=== PATIENT | female | born 1970 | race Caucasian/White ===

== ENCOUNTER 2017-04-29 00:06 | Inpatient (IN) | payer OTHER ==
[2017-04-29] VITALS (13 sets, daily range): BP systolic 96–141; BP diastolic 43–86; PULSE 80–98; RESP 16–24; TEMP 97.9–99.7; O2SAT 93–99
[~2017-04-29] VITALS: Ht 160 cm; Wt 146.8 kg
--- NOTE | 2017-04-29 00:33 | PD ---
HPI Chief Complaint: Trauma (Alert) Time Seen by Provider: 00:16 Travel History International Travel<30 days: No Contact w/Intl Traveler<30days: No History of Present Illness HPI The patient is a 47 year old female who presents to the [facility] emergency department with a history of tripping and falling at a friend's house prior to arrival. She reports that she tripped on a carpet. She is unsure how she landed. She reports that she did strike her face on the wall. She denies having a loss of consciousness. She reports that she does have neck pain, right upper arm pain, and left knee pain. 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 She reports that she last received an injection of Lovenox a week ago. She is unsure when her tetanus was last updated. She denies having any numbness or tingling to her arms or legs. She denies having any weakness of her arms or legs. She denies having any chest pain, chest pressure, or shortness of breath currently. She denies having any abdominal pain. She denies having any recent vomiting, diarrhea, or urinary symptoms. She reports that she does have a history of chronic pain and does take oxycodone as needed. [facility] Past Medical History Narrative Medical The patient's past medical history is significant for prior DVT and PE, chronically anticoagulated on Coumadin, history of scleroderma, history of antiphospholipid antibody syndrome. Past Surgical History Narrative Surgical The patient has a past surgical history significant for a meniscus repair, Jsldzm-y-Oynl placement. Social History Alcohol Use: No Tobacco Use: No Substance Use: No Allergies-Medications (Allergen,Severity, Reaction): Coded Allergies: Sulfa (Sulfonamide Antibiotics) (Verified Allergy, Intermediate, 04/29/17) penicillin G (Verified Allergy, Intermediate, 04/29/17) Reported Meds & Prescriptions Reported Meds & Active Scripts Active Reported Minipress (Prazosin HCl) 5 Mg Cap 5 Mg PO BID Gabapentin 100 Mg Cap 100 Mg PO BID Prednisone 5 Mg Tab 5 Mg PO DAILY Sildenafil 20 Mg Tab 20 Mg PO TID Furosemide 20 Mg Tab 20 Mg PO BID Plaquenil (Hydroxychloroquine Sulfate) 200 Mg Tab 200 Mg PO BID Take with food Lexapro (Escitalopram Oxalate) 20 Mg Tab 20 Mg PO DAILY Pantoprazole (Pantoprazole Sodium) 40 Mg Tab 40 Mg PO DAILY Simvastatin 20 Mg Tab 20 Mg PO DAILY Warfarin 5 Mg Tab 5 Mg PO DAILY Nifedipine ER 24 HR (Nifedipine) 60 Mg Tab 60 Mg PO DAILY Warfarin 10 Mg Tab 10 Mg PO DAILY Flexeril (Cyclobenzaprine HCl) 10 Mg Tab 10 Mg PO HS Aspirin Children's (Aspirin) 81 Mg Chew 81 Mg CHEW DAILY Review of Systems Except as stated in HPI: all other systems reviewed are Neg General / Constitutional: No: Fever Eyes: No: Visual changes HENT: Positive: Headaches, Neck Pain, No: Neck Stiffness Cardiovascular: No: Chest Pain or Discomfort Respiratory: No: Shortness of Breath Gastrointestinal: No: Nausea, Vomiting, Diarrhea, Abdominal Pain Genitourinary: No: Dysuria Musculoskeletal: Positive: Myalgias, Arthralgias, Limited ROM, Pain, No: Atrophy Skin: No Rash Neurologic: No: Weakness, Focal Abnormalities, Change in Mentation, Slurred Speech, Sensory Disturbance Psychiatric: No: Depression Endocrine: No: Polydipsia Hematologic/Lymphatic: No: Easy Bruising Physical Exam Narrative General: The patient is a well-developed well-nourished female, uncomfortable appearing on examination reporting right arm pain, left knee pain, and neck pain. The patient is brought in by ambulance services. The patient refused a backboard and cervical spine immobilization prior to arrival. However when she arrives to this facility, the patient is agreeable to have a cervical collar placed. This was placed at this time. Head and Neck exam: Head is normocephalic, with evidence of trauma around the right eye. The patient reports having upper lid tenderness on palpation, superior orbital ridge tenderness on palpation. No crepitus or step-off. No facial bone tenderness or increased facial bone mobility noted on palpation. Eyes: EOMI, pupils are equal round and reactive to light. The patient has periorbital ecchymosis around the right eye. The patient has intact sensation in bilateral eyes. Nose: Midline septum with pink mucous membranes Mouth: Dentition unremarkable. Moist mucus membranes. Posterior oropharynx is not erythematous. No tonsillar hypertrophy. Uvula midline. Airway patent. Neck: The patient is immobilized in a cervical collar. No tracheal deviation. The trachea appears midline. Cardiovascular: Regular rate and rhythm with a 2/6 systolic murmur, no gallops or rubs. No pulse deficit to the extremities on simultaneous auscultation and palpation of her radial artery. Lungs: Clear to auscultation bilaterally. No wheezes, rhonchi, or rales. No chest wall tenderness to palpation. No erythema or ecchymosis noted. No crepitus , step off, or flail segment noted. Abdomen: Soft, without tenderness to palpation in all 4 quadrants of the abdomen. No guarding, rebound, or rigidity. No erythema or ecchymosis noted. Extremities: No instability or pain noted on pelvic rock. No clubbing, cyanosis , or edema. 2+ pulses in all 4 extremities. No extremity tenderness or deformity noted on palpation or passive/ active range of motion, except in the area of interest, the right upper arm, and left knee. The patient is noted on examination of the left knee to have anterior swelling and hematoma formation. The patient has decreased range of motion reported related to pain. The patient is unable to flex her knee. The patient is able to lift her left leg with 5/5 strength. The patient denies having any left hip pain. The patient on examination of the right upper arm is noted to have tenderness on palpation overlying the midshaft of the humerus up into the shoulder. There is no crepitus or step-off palpated, however the patient does have decreased range of motion. No open wounds. Back: No spinous process tenderness to palpation. No stepoff or crepitus noted. No costovertebral angle tenderness to palpation. No erythema or ecchymosis. Neurologic Exam: Cranial nerves 2-12 were intact on exam. Strength is 5/5 in all 4 extremities. No sensory deficits noted. Skin Exam: No rash noted. Intact skin that is warm and dry. Data Data Last Documented VS Vital Signs Date Time Temp Pulse Resp B/P (MAP) Pulse Ox O2 Delivery O2 Flow Rate FiO2 04/29/17 01:28 87 20 133/62 (85) 96 Nasal Cannula 2.00 04/29/17 00:27 97.9 Orders Orders I-Stat Profile (04/29/17 00:16) Complete Blood Count With Diff (04/29/17 00:16) Prothrombin Time / Inr (Pt) (04/29/17 00:16) Act Partial Throm Time (Ptt) (04/29/17 00:16) Type And Screen (04/29/17 00:16) Fibrinogen (04/29/17 00:16) Alcohol (Ethanol) (04/29/17 00:16) Beta Hcg (Quant/Titer) (04/29/17 00:16) Red Blood Cells (Rbc) (04/29/17 00:16) Chest, Single Ap (04/29/17 00:16) Pelvis, Ap Only (Routine) (04/29/17 00:16) Ct Brain W/O Iv Contrast(Rout) (04/29/17 00:16) Ct Cerv Spine W/O Contrast (04/29/17 00:16) Ct Abd/Pel W Iv Contrast(Rout) (04/29/17 00:16) Ct Thorax/ Chest W Iv Contrast (04/29/17 00:16) Apply Cervical Collar (04/29/17 00:16) Iv Access Insert/Monitor (04/29/17 00:16) Ecg Monitoring (04/29/17 00:16) Oximetry (04/29/17 00:16) Oxygen Administration (04/29/17 00:16) Drug Screen, Random Urine (04/29/17 00:16) Knee, Ltd (1 Or 2vws) (04/29/17 00:16) Ct Facial Bones W/O Iv Cont (04/29/17 00:16) Propofol 200 Mg/20 Ml Inj (Diprivan 200 (04/29/17 00:35) Propofol 200 Mg/20 Ml Inj (Diprivan 200 (04/29/17 00:46) Morphine Inj (Morphine Inj) (04/29/17 00:51) Ondansetron Inj (Zofran Inj) (04/29/17 00:51) Humerus, One View (04/29/17 ) Humerus, One View (04/29/17 00:16) Collar [place] (04/29/17 ) Sling And Swathe (04/29/17 ) Cefazolin 2 Gm Premix (Ancef 2 Gm Premix (04/29/17 01:08) Hqsj-Mmd-Jkijjc (Booster) Inj (Boostrix (04/29/17 01:07) Sodium Chlor 0.9% 1000 Ml Inj (Ns 1000 M (04/29/17 01:15) Glyf-Gce-Ctvrvg (Booster) Inj (Boostrix (04/29/17 01:41) Consult Orthopedic (04/29/17 ) Admit Order (Ed Use Only) (04/29/17 02:19) AGID (04/29/17 00:28) Labs Laboratory Tests Test 04/29/17 00:20 White Blood Count 8.9 TH/MM3 Red Blood Count 3.72 MIL/MM3 Hemoglobin 10.1 GM/DL Bedside Hemoglobin 10.9 G/DL Hematocrit 31.6 % Bedside Hematocrit 32.0 % Mean Corpuscular Volume 84.9 FL Mean Corpuscular Hemoglobin 27.0 PG Mean Corpuscular Hemoglobin Concent 31.8 % Red Cell Distribution Width 18.7 % Platelet Count 406 TH/MM3 Mean Platelet Volume 7.2 FL Neutrophils (%) (Auto) 78.4 % Lymphocytes (%) (Auto) 10.5 % Monocytes (%) (Auto) 9.9 % Eosinophils (%) (Auto) 0.4 % Basophils (%) (Auto) 0.8 % Neutrophils # (Auto) 7.0 TH/MM3 Lymphocytes # (Auto) 0.9 TH/MM3 Monocytes # (Auto) 0.9 TH/MM3 Eosinophils # (Auto) 0.0 TH/MM3 Basophils # (Auto) 0.1 TH/MM3 CBC Comment DIFF FINAL Differential Comment Prothrombin Time 50.2 SEC Prothromb Time International Ratio 5.0 RATIO Activated Partial Thromboplast Time 45.5 SEC Fibrinogen 347 mg/dL Bedside Sodium 140 MMOL/L Bedside Potassium 4.1 MMOL/L Bedside Chloride 102 MMOL/L Bedside Blood Urea Nitrogen 11 MG/DL Bedside Creatinine 0.8 MG/DL Bedside Glucose 102 MG/DL Human Chorionic Gonadotropin, Quant LESS THAN 1 MIU/ML Ethyl Alcohol Level LESS THAN 3 MG/DL [facility] Medical Screen Exam Complete: Yes Emergency Medical Condition: Yes Medical Record Reviewed: Yes Interpretation(s) Last Impressions Pelvis X-Ray 04/29/1715 Signed Impressions: Service Date/Time: Saturday, April 29, 2017 00:21 - CONCLUSION: 1. No acute fracture or dislocation. Adan Shrestha MD Maxillofacial CT 04/29/1715 Signed Impressions: Service Date/Time: Saturday, April 29, 2017 00:59 - CONCLUSION: 1. No acute facial fracture. Adan Shrestha MD Knee X-Ray 04/29/176 Signed Impressions: Service Date/Time: Saturday, April 29, 2017 00:21 - CONCLUSION: 1. No acute fracture or dislocation. Adan Shrestha MD Humerus X-Ray 04/29/176 Signed Impressions: Service Date/Time: Saturday, April 29, 2017 00:21 - CONCLUSION: 1. Redemonstration of impacted slightly comminuted fracture of the humeral head with interval reduction of the distal fragment. Adan Shrestha MD ADDENDUM: There is a large fragment of the humeral head that remains inferiorly displaced. Adan Shrestha MD Head CT 04/29/1715 Signed Impressions: Service Date/Time: Saturday, April 29, 2017 00:59 - CONCLUSION: 1. No acute intracranial abnormality. Adan Shrestha MD Chest X-Ray 04/29/1715 Signed Impressions: Service Date/Time: Saturday, April 29, 2017 00:21 - CONCLUSION: 1. Comminuted fracture of the right humeral head. 2. Otherwise, negative portable chest status post trauma. Adan Shrestha MD Chest CT 04/29/176 Signed Impressions: Service Date/Time: Saturday, April 29, 2017 00:59 - CONCLUSION: 1. Comminuted impacted fracture of the right humeral head with displacement of large humeral head fragment anteriorly and inferiorly with respect to the glenoid fossa. 2. Mild diffuse ground glass opacities in the lower lobes, likely atelectasis although pulmonary contusions cannot be entirely excluded. 3. Mildly dilated fluid filled esophagus. Adan Shrestha MD Cervical Spine CT 04/29/176 Signed Impressions: Service Date/Time: Saturday, April 29, 2017 00:59 - CONCLUSION: 1. No acute fracture or subluxation. Adan Shrestha MD Abdomen/Pelvis CT 04/29/176 Signed Impressions: Service Date/Time: Saturday, April 29, 2017 00:59 - CONCLUSION: 1. No CT evidence for acute traumatic injury in the abdomen or pelvis. 2. 8mm nonobstructing calcified calyceal calculus in the inferior pole of the right kidney. Adan Shrestha MD Upper Extremity CT 04/29/17 Signed Impressions: Service Date/Time: Saturday, April 29, 2017 08:24 - CONCLUSION: Comminuted and displaced fracture through the right proximal humeral surgical neck with displaced and dislocated humeral head fragment which is displaced medially and the greater tuberosity and lateral aspect of the humeral head displaced laterally. Eleazar Triplett MD Humerus X-Ray 04/29/17 Signed Impressions: Service Date/Time: Saturday, April 29, 2017 00:21 - CONCLUSION: 1. Partially imaged comminuted fracture the right humeral head. Adan Shrestha MD Differential Diagnosis Right shoulder fracture, versus dislocation, versus humerus fracture, versus contusion, versus left knee contusion, versus left knee fracture, versus intracranial hemorrhage, versus cervical spine injury, versus facial fracture. Narrative Course During the course of the patient's emergency department visit, the patient's history, examination, and differential diagnosis were reviewed with the patient. A level 2 trauma alert was called on this patient as the patient met criteria based on the history of fall, head injury, anticoagulation on Coumadin. The patient was placed on a compliance monitor with oximetry and frequent blood pressure monitoring. The patient had IV access obtained and blood work sent for analysis. The patient was initially provided morphine for pain, Zofran for nausea. The patient was given an update of his tetanus, Ancef 2 g was provided IV. The patient's laboratory studies were reviewed and remarkable for a white count of 8.9, hemoglobin 10.1, platelets 4 6 with 78.4 neutrophils, i-STAT was unremarkable with creatinine of 0.8, INR 5.0, alcohol level less than 3 Radiology studies were reviewed and remarkable for an x-ray of the left knee that shows no acute fracture or dislocation, pelvis x-ray shows no acute abnormality. Right humerus fracture reveals a partially imaged comminuted fracture of the right humeral head with inferior displacement of the distal fragment. Repeat x-ray postreduction revealed redemonstration of impacted slightly comminuted fracture of the humeral head with interval reduction of the distal fragment. Large fragment of the humeral head continues to remain inferiorly displaced. A call was placed out to Dr. Ca, the orthopedic physician on-call at approximately 2 AM. We did discuss the patient's findings regarding the initial x-ray of the patient's humerus, repeat x-ray after relocation, and CT scan findings on CT scan of the chest. She recommends continuation of the sling and swath and holding Coumadin as her INR is 5. I spoke to Dr. Salinas regarding this patient's case at approximately 2:15 AM. We discussed the imaging findings and as the patient has a single traumatic injury, and no intervention is necessary by trauma surgery, he recommends that the patient be admitted to the hospitalist service. The patient's results were discussed with the patient, including the plan of care. I explained that further testing and/ or monitoring is indicated based on the patient's history, examination, and/ or laboratory findings. Therefore, I recommended admission for additional evaluation. The patient expressed understanding and was agreeable with this plan. The patient was admitted to the hospital in stable condition and sent to a bed under the care of the [facility] service. Procedures Procedure Narrative After the risks and benefits were discussed the following procedure was performed: MODERATE SEDATION: The patient was placed on a compliance monitor and pulse oximetry. An ambu bag and suction was immediately available at bedside. The patient was monitored by the nurse. Oxygen saturation , heart rate and blood pressure were monitored. Procedural sedation was acheived using propofol. The patient was observed until awake and alert. Procedural Sedation time in attendance was 20 minutes. Closed reduction of left shoulder fracture dislocation: Gentle traction was applied in line with the patient's humerus while slightly abducting the right arm and externally rotating the shoulder. The patient had palpable realignment of the fracture fragments. A postreduction film revealed that the patient's humeral head appeared to be realigned back in the glenoid fossa. Another fracture fragment was noted off of the humeral head. Trauma Alert - Level Two Trauma Alert Level Two: Full trauma team activate, Patient evaluated, Trauma surgeon called Physician Communication The patient's case including history, pertinent physical examination findings, and laboratory studies were discussed with Dr. Ca, Dr. Grewal, and Dr. Tracey. It was agreed that the patient would be admitted to the [facility] service. Diagnosis Diagnosis: Primary Impression: Head injury Qualified Codes: S09.90XA - Unspecified injury of head, initial encounter Additional Impressions: Anticoagulated on Coumadin Elevated INR Fracture of humeral head, closed Qualified Codes: S42.291A - Other displaced fracture of upper end of right humerus, initial encounter for closed fracture Admitting Physician Requests: it Estephania Zafar MD Apr 29, 2017 00:33
[2017-04-29] MEDS ORDERED: PROPOFOL 200 MG/20 ML AMP ONE ×2 (00:35→00:46)
[2017-04-29] MEDS ORDERED: GABA100C4 PO (00:44)
[2017-04-29] MEDS ORDERED: PLAQ200T PO (00:44)
[2017-04-29] MEDS ORDERED: PRED5TAB PO (00:44)
[2017-04-29] MEDS ORDERED: WARF-22 PO (00:44)
[2017-04-29] MEDS ORDERED: SILD20TA11 PO (00:44)
[2017-04-29] MEDS ORDERED: PRAZ5 PO (00:44)
[2017-04-29] MEDS ORDERED: FURO20TA PO (00:44)
[2017-04-29] MEDS ORDERED: LEXA20TA PO (00:44)
[2017-04-29] MEDS ORDERED: CYCL10TA PO (00:44)
[2017-04-29] MEDS ORDERED: WARF-23 PO (00:44)
[2017-04-29] MEDS ORDERED: PANT40TA3 PO (00:44)
[2017-04-29] MEDS ORDERED: SIMV20TA PO (00:44)
[2017-04-29] MEDS ORDERED: NIFE60TA58 PO (00:44)
[2017-04-29] MEDS ORDERED: ASPI81CH7 CHEW (00:44)
[2017-04-29 00:46] LABS: BASOPHIL # 0.1 TH/MM3 (0-0.2); BASOPHIL % 0.8 % (0.0-2.0); EOSINOPHIL % 0.4 % (0.0-4.0); HEMATOCRIT 31.6 % (35.0-46.0); HEMOGLOBIN 10.1 GM/DL (11.6-15.3); LYMPH % 10.5 % (9.0-44.0); LYMPHOCYTE # 0.9 TH/MM3 (1.0-4.8); MEAN CELL VOLUME 84.9 FL (80.0-100.0); MEAN CORPUSCULAR HGB CONC 31.8 % (32.0-36.0); MEAN PLATELET VOLUME 7.2 FL (7.0-11.0); MONO % 9.9 % (0.0-8.0); MONOCYTE # 0.9 TH/MM3 (0-0.9); NEUT % 78.4 % (16.0-70.0); PLATELET COUNT 406 TH/MM3 (150-450); RED BLOOD COUNT 3.72 MIL/MM3 (4.00-5.30); RED CELL DISTRIBUTION WIDTH 18.7 % (11.6-17.2); WHITE BLOOD COUNT 8.9 TH/MM3 (4.0-11.0)
[2017-04-29] MEDS ORDERED: ONDANSETRON HCL 4 MG/2 ML VIAL ONE (00:51)
[2017-04-29] MEDS ORDERED: MORPHINE SULFATE 4 MG/ML INJ ONE (00:51)
[2017-04-29] MEDS ORDERED: IOHEXOL 350 MG/ML 10 ML VIAL (for RAD DIAG) IVCONTRAST ONE (00:59)
[2017-04-29] MEDS ORDERED: DIPHTH/TETANUS/ACEL PERTUSSIS (BOOSTER) 0.5 ML VIAL/PFS IM ONE ×2 (01:07→01:41)
[2017-04-29] MEDS ORDERED: ceFAZolin 2 GM PREMIX 50 ML IV STA (01:08)
--- NOTE | 2017-04-29 01:11 | RADRPT ---
EXAM DATE/TIME: 04/29/2017 00:59 [facility] COMPARISON: No previous studies available for comparison. INDICATIONS : Trauma alert; fall. RADIATION DOSE: 69.15 CTDIvol (mGy) MEDICAL HISTORY : Non-responsive. SURGICAL HISTORY : Non-responsive. ENCOUNTER: Initial ACUITY: 1 day PAIN SCALE: Non-responsive LOCATION: cranial TECHNIQUE: Multiple contiguous axial images were obtained of the head. Using automated exposure control and adj ustment of the mA and/or kV according to patient size, radiation dose was kept as low as reasonably a chievable to obtain optimal diagnostic quality images. DICOM format image data is available electro nically for review and comparison. FINDINGS: CEREBRUM: The ventricles are normal for age. No evidence of midline shift, mass lesion, hemorrhage or acute in farction. No extra-axial fluid collections are seen. POSTERIOR FOSSA: The cerebellum and brainstem are intact. The 4th ventricle is midline. The cerebellopontine angle i s unremarkable. EXTRACRANIAL: The visualized portion of the orbits is intact. SKULL: The calvaria is intact. No evidence of skull fracture. CONCLUSION: 1. No acute intracranial abnormality. Adan Shrestha MD on April 29, 2017 at 1:09 Board Certified Radiologist. This report was verified electronically.
[2017-04-29 01:12] LABS: PROTHROMBIN TIME - PATIENT 50.2 SEC (9.8-11.6)
[2017-04-29] MEDS ORDERED: SODIUM CHLOR 0.9% 1000 ML INJ 1,000 ML IV ONE (01:15)
--- NOTE | 2017-04-29 01:17 | RADRPT ---
EXAM DATE/TIME: 04/29/2017 00:21 [facility] COMPARISON: No previous studies available for comparison. INDICATIONS : Trauma alert. Fall. MEDICAL HISTORY : None. SURGICAL HISTORY : None. ENCOUNTER: Initial ACUITY: 1 day PAIN SCORE: 10/10 LOCATION: Bilateral chest FINDINGS: Right IJ Iczeuf-w-Mupb with tubing in the mid SVC. No significant focal pleural or parenchymal opacit ies. No pneumothorax or effusion. Cardiomediastinal contours are within normal limits given technique . Comminuted fracture of the right humerus CONCLUSION: 1. Comminuted fracture of the right humeral head. 2. Otherwise, negative portable chest status post trauma. Adan Shrestha MD on April 29, 2017 at 1:15 Board Certified Radiologist. This report was verified electronically.
--- NOTE | 2017-04-29 01:18 | RADRPT ---
EXAM DATE/TIME: 04/29/2017 00:21 [facility] COMPARISON: No previous studies available for comparison. INDICATIONS : Trauma alert. Fall. Right humerus pain. MEDICAL HISTORY : None. SURGICAL HISTORY : None. ENCOUNTER: Initial ACUITY: 1 day PAIN SCORE: 10/10 LOCATION: Right humerus. FINDINGS: Comminuted fracture of the right humeral head with inferior displacement of the distal fragment. Regine ining osseous structures are intact. Soft tissues are unremarkable. CONCLUSION: 1. Partially imaged comminuted fracture the right humeral head. Adan Shrestha MD on April 29, 2017 at 1:16 Board Certified Radiologist. This report was verified electronically.
--- NOTE | 2017-04-29 01:21 | RADRPT ---
EXAM DATE/TIME: 04/29/2017 00:21 [facility] COMPARISON: No previous studies available for comparison. INDICATIONS : Trauma alert. Post fall. MEDICAL HISTORY : None. SURGICAL HISTORY : None. ENCOUNTER: Initial ACUITY: 1 day PAIN SCORE: 10/10 LOCATION: pelvis. FINDINGS: A single frontal view of the pelvis demonstrates no evidence of fracture. The bony pelvic ring is in tact. Bony mineralization is normal. The soft tissues are intact. CONCLUSION: 1. No acute fracture or dislocation. Adan Shrestha MD on April 29, 2017 at 1:20 Board Certified Radiologist. This report was verified electronically.
--- NOTE | 2017-04-29 01:21 | RADRPT ---
EXAM DATE/TIME: 04/29/2017 00:21 This report includes an Addendum and supersedes previous reports for this exam. [facility] COMPARISON: CHEST SINGLE AP, April 29, 2017, 0:21. INDICATIONS : Post reduction. Trauma alert. Post fall. MEDICAL HISTORY : None. SURGICAL HISTORY : None. ENCOUNTER: Initial ACUITY: 1 day PAIN SCORE: 10/10 LOCATION: Right humerus. FINDINGS: There has been interval reduction of the right humerus with a near-anatomic alignment of the humeral head with respect to the glenoid. Redemonstration of an impacted slightly comminuted fracture of the humeral head. Remainder of the exam is unchanged. CONCLUSION: 1. Redemonstration of impacted slightly comminuted fracture of the humeral head with interval reducti on of the distal fragment. Adan Shrestha MD on April 29, 2017 at 1:17 Board Certified Radiologist. This report was verified electronically. ADDENDUM: There is a large fragment of the humeral head that remains inferiorly displaced. Adan Shrestha MD on April 29, 2017 at 1:26 Board Certified Radiologist. This report was verified electronically.
--- NOTE | 2017-04-29 01:22 | RADRPT ---
EXAM DATE/TIME: 04/29/2017 00:21 [facility] COMPARISON: No previous studies available for comparison. INDICATIONS : Trauma alert. Left knee pain post fall. MEDICAL HISTORY : None. SURGICAL HISTORY : None. ENCOUNTER: Initial ACUITY: 1 day PAIN SCORE: 10/10 LOCATION: Left knee. FINDINGS: Two view examination of the left knee demonstrates no evidence of fracture or dislocation. Bony mine ralization is normal. Degenerative changes most prominently at the medial and patellofemoral compartm ents. The suprapatellar soft tissues have a normal configuration. CONCLUSION: 1. No acute fracture or dislocation. Adan Shrestha MD on April 29, 2017 at 1:20 Board Certified Radiologist. This report was verified electronically.
--- NOTE | 2017-04-29 01:30 | RADRPT ---
EXAM DATE/TIME: 04/29/2017 00:59 [facility] COMPARISON: No previous studies available for comparison. INDICATIONS : Trauma alert; fall. RADIATION DOSE: 32.24 CTDIvol (mGy) MEDICAL HISTORY : Non-responsive. SURGICAL HISTORY : Non-responsive. ENCOUNTER: Initial ACUITY: 1 day PAIN SCALE: Non-responsive LOCATION: Bilateral neck TECHNIQUE: Volumetric scanning of the cervical spine was performed. Multiplanar reconstructions in the sagittal, coronal and oblique axial planes were performed. Using automated exposure control and adjustment o f the mA and/or kV according to patient size, radiation dose was kept as low as reasonably achievable to obtain optimal diagnostic quality images. DICOM format image data is available electronically f or review and comparison. FINDINGS: Vertebral body heights are maintained. Osseous structures are intact without evidence for acute bony fracture. Dens is intact. Sagittal alignment is maintained. There is a normal C1-2 relationship. Face ts are normally aligned. There is no significant prevertebral soft tissue hematoma. No significant ce rvical adenopathy or gross mass. The thyroid appears unremarkable. Visualized lung apices are clear w ithout pneumothorax. CONCLUSION: 1. No acute fracture or subluxation. Adan Shrestha MD on April 29, 2017 at 1:28 Board Certified Radiologist. This report was verified electronically.
--- NOTE | 2017-04-29 01:40 | RADRPT ---
EXAM DATE/TIME: 04/29/2017 00:59 [facility] COMPARISON: No previous studies available for comparison. INDICATIONS : Trauma alert; fall. RADIATION DOSE: 26.35 CTDIvol (mGy) MEDICAL HISTORY : Non-responsive. SURGICAL HISTORY : Non-responsive. ENCOUNTER: Initial ACUITY: 1 day PAIN SCORE: 6/10 LOCATION: Bilateral facial TECHNIQUE: Volumetric scanning of the facial bones was performed. Using automated exposure control and adjustme nt of the mA and/or kV according to patient size, radiation dose was kept as low as reasonably achiev able to obtain optimal diagnostic quality images. DICOM format image data is available electronicMEDOP y for review and comparison. FINDINGS: ORBITS: The orbital and infraorbital osseous structures are intact. The retroconal structures have a normal configuration. No radiopaque foreign bodies are seen. NASAL BONE: The nasal bone and maxillary spine are intact ZYGOMATIC ARCHES: Symmetric without evidence of fracture. SINUSES: The maxillary, ethmoid and frontal sinuses are intact. No air-fluid levels seen. NASAL CAVITY: The nasal septum is intact and midline. The lacrimal ducts are intact. SOFT TISSUES: No radiopaque foreign bodies seen. Right anterior scalp/periorbital hematoma.. INTRACRANIAL: No intracranial air seen. CRIBIFORM PLATE: Grossly intact. CONCLUSION: 1. No acute facial fracture. Adan Shrestha MD on April 29, 2017 at 1:38 Board Certified Radiologist. This report was verified electronically.
--- NOTE | 2017-04-29 01:44 | RADRPT ---
EXAM DATE/TIME: 04/29/2017 00:59 [facility] COMPARISON: No previous studies available for comparison. INDICATIONS : Trauma alert; fall. IV CONTRAST: 100 cc Omnipaque 350 (iohexol) IV ; Cumulative dose for multiple exams. RADIATION DOSE: 36.66 CTDIvol (mGy) ; Combined studies - Thorax/Abdomen/Pelvis; Patient body habitus MEDICAL HISTORY : Non-responsive. SURGICAL HISTORY : Non-responsive. ENCOUNTER: Initial ACUITY: 1 day PAIN SCALE: 5/10 LOCATION: Bilateral chest TECHNIQUE: Volumetric scanning of the chest was performed. Using automated exposure control and adjustment of t he mA and/or kV according to patient size, radiation dose was kept as low as reasonably achievable to obtain optimal diagnostic quality images. DICOM format image data is available electronically for review and comparison. Follow-up recommendations for detected pulmonary nodules are based at a minimum on nodule size and pa tient risk factors according to Fleischner Society Guidelines. FINDINGS: LUNGS: Mild ground glass opacities in the lower lobes bilaterally likely reflecting atelectasis. PLEURA: No significant pleural effusion or pneumothorax. MEDIASTINUM: The heart and great vessels demonstrate no acute abnormality. There is no mediastinal or hilar lymph adenopathy. The esophagus is slightly dilated and fluid-filled. AXILLAE: Within normal limits. No lymphadenopathy. SKELETAL: There is a slightly comminuted impacted displaced fracture of the right humeral head. Large humeral h ead fragment is noted anteriorly and inferiorly with respect to the glenoid fossa. MISCELLANEOUS: The visualized upper abdominal organs demonstrate no acute abnormality. CONCLUSION: 1. Comminuted impacted fracture of the right humeral head with displacement of large humeral head fra gment anteriorly and inferiorly with respect to the glenoid fossa. 2. Mild diffuse ground glass opacities in the lower lobes, likely atelectasis although pulmonary cont usions cannot be entirely excluded. 3. Mildly dilated fluid filled esophagus. Adan Shrestha MD on April 29, 2017 at 1:39 Board Certified Radiologist. This report was verified electronically.
--- NOTE | 2017-04-29 01:47 | RADRPT ---
EXAM DATE/TIME: 04/29/2017 00:59 [facility] COMPARISON: No previous studies available for comparison. INDICATIONS : Trauma alert; fall. IV CONTRAST: 100 cc Omnipaque 350 (iohexol) IV ; Cumulative dose for multiple exams. ORAL CONTRAST: No oral contrast ingested. RADIATION DOSE: 36.66 CTDIvol (mGy) ; Combined studies - Thorax/Abdomen/Pelvis; Patient body habitus MEDICAL HISTORY : Non-responsive. SURGICAL HISTORY : Non-responsive. ENCOUNTER: Initial ACUITY: 1 day PAIN SCALE: 5/10 LOCATION: Bilateral abdomen. TECHNIQUE: Volumetric scanning of the abdomen and pelvis was performed. Using automated exposure control and ad justment of the mA and/or kV according to patient size, radiation dose was kept as low as reasonably achievable to obtain optimal diagnostic quality images. DICOM format image data is available electro nically for review and comparison. FINDINGS: LOWER LUNGS: The visualized lower lungs are clear. LIVER: Homogeneous density without lesion. There is no dilation of the biliary tree. No calcified gallston es. SPLEEN: Normal size without lesion. PANCREAS: Within normal limits. KIDNEYS: 8mm calcified calyceal calculus in the right kidney. Kidneys otherwise symmetrical in appearance with out evidence for hydronephrosis or perinephric fluid. ADRENAL GLANDS: Within normal limits. VASCULAR: There is no aortic aneurysm. BOWEL/MESENTERY: The stomach, small bowel, and colon demonstrate no acute abnormality. There is no free intraperitone al air or fluid. ABDOMINAL WALL: Within normal limits. RETROPERITONEUM: There is no lymphadenopathy. BLADDER: No wall thickening or mass. REPRODUCTIVE: Within normal limits. INGUINAL: There is no lymphadenopathy or hernia. MUSCULOSKELETAL: Osseous structures are intact without evidence for acute bony fracture. Degenerative spondylosis of t he lumbar spine. CONCLUSION: 1. No CT evidence for acute traumatic injury in the abdomen or pelvis. 2. 8mm nonobstructing calcified calyceal calculus in the inferior pole of the right kidney. Adan Shrestha MD on April 29, 2017 at 1:43 Board Certified Radiologist. This report was verified electronically.
[2017-04-29] MEDS: SODIUM CHLOR 0.9% 1000 ML INJ 1,000 ML IV SCH ×3 (03:00→22:33)
[2017-04-29] MEDS ORDERED: SODIUM CHLORIDE 0.9% FLUSH 10 ML FLUSH IV FLUSH PRN (03:00)
[2017-04-29] MEDS ORDERED: NALOXONE HCL 0.4 MG/ML AMP IV PUSH PRN (03:00)
[2017-04-29] MEDS ORDERED: MORPHINE SULFATE 2 MG/ML INJ IV PUSH PRN (03:00)
[2017-04-29] MEDS ORDERED: ACETAMINOPHEN 325 MG TAB PO PRN (03:00)
[2017-04-29] MEDS ORDERED: MORPHINE SULFATE 4 MG/ML INJ IV PUSH PRN (03:00)
[2017-04-29] MEDS ORDERED: ONDANSETRON HCL 4 MG/2 ML VIAL IVP PRN (03:00)
[2017-04-29] MEDS ORDERED: MORPHINE SULFATE 4 MG/ML INJ IV PUSH ONE (03:15)
--- NOTE | 2017-04-29 03:57 | HHI.HP ---
HPI Service [facility] Primary Care Physician No Primary Care Physician Admission Diagnosis Fall, Head injury, supratheraputic INR, right humeral head fx Diagnoses: Travel History International Travel<30 Days: No Contact w/Intl Traveler <30 Da: No Traveled to Known Affected Are: No History of Present Illness 47-year-old female with a past medical history significant for scleroderma and anti-phospholipid syndrome anticoagulated on Coumadin presents to the emergency department for evaluation of a fall. The patient reports that she tripped over a rug and fell into a wall. She is on vacation from [place]. The patient is unsure exactly how she landed. She stated that she hit her face on the wall. Denies any loss of consciousness. She complains of right thigh, right arm/shoulder and left knee pain. Her INR is supratherapeutic at 5.0. Review of Systems Except as stated in HPI: all other systems reviewed are Neg Past Family Social History Past Medical History Scleroderma Antiphospholipid syndrome anticoagulated on Coumadin History of DVT/PE Past Surgical History Left knee meniscectomy I&D left leg 2 Reported Medications Reported Meds & Active Scripts Active Reported Minipress (Prazosin HCl) 5 Mg Cap 5 Mg PO BID Gabapentin 100 Mg Cap 100 Mg PO BID Prednisone 5 Mg Tab 5 Mg PO DAILY Sildenafil 20 Mg Tab 20 Mg PO TID Furosemide 20 Mg Tab 20 Mg PO BID Plaquenil (Hydroxychloroquine Sulfate) 200 Mg Tab 200 Mg PO BID Take with food Lexapro (Escitalopram Oxalate) 20 Mg Tab 20 Mg PO DAILY Pantoprazole (Pantoprazole Sodium) 40 Mg Tab 40 Mg PO DAILY Simvastatin 20 Mg Tab 20 Mg PO DAILY Warfarin 5 Mg Tab 5 Mg PO DAILY Nifedipine ER 24 HR (Nifedipine) 60 Mg Tab 60 Mg PO DAILY Warfarin 10 Mg Tab 10 Mg PO DAILY Flexeril (Cyclobenzaprine HCl) 10 Mg Tab 10 Mg PO HS Aspirin Children's (Aspirin) 81 Mg Chew 81 Mg CHEW DAILY Allergies: Coded Allergies: Sulfa (Sulfonamide Antibiotics) (Verified Allergy, Intermediate, 04/29/17) penicillin G (Verified Allergy, Intermediate, 04/29/17) Family History Father with diabetes mellitus Social History Occasional alcohol. Denies tobacco and illicit drugs. Physical Exam Vital Signs Vital Signs Date Time Temp Pulse Resp B/P (MAP) Pulse Ox O2 Delivery O2 Flow Rate FiO2 04/29/17 03:22 90 20 140/63 (88) 99 Room Air 04/29/17 01:28 87 20 133/62 (85) 96 Nasal Cannula 2.00 04/29/17 00:35 98 04/29/17 00:27 97.9 83 24 141/77 (98) 94 04/29/17 00:20 98 3.00 04/29/17 00:20 98 Nasal Cannula 3.00 Physical Exam GENERAL: Obese, female lying in bed SKIN: Ecchymoses surrounding right eye and swelling/ecchymoses over left knee HEAD: Normocephalic. No temporal or scalp tenderness. EYES: Pupils equal round and reactive. Extraocular motions intact. No scleral icterus. No injection or drainage. ENT: Nose without bleeding, purulent drainage or septal hematoma. Throat without erythema, tonsillar hypertrophy or exudate. Uvula midline. Airway patent. NECK: Trachea midline. No JVD or lymphadenopathy. Supple, nontender, no meningeal signs. CARDIOVASCULAR: Regular rate and rhythm. 4/6 CORNELIUS RESPIRATORY: Clear to auscultation. Breath sounds equal bilaterally. No wheezes , rales, or rhonchi. GASTROINTESTINAL: Abdomen soft, non-tender, nondistended. No hepato-splenomegaly , or palpable masses. No guarding. MUSCULOSKELETAL: Right arm in sling. Neurovascularly intact. No calf tenderness. NEUROLOGICAL: Awake and alert. Cranial nerves II through XII intact. Motor and sensory grossly within normal limits. Normal speech. Laboratory Laboratory Tests Test 04/29/17 00:20 White Blood Count 8.9 Red Blood Count 3.72 Hemoglobin 10.1 Bedside Hemoglobin 10.9 Hematocrit 31.6 Bedside Hematocrit 32.0 Mean Corpuscular Volume 84.9 Mean Corpuscular Hemoglobin 27.0 Mean Corpuscular Hemoglobin Concent 31.8 Red Cell Distribution Width 18.7 Platelet Count 406 Mean Platelet Volume 7.2 Neutrophils (%) (Auto) 78.4 Lymphocytes (%) (Auto) 10.5 Monocytes (%) (Auto) 9.9 Eosinophils (%) (Auto) 0.4 Basophils (%) (Auto) 0.8 Neutrophils # (Auto) 7.0 Lymphocytes # (Auto) 0.9 Monocytes # (Auto) 0.9 Eosinophils # (Auto) 0.0 Basophils # (Auto) 0.1 CBC Comment DIFF FINAL Differential Comment Prothrombin Time 50.2 Prothromb Time International Ratio 5.0 Activated Partial Thromboplast Time 45.5 Fibrinogen 347 Bedside Sodium 140 Bedside Potassium 4.1 Bedside Chloride 102 Bedside Blood Urea Nitrogen 11 Bedside Creatinine 0.8 Bedside Glucose 102 Human Chorionic Gonadotropin, Quant LESS THAN 1 Ethyl Alcohol Level LESS THAN 3 Result Diagram: 04/29/17 0020 Caprini VTE Risk Assessment Caprini VTE Risk Assessment: Mod/High Risk (score >= 2) Caprini Risk Assessment Model Point Value = 1 Point Value = 2 Point Value = 3 Point Value = 5 Age 41-60 Minor surgery BMI > 25 kg/m2 Swollen legs Varicose veins or History of unexplained or recurrent spontaneous Oral contraceptives or hormone replacement Sepsis (< 1 month) Serious lung disease, including pneumonia (< 1 month) Abnormal pulmonary function Acute myocardial infarction Congestive heart failure (< 1 month) History of inflammatory bowel disease Medical patient at bed rest Age 61-74 Arthroscopic surgery Major open surgery (> 45 min) Laparoscopic surgery (> 45 min) Malignancy Confined to bed (> 72 hours) Immobilizing plaster cast Central venous access Age >= 75 History of VTE Family history of VTE Factor V Leiden Prothrombin [id number] Lupus anticoagulant Anticardiolipin antibodies Elevated serum homocysteine Heparin-induced thrombocytopenia Other congenital or acquired thrombophilia Stroke (< 1 month) Elective arthroplasty Hip, pelvis, or leg fracture Acute spinal cord injury (< 1 month) Prophylaxis Regimen Total Risk Factor Score Risk Level Prophylaxis Regimen 0-1 Low Early ambulation 2 Moderate Order ONE of the following: *Sequential Compression Device (SCD) *Heparin 5000 units SQ BID 3-4 Higher Order ONE of the following medications: *Heparin 5000 units SQ TID *Enoxaparin/Lovenox 40 mg SQ daily (WT < 150 kg, CrCl > 30 mL/min) *Enoxaparin/Lovenox 30 mg SQ daily (WT < 150 kg, CrCl > 10-29 mL/min) *Enoxaparin/Lovenox 30 mg SQ BID (WT < 150 kg, CrCl > 30 mL/min) AND/OR *Sequential Compression Device (SCD) 5 or more Highest Order ONE of the following medications: *Heparin 5000 units SQ TID (Preferred with Epidurals) *Enoxaparin/Lovenox 40 mg SQ daily (WT < 150 kg, CrCl > 30 mL/min) *Enoxaparin/Lovenox 30 mg SQ daily (WT < 150 kg, CrCl > 10-29 mL/min) *Enoxaparin/Lovenox 30 mg SQ BID (WT < 150 kg, CrCl > 30 mL/min) AND *Sequential Compression Device (SCD) Assessment and Plan Assessment and Plan Assessment/plan: 1. Humeral head fracture Humerus x-ray significant for slightly comminuted fracture of the humeral head with a large fragment of the humeral head that remains inferiorly displaced Orthopedic surgery consulted, appreciate recommendations Nothing by mouth Dilaudid for pain 2. Status posttraumatic fall Remainder of imaging without acute fracture 3. Antiphospholipid syndrome/history of DVT/PE Anticoagulated on Coumadin with goal INR of 3.5-4.5 per patient INR 5.0 Coumadin on hold in anticipation of operative intervention Pharmacy consulted for assistance in Coumadin dosing postoperatively 4. Scleroderma Continue home medications FEN NPO NS at 100 cc/hr Electrolytes: monitor and replete prn Holding anticoagulation in anticipation of operative intervention Physician Certification 2 Midnight Certification Type: Admission for Inpatient Services Order for Inpatient Services The services are ordered in accordance with Medicare regulations or non- Medicare payer requirements, as applicable. In the case of services not specified as inpatient-only, they are appropriately provided as inpatient services in accordance with the 2-midnight benchmark. Estimated LOS (days): 2 2 days is the estimated time the patient will need to remain in the hospital, assuming treatment plan goals are met and no additional complications. Post-Hospital Plan: Not yet determined Nelia Tracey MD Apr 29, 2017 03:57
[2017-04-29] MEDS: HYDROmorphone HCL PF 2 MG/ML VIAL IV PRN ×5 (04:01→22:32)
[2017-04-29] MEDS: GABAPENTIN 100 MG CAP PO SCH ×2 (08:00→22:31)
[2017-04-29] MEDS: PRAVASTATIN SOD 40 MG TAB PO SCH (08:00)
[2017-04-29] MEDS: predniSONE 5 MG TAB PO SCH (08:00)
[2017-04-29] MEDS: PANTOPRAZOLE SOD 40 MG DELAYED RELEASE TAB PO SCH (08:01)
[2017-04-29] MEDS: FUROSEMIDE 20 MG TAB PO SCH ×2 (09:05→22:32)
[2017-04-29] MEDS: SILDENAFIL CITRATE 20 MG TAB PO SCH ×3 (09:05→18:00)
[2017-04-29] MEDS: NIFEdipine 60 MG SUSTAINED RELEASE TAB PO SCH (09:05)
[2017-04-29] MEDS: ESCITALOPRAM OXALATE 20 MG TAB PO SCH (09:05)
[2017-04-29] MEDS: HYDROXYCHLOROQUINE SULFATE 200 MG TAB PO SCH ×2 (09:05→22:31)
[2017-04-29] MEDS: PRAZOSIN HCL 5 MG CAP PO SCH ×2 (09:06→22:38)
[2017-04-29] MEDS: SODIUM CHLORIDE 0.9% FLUSH 10 ML FLUSH IV FLUSH SCH ×2 (09:07→22:32)
--- NOTE | 2017-04-29 09:12 | RADRPT ---
EXAM DATE/TIME: 04/29/2017 08:24 [facility] COMPARISON: HUMERUS RIGHT (1 VW), April 29, 2017, 0:21. HUMERUS RIGHT (1 VW), April 29, 2017, 0:21. INDICATIONS : Patient fell RADIATION DOSE: 28.32 CTDIvol (mGy) ; Patient body habitus MEDICAL HISTORY : None SURGICAL HISTORY : None. ENCOUNTER: Initial ACUITY: 1 day PAIN SCALE: 10/10 LOCATION: Right shoulder TECHNIQUE: Volumetric scanning of the shoulder was performed. Using automated exposure control and adjustment o f the mA and/or kV according to patient size, radiation dose was kept as low as reasonably achievable to obtain optimal diagnostic quality images. DICOM format image data is available electronically f or review and comparison. FINDINGS: There is a comminuted displaced fracture through the proximal right humeral surgical neck and greater tuberosity. The humeral head is dislocated and displaced medially in the axilla with approximately 3 .5 cm of displacement. It is also rotated approximately 90. The comminuted lateral aspect of the hum eral head including the tuberosities are displaced laterally. The scapula is intact without fracture. Additionally, the acromioclavicular joint is intact with mild osteoarthritis. There is surrounding s oft tissue swelling inflammatory changes adjacent to the fracture site. The visualized right chest wa ll demonstrates no rib fracture or pneumothorax. CONCLUSION: Comminuted and displaced fracture through the right proximal humeral surgical neck with displaced and dislocated humeral head fragment which is displaced medially and the greater tuberosity and lateral aspect of the humeral head displaced laterally. Eleazar Triplett MD on April 29, 2017 at 9:07 Board Certified Radiologist. This report was verified electronically.
--- NOTE | 2017-04-29 09:15 | RADRPT ---
EXAM DATE/TIME: 04/29/2017 08:24 [facility] COMPARISON: CT SHOULDER RIGHT W/O CONTRAST, April 29, 2017, 8:24. INDICATIONS : Patient fell RADIATION DOSE: CTDIvol (mGy) ; Reconstructed from previous dataset, no dose MEDICAL HISTORY : None SURGICAL HISTORY : None. ENCOUNTER: Initial ACUITY: 1 day PAIN SCALE: 10/10 LOCATION: Right shoulder TECHNIQUE: 3D reconstructions of the right shoulder were performed. DICOM format image data is available electr onically for review and comparison. FINDINGS: The 3-D reconstructions demonstrate the comminuted displaced fracture of the right proximal humerus w ith the primary fracture line extending through the surgical neck. The largest humeral head fragment is displaced and dislocated medially in the axilla with approximately 90 of rotation. The lateral as pect of the fracture fragments including the greater tuberosity are displaced laterally. The scapula is intact and acromioclavicular joint is intact with osteoarthritis. CONCLUSION: 3-D reconstructions again demonstrate the comminuted displaced right proximal humerus fracture. Rylee lopez refer to right shoulder CT examination for further details. Eleazar Triplett MD on April 29, 2017 at 9:11 Board Certified Radiologist. This report was verified electronically.
--- NOTE | 2017-04-29 11:03 | PD.CONS ---
HPI Service Orthopedic Surgeons Consult Requested By Primary Care Physician No Primary Care Physician Admission Diagnosis Fall, Head injury, supratheraputic INR, right humeral head fx Diagnoses: Chief Complaint: Right shoulder and left knee pain History of Present Illness 47-year-old female with a past medical history significant for scleroderma and anti-phospholipid syndrome anticoagulated on Coumadin presents to the emergency department after fall. The patient reports that she tripped over a rug and fell into a wall. She stated that she hit her face on the wall. Denies any loss of consciousness. She complains of right arm/shoulder and left knee pain. Her INR is supratherapeutic at 5.0. Review of Systems Constitutional: DENIES: Fever Endocrine: DENIES: Polyuria Eyes: COMPLAINS OF: Vision loss (baseline) Ears, nose, mouth, throat: DENIES: Throat pain Respiratory: DENIES: Cough Cardiovascular: DENIES: Chest pain Gastrointestinal: DENIES: Abdominal pain Genitourinary: DENIES: Urinary incontinence Musculoskeletal: COMPLAINS OF: Joint pain, Joint Swelling Integumentary: COMPLAINS OF: Abnormal pigmentation (Scleroderma), DENIES: Rash Hematologic/lymphatic: COMPLAINS OF: Bruising Immunologic/allergic: DENIES: Eczema Neurologic: DENIES: Abnormal gait Psychiatric: DENIES: Anxiety Past Family Social History Past Medical History Scleroderma Antiphospholipid syndrome anticoagulated on Coumadin History of DVT/PE Past Surgical History Left knee meniscectomy I&D left leg 2 Reported Medications Coumadin, prednisone, please see chart for full list Allergies: Coded Allergies: Sulfa (Sulfonamide Antibiotics) (Verified Allergy, Intermediate, 04/29/17) penicillin G (Verified Allergy, Intermediate, 04/29/17) Active Ordered Medications Current Medications Medications (Trade) Dose Ordered Sig/Wilfrid Route Start Time Stop Time Status Last Admin Sodium Chloride 1,000 ml @ 100 mls/hr Q10H IV 04/29/17 03:00 04/29/17 03:00 (NS Flush) 2 ml UNSCH PRN IV FLUSH 04/29/17 03:00 (NS Flush) 2 ml BID IV FLUSH 04/29/17 09:00 04/29/17 09:07 (Tylenol) 650 mg Q4H PRN PO 04/29/17 03:00 (Zofran Inj) 4 mg Q6H PRN IVP 04/29/17 03:00 (Narcan Inj) 0.4 mg UNSCH PRN IV PUSH 04/29/17 03:00 (Dilaudid Pf Inj) 1 mg Q4H PRN IV 04/29/17 03:15 04/29/17 07:57 (Lexapro) 20 mg DAILY PO 04/29/17 09:00 04/29/17 09:05 (Lasix) 20 mg BID PO 04/29/17 09:00 04/29/17 09:05 (Neurontin) 100 mg BID PO 04/29/17 09:00 04/29/17 08:00 (Plaquenil) 200 mg BID PO 04/29/17 09:00 04/29/17 09:05 (Procardia Xl) 60 mg DAILY PO 04/29/17 09:00 04/29/17 09:05 (Protonix) 40 mg DAILY PO 04/29/17 09:00 04/29/17 08:01 (Minipress) 5 mg BID PO 04/29/17 09:00 04/29/17 09:06 (Deltasone) 5 mg DAILY PO 04/29/17 09:00 04/29/17 08:00 (Revatio) 20 mg TID PO 04/29/17 09:00 04/29/17 09:05 (Pravachol) 40 mg DAILY PO 04/29/17 09:00 04/29/17 08:00 Reported Meds & Active Scripts Active Reported Minipress (Prazosin HCl) 5 Mg Cap 5 Mg PO BID Gabapentin 100 Mg Cap 100 Mg PO BID Prednisone 5 Mg Tab 5 Mg PO DAILY Sildenafil 20 Mg Tab 20 Mg PO TID Furosemide 20 Mg Tab 20 Mg PO BID Plaquenil (Hydroxychloroquine Sulfate) 200 Mg Tab 200 Mg PO BID Take with food Lexapro (Escitalopram Oxalate) 20 Mg Tab 20 Mg PO DAILY Pantoprazole (Pantoprazole Sodium) 40 Mg Tab 40 Mg PO DAILY Simvastatin 20 Mg Tab 20 Mg PO DAILY Warfarin 5 Mg Tab 5 Mg PO DAILY Nifedipine ER 24 HR (Nifedipine) 60 Mg Tab 60 Mg PO DAILY Warfarin 10 Mg Tab 10 Mg PO DAILY Flexeril (Cyclobenzaprine HCl) 10 Mg Tab 10 Mg PO HS Aspirin Children's (Aspirin) 81 Mg Chew 81 Mg CHEW DAILY Family History Father with diabetes mellitus Social History Occasional alcohol. Denies tobacco and illicit drugs. Physical Exam Vital Signs Vital Signs Date Time Temp Pulse Resp B/P (MAP) Pulse Ox O2 Delivery O2 Flow Rate FiO2 04/29/17 09:00 84 18 134/70 (91) 96 Room Air 04/29/17 08:25 18 04/29/17 04:58 20 04/29/17 04:54 91 20 139/62 (87) 98 Nasal Cannula 2.00 04/29/17 03:22 90 20 140/63 (88) 99 Room Air 04/29/17 03:00 98 2.00 04/29/17 01:28 87 20 133/62 (85) 96 Nasal Cannula 2.00 04/29/17 00:35 98 04/29/17 00:27 97.9 83 24 141/77 (98) 94 04/29/17 00:20 98 3.00 04/29/17 00:20 98 Nasal Cannula 3.00 Physical Exam Awake, alert, no acute distress. Morbid obesity Normocephalic. Ecchymosis about right eye No JVD Moist mucous membranes Nonlabored respirations Regular rate Soft nontender abdomen RUE: Tenderness to palpation about right shoulder. Unable to assess range of motion at shoulder due to pain. Patient appears neurovascular intact distally. Sensation intact. Radial pulses palpable. LUE: No tenderness palpation or visible deformities. No significant ecchymosis. Patient allows full passive range of motion throughout. Patient appears neurovascular intact distally. Sensation intact. Radial pulse palpable LLE: Significant swelling, ecchymosis and tenderness to palpation about the left knee. Unable to assess range of motion due to pain and swelling. Patient has negative logroll. Patient images positive EHL, FHL, dorsiflexion and plantarflexion. Sensation intact. Brisk cap refill. Patient does have scleroderma lesions about lower leg. RLE: No appreciable swelling, tenderness or deformities. Patient allows full passive range of motion throughout. Patient appears neurovascular intact distally. Sensation intact. Scleroderma lesions noted about lower leg. Brisk cap refill No rash. Multiple scleroderma lesions about extremities. Normal affect Laboratory Laboratory Tests Test 04/29/17 00:20 White Blood Count 8.9 Red Blood Count 3.72 Hemoglobin 10.1 Bedside Hemoglobin 10.9 Hematocrit 31.6 Bedside Hematocrit 32.0 Mean Corpuscular Volume 84.9 Mean Corpuscular Hemoglobin 27.0 Mean Corpuscular Hemoglobin Concent 31.8 Red Cell Distribution Width 18.7 Platelet Count 406 Mean Platelet Volume 7.2 Neutrophils (%) (Auto) 78.4 Lymphocytes (%) (Auto) 10.5 Monocytes (%) (Auto) 9.9 Eosinophils (%) (Auto) 0.4 Basophils (%) (Auto) 0.8 Neutrophils # (Auto) 7.0 Lymphocytes # (Auto) 0.9 Monocytes # (Auto) 0.9 Eosinophils # (Auto) 0.0 Basophils # (Auto) 0.1 CBC Comment DIFF FINAL Differential Comment Prothrombin Time 50.2 Prothromb Time International Ratio 5.0 Activated Partial Thromboplast Time 45.5 Fibrinogen 347 Bedside Sodium 140 Bedside Potassium 4.1 Bedside Chloride 102 Bedside Blood Urea Nitrogen 11 Bedside Creatinine 0.8 Bedside Glucose 102 Human Chorionic Gonadotropin, Quant LESS THAN 1 Ethyl Alcohol Level LESS THAN 3 Result Diagram: 04/29/17 0020 Imaging Last 24 hours Impressions Multiplanar Reconstruction 04/29/17 0800 Signed Impressions: Service Date/Time: Saturday, April 29, 2017 08:24 - CONCLUSION: 3-D reconstructions again demonstrate the comminuted displaced right proximal humerus fracture. Please refer to right shoulder CT examination for further details. Eleazar Triplett MD Pelvis X-Ray 04/29/1715 Signed Impressions: Service Date/Time: Saturday, April 29, 2017 00:21 - CONCLUSION: 1. No acute fracture or dislocation. Adan Shrestha MD Maxillofacial CT 04/29/1715 Signed Impressions: Service Date/Time: Saturday, April 29, 2017 00:59 - CONCLUSION: 1. No acute facial fracture. Adan Shrestha MD Knee X-Ray 04/29/1715 Signed Impressions: Service Date/Time: Saturday, April 29, 2017 00:21 - CONCLUSION: 1. No acute fracture or dislocation. Adan Shrestha MD Humerus X-Ray 04/29/1715 Signed Impressions: Service Date/Time: Saturday, April 29, 2017 00:21 - CONCLUSION: 1. Redemonstration of impacted slightly comminuted fracture of the humeral head with interval reduction of the distal fragment. Adan Shrestha MD ADDENDUM: There is a large fragment of the humeral head that remains inferiorly displaced. Adan Shrestha MD Head CT 04/29/1715 Signed Impressions: Service Date/Time: Saturday, April 29, 2017 00:59 - CONCLUSION: 1. No acute intracranial abnormality. Adan Shrestha MD Chest X-Ray 04/29/1715 Signed Impressions: Service Date/Time: Saturday, April 29, 2017 00:21 - CONCLUSION: 1. Comminuted fracture of the right humeral head. 2. Otherwise, negative portable chest status post trauma. Adan Shrestha MD Chest CT 04/29/1715 Signed Impressions: Service Date/Time: Saturday, April 29, 2017 00:59 - CONCLUSION: 1. Comminuted impacted fracture of the right humeral head with displacement of large humeral head fragment anteriorly and inferiorly with respect to the glenoid fossa. 2. Mild diffuse ground glass opacities in the lower lobes, likely atelectasis although pulmonary contusions cannot be entirely excluded. 3. Mildly dilated fluid filled esophagus. Adan Shrestha MD Cervical Spine CT 04/29/1715 Signed Impressions: Service Date/Time: Saturday, April 29, 2017 00:59 - CONCLUSION: 1. No acute fracture or subluxation. Adan Shrestha MD Abdomen/Pelvis CT 04/29/176 Signed Impressions: Service Date/Time: Saturday, April 29, 2017 00:59 - CONCLUSION: 1. No CT evidence for acute traumatic injury in the abdomen or pelvis. 2. 8mm nonobstructing calcified calyceal calculus in the inferior pole of the right kidney. Adan Shrestha MD Upper Extremity CT 04/29/17 0000 Signed Impressions: Service Date/Time: Saturday, April 29, 2017 08:24 - CONCLUSION: Comminuted and displaced fracture through the right proximal humeral surgical neck with displaced and dislocated humeral head fragment which is displaced medially and the greater tuberosity and lateral aspect of the humeral head displaced laterally. Eleazar Triplett MD Humerus X-Ray 04/29/17 0000 Signed Impressions: Service Date/Time: Saturday, April 29, 2017 00:21 - CONCLUSION: 1. Partially imaged comminuted fracture the right humeral head. Adan Shrestha MD Assessment & Plan Assessment and Plan 47-year-old female with multiple medical problems and morbid obesity with a four -part dislocated proximal humerus fracture, and left knee hemarthrosis. Options of management were discussed with the patient. She does have a significantly comminuted and dislocated proximal humerus fracture. Surgical intervention is recommended to provide the most functional use of her shoulder. I did explain to the patient that internal fixation of these fractures are often unsuccessful and therefore I have recommend a reverse total shoulder arthroplasty. I explained to the patient that my partner, Dr. Hernandez would be the one to perform this procedure. Risks of surgery including but not limited to: Infection, hardware malposition or failure, limited shoulder range of motion /function, persistent shoulder pain, neurovascular injury, possible need for further surgery, and other unforeseen complications were all discussed with the patient. Of note, patient does have antiphospholipid syndrome and is at high risk for DVT and PEs. She is on Coumadin for this however her INR is currently 5.0. I will ask medicine evaluate the patient and may require hematology assistance in terms of the best way to decrease her INR safely in preparation for surgery. Patient will likely require vitamin K and possibly FFP and platelets. Will make patient nothing by mouth at midnight. I discussed with the patient that she does appear to have a significant left knee hemarthrosis. With an INR greater than 5 at this point, I would not recommend aspiration as I do believe this would just recur immediately. Patient does not allow full exam of the knee but radiographs appeared to be negative for fracture. Angeline Ca MD Apr 29, 2017 11:03
[2017-04-29 11:57] LABS: INTERNATIONAL NORMALIZED RATIO 4.6 RATIO; PROTHROMBIN TIME - PATIENT 46.2 SEC (9.8-11.6)
[2017-04-29] MEDS ORDERED: PHYTONADIONE INJ 10 MG in SODIUM CHLORIDE 0.9% INJ 50 ML IV STA (18:33)
--- NOTE | 2017-04-29 19:54 | MB ---
cc: Haydee Davis MD DATE OF CONSULT: 04/29/2017 CHIEF COMPLAINT: 1. Antiphospholipid antibody syndrome. 2. History of venous thromboembolism. 3. Chronic anticoagulation with warfarin therapy. Goal INR 3-4. 4. Fall, with shoulder injury and knee hemarthrosis HISTORY OF PRESENT ILLNESS: Ms. De Los Santos is a 47 year-old lady with a history of scleroderma, antiphospholipid antibody syndrome, history of venous thromboembolism, chronic anticoagulation with warfarin therapy, who presented to the emergency room this morning after a fall at home. She is originally from [place] and she is visiting with friends in [place], [place]. She was due to fly back today; however, she tripped over a rug in the kitchen and fell into a wall. In the fall, she injured her right eye, her right shoulder and her left knee. She has significant pain in her right shoulder and her left knee. CT scan showed comminuted and displaced fracture through the right proximal humeral surgical neck, with displaced and dislocated humeral head fragment, which is displaced medially, and the greater tuberosity and lateral aspect of the humeral head displaced laterally. Max/face CT with no acute facial fracture. Head CT with no acute intracranial abnormality. Chest CT with evidence of impacted fracture of the right humeral head, with displacement of large humeral head fragment anteriorly and inferiorly with respect to the glenoid fossa, mild diffuse ground glass opacities in the right lower lobe, likely atelectasis, although pulmonary contusions cannot be entirely excluded, mildly dilated fluid-filled esophagus. CT scan of the cervical spine with no acute fracture or subluxation. CT scan of the abdomen and pelvis with no CT evidence for acute traumatic injury in the abdomen or pelvis, 8 mm nonobstructing calcified calculus in the inferior pole of the right kidney. Laboratory studies on admission with white blood cell count 8.9, hemoglobin 10.1, platelet count of 406,000, with a normal differential. INR of 5. When she presented early this morning and then on recheck at 11 a.m., was down to 4.7. Fibrinogen is 347. The patient reports that her clotting history began in 2011 when she had bilateral lower extremity DVT, as well as diffuse pulmonary embolism. She was started on warfarin therapy at that time. In June 2015, she reports that she developed a blood clot in her eye while her INR was supratherapeutic at 4.7. At that time, she reports that she was diagnosed with antiphospholipid antibody syndrome. She also has a history of scleroderma. She follows with her care connector, Dr. Shetty, contact #[phone]. Her primary doctor is Dr. Lindsey at [phone]. While here, she has been consulted on by the orthopedic service. Surgical intervention is required to provide the most functional use of her shoulder in the future. They have recommended reverse total shoulder arthroplasty. She reports significant pain in her shoulder and knee from the fall. She has anxiety related to anticoagulation reversal. PMHX 1. Reynaud's phenomenon 2. Scleroderma 3. Chronic anticoagualation 4. Recurrent GIB, requiring chronic blood transfusion and iron infusion FAMILY HISTORY: No family history of VTE, rhematologic disease SOCIAL HISTORY: denies, tobacco, alcohol, illegal drug use Allergies: Sulfa PHYSICAL EXAM GEN: overweight lady in mild distress due to pain HEENT: bruising present around right eye CV: RRR with no murmurs Resp: clear to auscultation bilaterally Abdomen: protuberent, soft, nontender, bowel sounds present Ext: Left lower extremity brusing on knee MSK: right arm in sling Neuro: cranial nerves intact ASSESSMENT AND PLAN: 1. Right shoulder fracture, requiring surgery tomorrow. In order for the surgery to be performed by the orthopedic service, she will need to have reversal of INR. Discussed with patient and her mother via the telephone that this, indeed, a very difficult clinical situation, where she is at high risk for clots given past history of VTE, history of antiphospholipid antibody syndrome and known active rheumatologic disease. Discussed that in order for her in the future to have functional use of her shoulder that this surgery is medically necessary. We will proceed with reversal of her INR with IV vitamin K. She amenable to proceeding with INR reversal and surgery. Would expect the IV vitamin K to reverse her INR. If her INR is still elevated on recheck tomorrow morning, we will consider prothrombin complex concentrate versus fresh frozen plasma, although this may predispose her to clot. We will be aggressive with deep venous thrombosis prophylaxis after the surgery given extensive clotting history. 2. Anticoagulation with warfarin. Goal INR, per patient, between 2.5 to 3.5 3. History of antiphospholipid antibody syndrome, on chronic anticoagulation. We will need to be aggressive with postoperative deep venous thrombosis prophylaxis post procedure. Hematology service will continue to follow. MD VILLA Fontana/SA/ , 06:51 PM , 07:32 PM LOREN
[2017-04-29] MEDS ORDERED: METOPROLOL TARTRATE 25 MG TAB PO PRN (20:45)
[2017-04-29] MEDS ORDERED: SODIUM CHLORID 0.9% 500 ML IV PRN (20:45)
[2017-04-29] MEDS ORDERED: LACTATED RINGER'S 1000 ML IV PRN (20:45)
[2017-04-29] MEDS ORDERED: CHLORHEXIDINE GLUCONATE 2 % 1 PACK (2 CLOTHS) TOPICAL PRN (20:45)
[2017-04-29] MEDS ORDERED: POVIDONE IODINE 5% (ANTISEPSIS KIT) 4 APPLICATIONS EACH NARE PRN (20:45)
[2017-04-30] VITALS: BP 101/46; PULSE 93; RESP 19; TEMP 100.1; O2SAT 94
[2017-04-30] MEDS: CLINDAMYCIN 900 MG/DEX PREMIX 50 ML IV SCH (00:15)
[2017-04-30 04:00] VITALS: BP 97/48; PULSE 87; RESP 21; TEMP 99.8; O2SAT 92
[2017-04-30 07:14] LABS: AUTOMATED NEUTROPHIL # 7.5 TH/MM3 (1.8-7.7); BASOPHIL % 0.4 % (0.0-2.0); EOSINOPHIL # 0.1 TH/MM3 (0-0.4); EOSINOPHIL % 0.6 % (0.0-4.0); HEMATOCRIT 25.6 % (35.0-46.0); HEMOGLOBIN 8.3 GM/DL (11.6-15.3); INTERNATIONAL NORMALIZED RATIO 1.5 RATIO; LYMPH % 6.2 % (9.0-44.0); LYMPHOCYTE # 0.6 TH/MM3 (1.0-4.8); MEAN CELL VOLUME 85.7 FL (80.0-100.0); MEAN CORPUSCULAR HEMOGLOBIN 27.8 PG (27.0-34.0); MEAN CORPUSCULAR HGB CONC 32.4 % (32.0-36.0); MEAN PLATELET VOLUME 7.3 FL (7.0-11.0); MONO % 13.5 % (0.0-8.0); MONOCYTE # 1.3 TH/MM3 (0-0.9); NEUT % 79.3 % (16.0-70.0); PLATELET COUNT 296 TH/MM3 (150-450); PROTHROMBIN TIME - PATIENT 14.7 SEC (9.8-11.6); RED BLOOD COUNT 2.98 MIL/MM3 (4.00-5.30); RED CELL DISTRIBUTION WIDTH 18.4 % (11.6-17.2); WHITE BLOOD COUNT 9.4 TH/MM3 (4.0-11.0)
[2017-04-30 07:33] LABS: BICARBONATE 29.8 MEQ/L (21.0-32.0); CALCIUM 8.2 MG/DL (8.5-10.1); CREATININE 0.55 MG/DL (0.50-1.00)
[2017-04-30 07:52] VITALS: BP 94/46; PULSE 86; RESP 18; TEMP 99.7; O2SAT 93
[2017-04-30 08:00] VITALS: PULSE 92
[2017-04-30 08:24] VITALS: BP 108/62
[2017-04-30] MEDS: HYDROXYCHLOROQUINE SULFATE 200 MG TAB PO SCH ×2 (08:29→22:48)
[2017-04-30] MEDS: HYDROmorphone HCL PF 2 MG/ML VIAL IV PRN ×2 (08:29→12:28)
[2017-04-30] MEDS: GABAPENTIN 100 MG CAP PO SCH ×2 (08:29→22:49)
[2017-04-30] MEDS: predniSONE 5 MG TAB PO SCH (08:29)
[2017-04-30] MEDS: PRAVASTATIN SOD 40 MG TAB PO SCH (08:29)
[2017-04-30] MEDS: FUROSEMIDE 20 MG TAB PO SCH ×2 (08:29→22:50)
[2017-04-30] MEDS: ESCITALOPRAM OXALATE 20 MG TAB PO SCH (08:29)
[2017-04-30] MEDS: PANTOPRAZOLE SOD 40 MG DELAYED RELEASE TAB PO SCH (08:29)
[2017-04-30] MEDS: SILDENAFIL CITRATE 20 MG TAB PO SCH ×3 (08:29→22:48)
[2017-04-30] MEDS: SODIUM CHLOR 0.9% 1000 ML INJ 1,000 ML IV SCH (08:30)
[2017-04-30] MEDS: NIFEdipine 60 MG SUSTAINED RELEASE TAB PO SCH (08:30)
[2017-04-30] MEDS: SODIUM CHLORIDE 0.9% FLUSH 10 ML FLUSH IV FLUSH SCH ×2 (08:30→22:50)
[2017-04-30] MEDS: PRAZOSIN HCL 5 MG CAP PO SCH ×2 (08:41→22:48)
--- NOTE | 2017-04-30 10:07 | HHI.PR ---
Subjective Remarks The patient was on the phone. She was concerned about having surgery. She was concerned about being off of her anticoagulation. She said she did have a blood clot with an INR over 4.5 in the past. She had questions about surgery. Discussed with nursing at the bedside. Objective Vitals Vital Signs Date Time Temp Pulse Resp B/P (MAP) Pulse Ox O2 Delivery O2 Flow Rate FiO2 04/30/17 08:24 108/62 (77) 04/30/17 07:52 99.7 86 18 94/46 (62) 93 04/30/17 04:00 99.8 87 21 97/48 (64) 92 04/30/17 00:00 100.1 93 19 101/46 (64) 94 04/29/17 23:15 18 04/29/17 22:28 98 121/72 (88) 04/29/17 20:00 99.7 88 16 103/49 (67) 95 04/29/17 16:00 97.9 80 18 127/60 (82) 98 04/29/17 13:45 98.4 90 18 96/43 (60) 93 04/29/17 13:33 88 16 137/86 (103) 95 04/29/17 11:50 90 18 133/60 (84) 95 Room Air 04/29/17 11:50 90 18 133/60 (84) 95 Room Air I/O 04/29/17 04/29/17 04/29/17 04/30/17 04/30/17 04/30/17 07:00 15:00 23:00 07:00 15:00 23:00 Intake Total 240 ml 697 ml 0 ml Output Total 1000 ml Balance -1000 ml 240 ml 697 ml 0 ml Intake Oral 240 ml 0 ml IV Total 697 ml Output Urine Total 1000 ml # Voids 1 3 # Bowel Movements 0 Result Diagram: 04/30/17 0612 04/30/17 0612 Imaging Last Impressions Multiplanar Reconstruction 04/29/17 0800 Signed Impressions: Service Date/Time: Saturday, April 29, 2017 08:24 - CONCLUSION: 3-D reconstructions again demonstrate the comminuted displaced right proximal humerus fracture. Please refer to right shoulder CT examination for further details. Eleazar Triplett MD Pelvis X-Ray 04/29/17 0016 Signed Impressions: Service Date/Time: Saturday, April 29, 2017 00:21 - CONCLUSION: 1. No acute fracture or dislocation. Adan Shrestha MD Maxillofacial CT 04/29/1715 Signed Impressions: Service Date/Time: Saturday, April 29, 2017 00:59 - CONCLUSION: 1. No acute facial fracture. Adan Shrestha MD Knee X-Ray 04/29/1715 Signed Impressions: Service Date/Time: Saturday, April 29, 2017 00:21 - CONCLUSION: 1. No acute fracture or dislocation. Adan Shrestha MD Humerus X-Ray 04/29/1715 Signed Impressions: Service Date/Time: Saturday, April 29, 2017 00:21 - CONCLUSION: 1. Redemonstration of impacted slightly comminuted fracture of the humeral head with interval reduction of the distal fragment. Adan Shrestha MD ADDENDUM: There is a large fragment of the humeral head that remains inferiorly displaced. Adan Shrestha MD Head CT 04/29/1715 Signed Impressions: Service Date/Time: Saturday, April 29, 2017 00:59 - CONCLUSION: 1. No acute intracranial abnormality. Adan Shrestha MD Chest X-Ray 04/29/1715 Signed Impressions: Service Date/Time: Saturday, April 29, 2017 00:21 - CONCLUSION: 1. Comminuted fracture of the right humeral head. 2. Otherwise, negative portable chest status post trauma. Adan Shrestha MD Chest CT 04/29/176 Signed Impressions: Service Date/Time: Saturday, April 29, 2017 00:59 - CONCLUSION: 1. Comminuted impacted fracture of the right humeral head with displacement of large humeral head fragment anteriorly and inferiorly with respect to the glenoid fossa. 2. Mild diffuse ground glass opacities in the lower lobes, likely atelectasis although pulmonary contusions cannot be entirely excluded. 3. Mildly dilated fluid filled esophagus. Adan Shrestha MD Cervical Spine CT 04/29/176 Signed Impressions: Service Date/Time: Saturday, April 29, 2017 00:59 - CONCLUSION: 1. No acute fracture or subluxation. Adan Shrestha MD Abdomen/Pelvis CT 04/29/17 0016 Signed Impressions: Service Date/Time: Saturday, April 29, 2017 00:59 - CONCLUSION: 1. No CT evidence for acute traumatic injury in the abdomen or pelvis. 2. 8mm nonobstructing calcified calyceal calculus in the inferior pole of the right kidney. Adan Shrestha MD Upper Extremity CT 04/29/17 0000 Signed Impressions: Service Date/Time: Saturday, April 29, 2017 08:24 - CONCLUSION: Comminuted and displaced fracture through the right proximal humeral surgical neck with displaced and dislocated humeral head fragment which is displaced medially and the greater tuberosity and lateral aspect of the humeral head displaced laterally. Eleazar Triplett MD Objective Remarks GENERAL: Resting in bed. SKIN: Ecchymoses surrounding right eye and swelling/ecchymoses over left knee. HEAD: Normocephalic. No temporal or scalp tenderness. EYES: Pupils equal round and reactive. Extraocular motions intact. No scleral icterus. No injection or drainage. ENT: Nose without bleeding, purulent drainage or septal hematoma. Throat without erythema, tonsillar hypertrophy or exudate. Uvula midline. Airway patent. NECK: Trachea midline. No JVD or lymphadenopathy. Supple, nontender, no meningeal signs. CARDIOVASCULAR: Regular rate and rhythm. 3/6 CORNELIUS. RESPIRATORY: Clear to auscultation. Breath sounds equal bilaterally. No wheezes , rales, or rhonchi. GASTROINTESTINAL: Abdomen soft, non-tender, nondistended. No hepato-splenomegaly , or palpable masses. No guarding. MUSCULOSKELETAL: Right arm in sling. Neurovascularly intact. NEUROLOGICAL: Awake and alert. Cranial nerves II through XII intact. Motor and sensory grossly within normal limits. Normal speech. PSYCH: Mood and affect appropriate. Medications and IVs Current Medications Medications (Trade) Dose Ordered Sig/Wilfrid Route Start Time Stop Time Status Last Admin Sodium Chloride 1,000 ml @ 100 mls/hr Q10H IV 04/29/17 03:00 04/29/17 13:00 (NS Flush) 2 ml UNSCH PRN IV FLUSH 04/29/17 03:00 (NS Flush) 2 ml BID IV FLUSH 04/29/17 09:00 04/29/17 22:32 (Tylenol) 650 mg Q4H PRN PO 04/29/17 03:00 04/30/17 08:31 (Zofran Inj) 4 mg Q6H PRN IVP 04/29/17 03:00 (Narcan Inj) 0.4 mg UNSCH PRN IV PUSH 04/29/17 03:00 (Dilaudid Pf Inj) 1 mg Q4H PRN IV 04/29/17 03:15 04/30/17 08:29 (Lexapro) 20 mg DAILY PO 04/29/17 09:00 04/30/17 08:29 (Lasix) 20 mg BID PO 04/29/17 09:00 04/30/17 08:29 (Neurontin) 100 mg BID PO 04/29/17 09:00 04/30/17 08:29 (Plaquenil) 200 mg BID PO 04/29/17 09:00 04/30/17 08:29 (Procardia Xl) 60 mg DAILY PO 04/29/17 09:00 04/30/17 08:30 (Protonix) 40 mg DAILY PO 04/29/17 09:00 04/30/17 08:29 (Minipress) 5 mg BID PO 04/29/17 09:00 04/29/17 22:38 (Deltasone) 5 mg DAILY PO 04/29/17 09:00 04/30/17 08:29 (Revatio) 20 mg TID PO 04/29/17 09:00 04/30/17 08:29 (Pravachol) 40 mg DAILY PO 04/29/17 09:00 04/30/17 08:29 Lactated Ringer's 1,000 ml @ 30 mls/hr Q24H PRN IV 04/29/17 20:45 05/02/17 20:44 Sodium Chloride 500 ml @ 30 mls/hr [id number] PRN IV 04/29/17 20:45 05/02/17 20:44 (Lopressor) 25 mg CASH MANAGEMENT OFFICER PRN PO 04/29/17 20:45 05/02/17 20:44 (Betadine 5% Antisepsis Kit) 1 applic CASH MANAGEMENT OFFICER PRN EACH NARE 04/29/17 20:45 05/02/17 20:44 (Chlorhexidine 2% Cloth) 3 pack CASH MANAGEMENT OFFICER PRN TOPICAL 04/29/17 20:45 05/02/17 20:44 A/P Assessment and Plan Humeral head fracture S/p mechanical fall. Upper extremity CT: Comminuted and displaced fracture through the right proximal humeral surgical neck with displaced and dislocated humeral head fragment which is displaced medially and the greater tuberosity and lateral aspect of the humeral head displaced laterally. Orthopedic surgery consulted, appreciate recommendations. - Nothing by mouth for surgery today. - pain control with a bowel regimen. - weightbearing and wound care per ortho. Antiphospholipid syndrome/history of DVT/PE Anticoagulated on Coumadin with goal INR of 3.5-4.5 per patient. Hematology consult appreciated. S/p IV vitamin K. - anticoagulation following surgery per ortho and hematology. - follow INR. Anemia The pt had an elevated INR on presentation. - follow CBC and transfuse as needed. Left knee hematoma Imaging negative for an acute process. - supportive care. - PT. Scleroderma Currently stable. - continue home regimen. PPx: Holding anticoagulation in anticipation of operative intervention Satya Mercer DO Apr 30, 2017 10:06
--- NOTE | 2017-04-30 11:46 | PD.ONC.PN ---
Subjective Subjective Remarks Resting in bed in mild distress due to pain in her left knee and right shoulder. INR has fallen to 1.5 today. Objective Data Date Time Temp Pulse Resp B/P (MAP) Pulse Ox O2 Delivery O2 Flow Rate FiO2 04/30/17 08:24 108/62 (77) 04/30/17 07:52 99.7 86 18 94/46 (62) 93 04/30/17 04:00 99.8 87 21 97/48 (64) 92 04/30/17 00:00 100.1 93 19 101/46 (64) 94 04/29/17 23:15 18 04/29/17 22:28 98 121/72 (88) 04/29/17 20:00 99.7 88 16 103/49 (67) 95 04/29/17 16:00 97.9 80 18 127/60 (82) 98 04/29/17 13:45 98.4 90 18 96/43 (60) 93 04/29/17 13:33 88 16 137/86 (103) 95 04/29/17 11:50 90 18 133/60 (84) 95 Room Air 04/29/17 11:50 90 18 133/60 (84) 95 Room Air 04/30/17 04/30/17 04/30/17 07:00 15:00 23:00 Intake Total 0 ml 0 ml Balance 0 ml 0 ml Result Diagram: 04/30/1712 04/30/17 06 Laboratory Results Laboratory Tests Test 04/30/17 06:12 White Blood Count 9.4 TH/MM3 Red Blood Count 2.98 MIL/MM3 Hemoglobin 8.3 GM/DL Hematocrit 25.6 % Mean Corpuscular Volume 85.7 FL Mean Corpuscular Hemoglobin 27.8 PG Mean Corpuscular Hemoglobin Concent 32.4 % Red Cell Distribution Width 18.4 % Platelet Count 296 TH/MM3 Mean Platelet Volume 7.3 FL Neutrophils (%) (Auto) 79.3 % Lymphocytes (%) (Auto) 6.2 % Monocytes (%) (Auto) 13.5 % Eosinophils (%) (Auto) 0.6 % Basophils (%) (Auto) 0.4 % Neutrophils # (Auto) 7.5 TH/MM3 Lymphocytes # (Auto) 0.6 TH/MM3 Monocytes # (Auto) 1.3 TH/MM3 Eosinophils # (Auto) 0.1 TH/MM3 Basophils # (Auto) 0.0 TH/MM3 CBC Comment DIFF FINAL Differential Comment Prothrombin Time 14.7 SEC Prothromb Time International Ratio 1.5 RATIO Blood Urea Nitrogen 6 MG/DL Creatinine 0.55 MG/DL Random Glucose 110 MG/DL Calcium Level 8.2 MG/DL Sodium Level 138 MEQ/L Potassium Level 3.6 MEQ/L Chloride Level 104 MEQ/L Carbon Dioxide Level 29.8 MEQ/L Anion Gap 4 MEQ/L Estimat Glomerular Filtration Rate 117 ML/MIN Administered Medications Medications (Trade) Dose Ordered Sig/Wilfrid Route PRN Reason Start Time Stop Time Status Last Admin Dose Admin Sodium Chloride 1,000 ml @ 100 mls/hr Q10H IV 04/29/17 03:00 04/29/17 13:00 Sodium Chloride (NS Flush) 2 ml BID IV FLUSH 04/29/17 09:00 04/29/17 22:32 Acetaminophen (Tylenol) 650 mg Q4H PRN PO TEMP > 100.4 04/29/17 03:00 04/30/17 08:31 Hydromorphone HCl (Dilaudid Pf Inj) 1 mg Q4H PRN IV PAIN > 5 04/29/17 03:15 04/30/17 08:29 Escitalopram Oxalate (Lexapro) 20 mg DAILY PO 04/29/17 09:00 04/30/17 08:29 Furosemide (Lasix) 20 mg BID PO 04/29/17 09:00 04/30/17 08:29 Gabapentin (Neurontin) 100 mg BID PO 04/29/17 09:00 04/30/17 08:29 Hydroxychloroquine Sulfate (Plaquenil) 200 mg BID PO 04/29/17 09:00 04/30/17 08:29 Nifedipine (Procardia Xl) 60 mg DAILY PO 04/29/17 09:00 04/30/17 08:30 Pantoprazole Sodium (Protonix) 40 mg DAILY PO 04/29/17 09:00 04/30/17 08:29 Prazosin HCl (Minipress) 5 mg BID PO 04/29/17 09:00 04/29/17 22:38 Prednisone (Deltasone) 5 mg DAILY PO 04/29/17 09:00 04/30/17 08:29 Sildenafil Citrate (Revatio) 20 mg TID PO 04/29/17 09:00 04/30/17 08:29 Pravastatin Sodium (Pravachol) 40 mg DAILY PO 04/29/17 09:00 04/30/17 08:29 Objective Remarks GENERAL: overweight lady in mild distress secondary to pain SKIN: Warm and dry. HEAD: Normocephalic. EYES: brusing present around right eye NECK: Supple, trachea midline. No JVD or lymphadenopathy. LYMPHATIC: No adenopathy. CARDIOVASCULAR: Regular rate and rhythm without murmurs. RESPIRATORY: Breath sounds equal bilaterally. No accessory muscle use. GASTROINTESTINAL: Abdomen soft, non-tender, nondistended. EXTREMITIES: left knee with bruising, right arm in sling MUSCULOSKELETAL: Adequate muscle tone. NEUROLOGICAL: No obvious focal deficit. Awake, alert, and oriented x3. PSYCHIATRIC: Appropriate mood and affect; insight and judgment normal. Assessment/Plan Assessment 1. s/p fall at home with fracture of shoulder: orthopedic service plans for repair today. INR of 1.5, able to move forward with surgery. 2. History of VTE, on chronic anticoagulation with warfarin. Spoke with her primary chef broiler or fry Dr. Shetty. Dr. Shetty reports that Ms. De Los Santos is kept therapeutic with a goal INR of 2.5 to 3.5. She reports that patient has had multiple hospitalizations for bleeding. She has a history of chronic GIB while on anticoagulation requiring chronic transfusions and intravenous iron therapy. She was most recently hospitalized earlier this month for GIB and required transfusion of 3 units of PRBC. She also has an extensive history of VTE. This is a difficult clinical situation in this patient with a strong history of VTE, active rheumatologic disease, and chronic anticoagulation. In order for her have functional use of her arm orthopedic service is recommending surgical repair which requires normal INR. INR has been reversed with vitamin K. After surgery will be aggressive with resuming anticoagulation. this was discussed with patient who is in agreement. Haydee Davis MD Apr 30, 2017 11:46
[2017-04-30 12:00] VITALS: BP 120/59; PULSE 85; PULSE 89; RESP 18; TEMP 99.7; O2SAT 93
[2017-04-30] MEDS ORDERED: ROCURONIUM INJ 50 MG/5 ML SYRINGE IV PUSH ONE (12:00)
[2017-04-30] MEDS ORDERED: LACTATED RINGER'S 1000 ML INJ 2,000 ML IV ONE (12:00)
[2017-04-30] MEDS ORDERED: ONDANSETRON HCL 4 MG/2 ML VIAL IV ONE (12:00)
[2017-04-30] MEDS ORDERED: NORMOSOL R INJ 1,000 ML IV ONE (12:00)
[2017-04-30] MEDS ORDERED: PHENYLEPH/NS 1000 MCG/10 ML SYR IV ONE (12:00)
[2017-04-30] MEDS ORDERED: ePHEDrine/NS 25 MG/5 ML SYRINGE IV ONE (12:00)
[2017-04-30] MEDS ORDERED: DEXAMETHASONE SOD PHOS 4 MG/ML VIAL IV ONE (12:00)
[2017-04-30] MEDS ORDERED: PROPOFOL 200 MG/20 ML AMP IV ONE (12:00)
[2017-04-30] MEDS ORDERED: LIDOCAINE HCL 1% PF 5 ML SYRINGE OTHER ONE (12:00)
[2017-04-30] MEDS ORDERED: PHENYLEPHRINE HCL 10 MG/ML VIAL IV ONE (12:00)
[2017-04-30] MEDS ORDERED: VANCOMYCIN HCL 1000 MG VIAL ONE (12:13)
[2017-04-30] MEDS ORDERED: CLINDAMYCIN PHOS 900 MG/6 ML VIAL ONE (14:23)
[2017-04-30] MEDS ORDERED: CLINDAMYCIN PHOS 600 MG/4 ML VIAL ONE (14:23)
[2017-04-30] MEDS ORDERED: HEPARIN SODIUM - SQ 10,000 UNITS/ML VIAL ONE (15:31)
[2017-04-30] MEDS ORDERED: VANCOMYCIN 500 MG VIAL ONE (16:04)
[2017-04-30] MEDS ORDERED: GENTAMICIN SULFATE 80 MG/2 ML VIAL IRRIGATION ONE (16:58)
[2017-04-30] MEDS ORDERED: SUGAMMADEX SODIUM 200 MG/2 ML VIAL IV PUSH ONE (17:00)
[2017-04-30] MEDS ORDERED: ACETAMINOPHEN 1000 MG/100 ML 100 ML IV ONE (17:00)
[2017-04-30] MEDS ORDERED: BUPIVACAINE LIPOSOME PF 1.3% 20 ML VIAL INFIL ONE (17:17)
--- NOTE | 2017-04-30 18:35 | PD.OP ---
Operative Report Preoperative Diagnosis: (1) Closed 4-part fracture of proximal end of right humerus Postoperative Diagnosis: (1) Closed 4-part fracture of proximal end of right humerus Procedure: Right Reverse Total Shoulder Arthroplasty Anesthesia: General Surgeon: Jayme Hernandez MD Construction Services Technician(s): Malcolm LUNDBERG Operation and Findings: see dictation Jayme Hernandez MD Apr 30, 2017 18:35
[2017-04-30] MEDS ORDERED: diphenhydrAMINE HCL 25 MG CAP PO PRN (18:45)
[2017-04-30] MEDS ORDERED: SENNOSIDES 8.6 MG TAB PO PRN (18:45)
[2017-04-30] MEDS ORDERED: ACETAMINOPHEN 325 MG TAB PO PRN (18:45)
[2017-04-30] MEDS ORDERED: BISACODYL 10 MG SUPP RECTAL PRN (18:45)
[2017-04-30] MEDS ORDERED: MISCELLANEOUS PHARMACY INFORMATION XX ONE (18:45)
[2017-04-30] MEDS ORDERED: LACTULOSE SYRUP 20 GM/30 ML CUP PO PRN (18:45)
[2017-04-30] MEDS ORDERED: MISCELLANEOUS NURSING INFORMATION XX PRN (18:45)
[2017-04-30] MEDS ORDERED: ONDANSETRON HCL 4 MG/2 ML VIAL IVP PRN (18:45)
[2017-04-30] MEDS ORDERED: oxyCODONE/ACETAMINOPHEN 5 MG/325 MG TAB PO PRN (18:45)
[2017-04-30] MEDS ORDERED: NALOXONE HCL 0.4 MG/ML AMP IV PUSH PRN (18:45)
[2017-04-30] MEDS ORDERED: Post-op Orders (for Pharmacy) XX ONE (18:45)
[2017-04-30] MEDS ORDERED: WARFARIN SOD 10 MG TAB PO SCH (18:45)
[2017-04-30] MEDS ORDERED: MAGNESIUM HYDROXIDE SUSP 30 ML CUP PO PRN (18:45)
[2017-04-30] MEDS ORDERED: *RESP: ALBUTEROL 2.5 MG/3 ML NEB (PRN) PERIprocedural Use ONLY NEB ONE (19:02)
[2017-04-30] MEDS ORDERED: *MEPERIDINE 25 MG INJ VIAL PERIprocedural Use ONLY ONE (19:02)
[2017-04-30 19:08] LABS: AUTOMATED NEUTROPHIL # 7.4 TH/MM3 (1.8-7.7); BASOPHIL % 0.3 % (0.0-2.0); EOSINOPHIL % 0.5 % (0.0-4.0); HEMATOCRIT 22.9 % (35.0-46.0); HEMOGLOBIN 7.4 GM/DL (11.6-15.3); LYMPH % 8.8 % (9.0-44.0); LYMPHOCYTE # 0.8 TH/MM3 (1.0-4.8); MEAN CELL VOLUME 85.8 FL (80.0-100.0); MEAN CORPUSCULAR HEMOGLOBIN 27.7 PG (27.0-34.0); MEAN CORPUSCULAR HGB CONC 32.3 % (32.0-36.0); MEAN PLATELET VOLUME 7.2 FL (7.0-11.0); MONO % 10.2 % (0.0-8.0); MONOCYTE # 0.9 TH/MM3 (0-0.9); NEUT % 80.2 % (16.0-70.0); PLATELET COUNT 285 TH/MM3 (150-450); RED BLOOD COUNT 2.67 MIL/MM3 (4.00-5.30); WHITE BLOOD COUNT 9.2 TH/MM3 (4.0-11.0)
[2017-04-30] MEDS ORDERED: DO NOT ADM ANY ANTICOAGULANT DRUGS PRN (19:10)
[2017-04-30 19:20] LABS: INTERNATIONAL NORMALIZED RATIO 1.4 RATIO; PROTHROMBIN TIME - PATIENT 14.1 SEC (9.8-11.6)
[2017-04-30] MEDS ORDERED: MIDAZOLAM HCL 2 MG/2 ML VIAL ONE (19:20)
[2017-04-30] MEDS: DEXT 5%-NACL 0.45% 1000 ML INJ 1,000 ML IV SCH (20:00)
[2017-04-30] MEDS: HYDROmorphone HCL PCA 6 MG/30 ML IV SCH (20:12)
--- NOTE | 2017-04-30 20:56 | MP ---
cc: Jayme Hernandez MD DATE OF OPERATION: 04/30/2017 PREOPERATIVE DIAGNOSIS: Right shoulder 4 part fracture dislocation. POSTOPERATIVE DIAGNOSIS: Right shoulder 4 part fracture dislocation. PROCEDURE: Right reverse total shoulder arthroplasty using 10 mm long stem AltiVate prosthesis from [facility] with a 32 -4 glenosphere and a standard baseplate with 4 locking screws. ANESTHESIA: General. SURGEON: Jayme Hernandez MD DRUPAL PROGRAMMER: TAMIKA Miranda ESTIMATED BLOOD LOSS: 500 mL and we used cell saver and retransfused. COMPLICATIONS: None known. INDICATIONS: Rebeka De Los Santos is a 47-year-old female with a clotting disorder which requires her to be on Coumadin, who sustained a trauma to her right shoulder resulting in fracture dislocation of the shoulder. She underwent a reduction maneuver but the humeral head fragment remained displaced out of the joint. The recommendation was reverse total shoulder arthroplasty. The risks, benefits and alternatives to treatment were thoroughly discussed including the possibility of leaving the fracture like it was and going back to her hometown in [place] or one of the [facility] in [place] to address her problem. Because of her clotting disorder, we did obtain a hematology consult. We talked about the risks of nerve damage, blood vessel damage, further fracture dislocation, need for revision surgery, the possibility of bleeding and the need for revision surgery associated with bleeding postoperatively, the possibility of infection, the anesthetic complications, medical complications and unforeseen possible complications. All of her questions were answered. She wished to press on with surgery and detailed informed consent was obtained. She did receive vitamin K and repeat INR did show that she responded to that and her INR level was 1.5 this morning. The anesthesiologist felt most comfortable with a general anesthetic. The patient was brought into the operating room, she was placed under general anesthetic. She was placed in a beachchair position. The right shoulder was prepped and draped in usual sterile fashion. Intravenous antibiotics were given. Time out was completed. It should be noted that the first beater had been advanced registered nurse practitioner and his skill set was medically necessary for the performance of the operation. After the time out was completed, we proceeded with the anterior approach to the shoulder, deltopectoral interval, mobilizing the cephalic vein medially. We palpated the conjoined tendon and then proceeded to palpate the axillary nerve and we did identify the nerve. Right on top of the nerve was the humeral head and we took time to protect the nerve while removing the humeral head fragment and this was eventually brought out and the nerve palpation felt normal. We performed a biceps tenodesis at the level of the pectoralis and then proceeded to place #2 FiberWire sutures in the lesser tuberosity fracture fragment and then lifted this off and thinned the fragment and removed further comminuted fragments of bone from out of the joint. In a similar fashion we placed three #2 FiberWires in the greater tuberosity fracture fragment and then thinned this fragment on the undersurface. We then placed exposures about the glenoid, resected the biceps tendon within the joint, then proceeded with our alignment guide and then sequential reaming. Then we had good bleeding bone. We proceeded with placement of our baseplate and then used our alignment guide and proceeded with our drilling and screw placement. Very good fixation. We proceeded to impact our 32 -4 glenosphere and noted good fixation and placed our locking bolt as well. Attention was then drawn to injecting long acting Marcaine about the shoulder capsule and assessing how we would repair this and we proceeded to sequentially ream and we went up to size 10. A trial reduction with standard polyethylene showed excellent range of motion and stability. This was with the final component. The long revision type AltiVate 10 mm DJO stem was impacted in place with 30 degrees anteversion. We trialed the polyethylene and the standard was appropriate and proceeded to place our standard, reduce the shoulder. Irrigated out with copious amounts of irrigation. We had placed drill holes in the shaft and had already placed a #5 and a #2 FiberWire here and then we proceeded to anatomically align our tuberosities and use the fins in the back of the AltiVate stem to tie this down and then anterior to posterior, lesser to greater tuberosity repair and then finally a cerclage with a #2 FiberWire and then a [id number] with a #5 FiberWire. We put the shoulder through range of motion. Excellent range of motion stability. Again we irrigated out with copious amounts of irrigation. We injected the rest of our long acting Marcaine and then checked the axillary nerve again and then proceeded to close the layers with absorbable suture, subcuticular on the skin, Steri-strips applied. Sterile dressing applied. The patient was awoken and returned to the recovery room in stable condition. MD CORA Winslow/ , 07:40 PM , 08:54 PM
[2017-04-30] MEDS: PCA - TOTAL MG DILAUDID DELIVERED PER SHIFT OTHER SCH (22:00)
--- NOTE | 2017-04-30 22:32 | RADRPT ---
EXAM DATE/TIME: 04/30/2017 18:17 [facility] COMPARISON: No previous studies available for comparison. INDICATIONS : Instrument count. Possible foreign body. MEDICAL HISTORY : None. SURGICAL HISTORY : Rt brianna. ENCOUNTER: Initial ACUITY: 1 day PAIN SCORE: Non-responsive. LOCATION: Right shoulder. FINDINGS: Right shoulder prosthesis is noted. Right internal jugular [id number] has its tip in superior vena cava. Endotracheal tube is noted above the jonathan. No foreign body is identified. CONCLUSION: No foreign body is identified on this limited single view. Heath Armas MD on April 30, 2017 at 22:30 Board Certified Radiologist. This report was verified electronically.
--- NOTE | 2017-04-30 22:35 | RADRPT ---
EXAM DATE/TIME: 04/30/2017 19:40 [facility] COMPARISON: SHOULDER RIGHT (1VW), April 30, 2017, 18:17. INDICATIONS : Post op right shoulder. MEDICAL HISTORY : Arthritis. Gastroesophageal reflux disease. Antiphospholipid syndrome. SURGICAL HISTORY : Right shoulder replacement. ENCOUNTER: Subsequent ACUITY: 1 day PAIN SCORE: Non-responsive. LOCATION: Right shoulder. FINDINGS: Right shoulder replacement is noted. No radiopaque foreign body is noted. CONCLUSION: Right shoulder replacement is noted in good position Heath Armas MD on April 30, 2017 at 22:33 Board Certified Radiologist. This report was verified electronically.
[2017-04-30] MEDS: CYCLOBENZAPRINE HCL 10 MG TAB PO SCH (22:49)
[2017-04-30] MEDS: DOCUSATE SODIUM 50 MG/SENNA 8.6 MG TAB PO SCH (22:50)
[2017-05-01] VITALS (9 sets, daily range): BP systolic 94–123; BP diastolic 48–75; PULSE 66–93; RESP 16–18; TEMP 98.1–99.4; O2SAT 91–97
[2017-05-01] MEDS: oxyCODONE/ACETAMINOPHEN 5 MG/325 MG TAB PO PRN ×2 (04:24→21:02)
[2017-05-01] MEDS: DEXT 5%-NACL 0.45% 1000 ML INJ 1,000 ML IV SCH ×2 (04:37→14:37)
[2017-05-01] MEDS: PCA - TOTAL MG DILAUDID DELIVERED PER SHIFT OTHER SCH ×3 (05:43→22:00)
[2017-05-01] MEDS ORDERED: MORPHINE SULFATE 4 MG/ML INJ IV PUSH ONE (05:45)
[2017-05-01] MEDS: HYDROmorphone HCL PCA 6 MG/30 ML IV SCH ×2 (05:55→17:18)
[2017-05-01 06:47] LABS: INTERNATIONAL NORMALIZED RATIO 1.4 RATIO; PROTHROMBIN TIME - PATIENT 13.9 SEC (9.8-11.6)
[2017-05-01 07:08] LABS: BICARBONATE 26.4 MEQ/L (21.0-32.0); CREATININE 0.51 MG/DL (0.50-1.00); MAGNESIUM 2.1 MG/DL (1.5-2.5)
[2017-05-01 07:12] LABS: HEMATOCRIT 22.8 % (35.0-46.0); HEMOGLOBIN 7.4 GM/DL (11.6-15.3); MEAN CELL VOLUME 86.1 FL (80.0-100.0); MEAN CORPUSCULAR HEMOGLOBIN 27.9 PG (27.0-34.0); MEAN CORPUSCULAR HGB CONC 32.3 % (32.0-36.0); MEAN PLATELET VOLUME 7.5 FL (7.0-11.0); PLATELET COUNT 264 TH/MM3 (150-450); RED BLOOD COUNT 2.65 MIL/MM3 (4.00-5.30); RED CELL DISTRIBUTION WIDTH 18.4 % (11.6-17.2); WHITE BLOOD COUNT 10.1 TH/MM3 (4.0-11.0)
[2017-05-01] MEDS: ENOXAPARIN SODIUM 60 MG/0.6 ML SYRINGE SQ SCH ×2 (08:07→17:19)
[2017-05-01] MEDS: CLINDAMYCIN 900 MG/DEX PREMIX 50 ML IV SCH (08:08)
[2017-05-01] MEDS: PANTOPRAZOLE SOD 40 MG DELAYED RELEASE TAB PO SCH (08:54)
[2017-05-01] MEDS: PRAZOSIN HCL 5 MG CAP PO SCH ×2 (08:54→21:03)
[2017-05-01] MEDS: DOCUSATE SODIUM 50 MG/SENNA 8.6 MG TAB PO SCH ×2 (08:54→21:03)
[2017-05-01] MEDS: predniSONE 5 MG TAB PO SCH (08:54)
[2017-05-01] MEDS: SILDENAFIL CITRATE 20 MG TAB PO SCH ×3 (08:54→18:00)
[2017-05-01] MEDS: GABAPENTIN 100 MG CAP PO SCH ×2 (08:54→21:01)
[2017-05-01] MEDS: ESCITALOPRAM OXALATE 20 MG TAB PO SCH (08:54)
[2017-05-01] MEDS: HYDROXYCHLOROQUINE SULFATE 200 MG TAB PO SCH ×2 (08:54→21:03)
[2017-05-01] MEDS: PRAVASTATIN SOD 40 MG TAB PO SCH (08:55)
[2017-05-01] MEDS: FUROSEMIDE 20 MG TAB PO SCH ×2 (08:55→21:00)
[2017-05-01] MEDS: NIFEdipine 60 MG SUSTAINED RELEASE TAB PO SCH (08:55)
[2017-05-01] MEDS: ASPIRIN 81 MG CHEW TAB CHEW SCH (08:57)
[2017-05-01] MEDS: SODIUM CHLORIDE 0.9% FLUSH 10 ML FLUSH IV FLUSH SCH ×2 (09:00→21:00)
--- NOTE | 2017-05-01 14:00 | PD.ONC.PN ---
Subjective Subjective Remarks Resting comfortably in bed. Pain is well controlled. s/p surgical repair of shoulder. Restarted anticoagulation. Objective Data Date Time Temp Pulse Resp B/P (MAP) Pulse Ox O2 Delivery O2 Flow Rate FiO2 05/01/17 12:00 99.4 88 18 116/71 (86) 93 05/01/17 10:25 95 2.00 05/01/17 08:00 98.9 84 18 94/48 (63) 91 05/01/17 07:08 98.1 85 16 116/68 (84) 96 05/01/17 05:55 18 05/01/17 05:43 18 05/01/17 01:23 98.2 66 16 118/58 (78) 96 04/30/17 22:00 18 04/30/17 21:39 Nasal Cannula 3.00 04/30/17 20:15 98.8 87 16 128/65 (86) 95 Nasal Cannula 3 04/30/17 20:12 15 04/30/17 20:02 15 04/30/17 20:00 88 16 129/64 (85) 94 Nasal Cannula 3 04/30/17 19:45 89 16 131/62 (85) 93 Nasal Cannula 3 04/30/17 19:30 85 16 132/63 (86) 92 Nasal Cannula 3 04/30/17 19:15 85 16 129/62 (84) 92 Nasal Cannula 3 04/30/17 19:10 98.5 86 24 131/65 (87) 99 Nasal Cannula 4 05/01/17 05/01/17 05/01/17 06:59 14:59 22:59 Intake Total 480 ml Output Total 450 ml Balance 30 ml Result Diagram: 05/01/17 0425 05/01/17 0425 Laboratory Results Laboratory Tests Test 04/30/17 17:05 04/30/17 18:25 04/30/17 18:28 05/01/17 04:25 Blood Gas Puncture Site ART LINE ART LINE Blood Gas Patient Temperature 98.6 98.6 Blood Gas HCO3 25 mmol/L 25 mmol/L Blood Gas Base Excess 1.3 mmol/L 0.4 mmol/L Blood Gas Oxygen Saturation 96 % 95 % Arterial Blood pH 7.44 7.39 Arterial Blood Partial Pressure CO2 37 mmHg 42 mmHg Arterial Blood Partial Pressure O2 155 mmHg 115 mmHg Arterial Blood Oxygen Content 12.5 Vol % 10.3 Vol % Arterial Blood Carboxyhemoglobin 2.8 % 2.7 % Arterial Blood Methemoglobin 1.3 % 1.4 % Blood Gas Hemoglobin 9.1 G/DL 7.6 G/DL Oxygen Delivery Device VENTILATOR VENTILATOR Blood Gas Ventilator Setting AC/VT550/R12/P5 AC/VT550/R12/P5 Blood Gas Inspired Oxygen 60 % 60 % White Blood Count 9.2 TH/MM3 10.1 TH/MM3 Red Blood Count 2.67 MIL/MM3 2.65 MIL/MM3 Hemoglobin 7.4 GM/DL 7.4 GM/DL Hematocrit 22.9 % 22.8 % Mean Corpuscular Volume 85.8 FL 86.1 FL Mean Corpuscular Hemoglobin 27.7 PG 27.9 PG Mean Corpuscular Hemoglobin Concent 32.3 % 32.3 % Red Cell Distribution Width 18.0 % 18.4 % Platelet Count 285 TH/MM3 264 TH/MM3 Mean Platelet Volume 7.2 FL 7.5 FL Neutrophils (%) (Auto) 80.2 % Lymphocytes (%) (Auto) 8.8 % Monocytes (%) (Auto) 10.2 % Eosinophils (%) (Auto) 0.5 % Basophils (%) (Auto) 0.3 % Neutrophils # (Auto) 7.4 TH/MM3 Lymphocytes # (Auto) 0.8 TH/MM3 Monocytes # (Auto) 0.9 TH/MM3 Eosinophils # (Auto) 0.0 TH/MM3 Basophils # (Auto) 0.0 TH/MM3 CBC Comment DIFF FINAL Differential Comment Prothrombin Time 14.1 SEC 13.9 SEC Prothromb Time International Ratio 1.4 RATIO 1.4 RATIO Blood Urea Nitrogen 6 MG/DL Creatinine 0.51 MG/DL Random Glucose 159 MG/DL Calcium Level 8.0 MG/DL Magnesium Level 2.1 MG/DL Sodium Level 140 MEQ/L Potassium Level 3.7 MEQ/L Chloride Level 107 MEQ/L Carbon Dioxide Level 26.4 MEQ/L Anion Gap 7 MEQ/L Estimat Glomerular Filtration Rate 128 ML/MIN Administered Medications Medications (Trade) Dose Ordered Sig/Wilfrid Route PRN Reason Start Time Stop Time Status Last Admin Dose Admin Sodium Chloride (NS Flush) 2 ml BID IV FLUSH 04/29/17 09:00 04/30/17 22:50 Escitalopram Oxalate (Lexapro) 20 mg DAILY PO 04/29/17 09:00 3/1/18 08:54 Furosemide (Lasix) 20 mg BID PO 04/29/17 09:00 05/01/17 08:55 Gabapentin (Neurontin) 100 mg BID PO 04/29/17 09:00 05/01/17 08:54 Hydroxychloroquine Sulfate (Plaquenil) 200 mg BID PO 04/29/17 09:00 05/01/17 08:54 Nifedipine (Procardia Xl) 60 mg DAILY PO 04/29/17 09:00 05/01/17 08:55 Pantoprazole Sodium (Protonix) 40 mg DAILY PO 04/29/17 09:00 05/01/17 08:54 Prazosin HCl (Minipress) 5 mg BID PO 04/29/17 09:00 05/01/17 08:54 Prednisone (Deltasone) 5 mg DAILY PO 04/29/17 09:00 05/01/17 08:54 Sildenafil Citrate (Revatio) 20 mg TID PO 04/29/17 09:00 05/01/17 08:54 Pravastatin Sodium (Pravachol) 40 mg DAILY PO 04/29/17 09:00 05/01/17 08:55 Aspirin (Aspirin Chew) 81 mg DAILY CHEW 05/01/17 09:00 05/01/17 08:57 Cyclobenzaprine HCl (Flexeril) 10 mg HS PO 04/30/17 21:00 04/30/17 22:49 Dextrose/Sodium Chloride 1,000 ml @ 100 mls/hr Q10H IV 04/30/17 18:37 05/01/17 04:37 Enoxaparin Sodium (Lovenox Inj) 60 mg Q12H SQ 05/01/17 07:00 05/01/17 08:07 Oxycodone/ Acetaminophen (Percocet 5-325 Mg) 2 tab Q6H PRN PO PAIN GREATER THAN/EQUAL TO 5 04/30/17 18:45 05/01/17 04:24 Senna/Docusate Sodium (Cathy-Colace) 1 tab BID PO 04/30/17 21:00 05/01/17 08:54 Hydromorphone HCl (Dilaudid INSULATION MACHINE OPERATOR Inj) 6 mg UNSCH IV 04/30/17 18:45 05/01/17 05:55 INSULATION MACHINE OPERATOR Dosage Infused (Pha) 1 Q8HR OTHER 04/30/17 22:00 05/01/17 05:43 Objective Remarks GENERAL: Well-nourished, well-developed patient. SKIN: Warm and dry. HEAD: Normocephalic. right eeye bruising EYES: No scleral icterus. No injection or drainage. RESPIRATORY: No accessory muscle use. EXTREMITIES: left knee bruising MUSCULOSKELETAL: s/p right shoulder surgery with ice bag and sling NEUROLOGICAL: No obvious focal deficit. Awake, alert, and oriented x3. PSYCHIATRIC: Appropriate mood and affect; insight and judgment normal. Assessment/Plan Assessment 1. s/p fall at home with fracture of shoulder and s/p orthopedic repair on 04/30. 2. Antiphospholipid antibody syndrome, venous thromboembolism, chronic anticoagulation therapy with warfarin: Primary lens matcher is Dr. Shetty in [place]. Resuming anticoagulation with lovenox 60 mg BID (half dose of therapeutic anticoagulation) and starting warfarin therapy. 3. Anemia: acute blood anemia due to surgery. Haydee Davis MD May 01, 2017 14:00
--- NOTE | 2017-05-01 14:41 | PD.ORT.PN ---
Subjective Subjective Remarks Patient comfortable. Pain controlled. OOB sitting in recliner. Objective Vitals Vital Signs Date Time Temp Pulse Resp B/P (MAP) Pulse Ox O2 Delivery O2 Flow Rate FiO2 05/01/17 12:00 99.4 88 18 116/71 (86) 93 05/01/17 10:25 95 2.00 05/01/17 08:00 98.9 84 18 94/48 (63) 91 05/01/17 07:08 98.1 85 16 116/68 (84) 96 05/01/17 05:55 18 05/01/17 05:43 18 05/01/17 01:23 98.2 66 16 118/58 (78) 96 04/30/17 22:00 18 04/30/17 21:39 Nasal Cannula 3.00 04/30/17 20:15 98.8 87 16 128/65 (86) 95 Nasal Cannula 3 04/30/17 20:12 15 04/30/17 20:02 15 04/30/17 20:00 88 16 129/64 (85) 94 Nasal Cannula 3 04/30/17 19:45 89 16 131/62 (85) 93 Nasal Cannula 3 04/30/17 19:30 85 16 132/63 (86) 92 Nasal Cannula 3 04/30/17 19:15 85 16 129/62 (84) 92 Nasal Cannula 3 04/30/17 19:10 98.5 86 24 131/65 (87) 99 Nasal Cannula 4 I/O 04/30/17 04/30/17 04/30/17 05/01/17 05/01/17 05/01/17 06:59 14:59 22:59 06:59 14:59 22:59 Intake Total 0 ml 0 ml 2513 ml 480 ml Output Total 450 ml Balance 0 ml 0 ml 2513 ml 30 ml Intake Oral 0 ml 0 ml 480 ml IV Total 50 ml Autotransfusion 263 ml Other 2200 ml Output Urine Total 450 ml # Voids 3 2 0 # Bowel Movements 0 0 Result Diagram: 05/01/175 05/01/17424 Other Results Laboratory Tests Test 04/30/17 18:28 05/01/17 04:25 Prothromb Time International Ratio 1.4 RATIO 1.4 RATIO Prothrombin Time 14.1 SEC (9.8-11.6) 13.9 SEC (9.8-11.6) Objective Remarks Right shoulder dressing C/D/I sling & swath in place NVI Assessment & Plan Assessment and Plan POD #1 Reverse Total Right Shoulder Arthroplasty for Fracture Pain management - MATHEMATICIAN and Percocet DVT prophylaxis - Lovenox Medical management Physical therapy - Pendulum exercise No touch dressing D/C planning - patient would like to return home ([place]) Monitor Malcolm Murray May 01, 2017 14:41
[2017-05-01] MEDS: WARFARIN SOD 10 MG TAB PO SCH (16:18)
[2017-05-01] MEDS: WARFARIN SOD 5 MG TAB PO SCH (16:18)
--- NOTE | 2017-05-01 16:36 | HHI.PR ---
Subjective Remarks The patient said she had a lot of pain when she woke up this morning. She said she passed out and forgot to use the pain pump. She is currently feeling better. She wanted to know if she could get a blood transfusion before she left. She had questions about pursuing air travel soon. She said her right eye has been getting more bloodshot. Discussed with nursing. Objective Vitals Vital Signs Date Time Temp Pulse Resp B/P (MAP) Pulse Ox O2 Delivery O2 Flow Rate FiO2 05/01/17 12:00 99.4 88 18 116/71 (86) 93 05/01/17 10:25 95 2.00 05/01/17 08:00 98.9 84 18 94/48 (63) 91 05/01/17 07:08 98.1 85 16 116/68 (84) 96 05/01/17 05:55 18 05/01/17 05:43 18 05/01/17 01:23 98.2 66 16 118/58 (78) 96 04/30/17 22:00 18 04/30/17 21:39 Nasal Cannula 3.00 04/30/17 20:15 98.8 87 16 128/65 (86) 95 Nasal Cannula 3 04/30/17 20:12 15 04/30/17 20:02 15 04/30/17 20:00 88 16 129/64 (85) 94 Nasal Cannula 3 04/30/17 19:45 89 16 131/62 (85) 93 Nasal Cannula 3 04/30/17 19:30 85 16 132/63 (86) 92 Nasal Cannula 3 04/30/17 19:15 85 16 129/62 (84) 92 Nasal Cannula 3 04/30/17 19:10 98.5 86 24 131/65 (87) 99 Nasal Cannula 4 I/O 04/30/17 04/30/17 04/30/17 05/01/17 05/01/17 05/01/17 07:00 15:00 23:00 07:00 15:00 23:00 Intake Total 0 ml 0 ml 2513 ml 1200 ml Output Total 450 ml Balance 0 ml 0 ml 2513 ml 750 ml Intake Oral 0 ml 0 ml 1200 ml IV Total 50 ml Autotransfusion 263 ml Other 2200 ml Output Urine Total 450 ml # Voids 3 2 0 2 # Bowel Movements 0 0 Result Diagram: 05/01/17 0425 05/01/17 0425 Imaging Last Impressions Shoulder X-Ray 04/30/17 0000 Signed Impressions: Service Date/Time: Sunday, April 30, 2017 19:40 - CONCLUSION: Right shoulder replacement is noted in good position Heath Armas MD Multiplanar Reconstruction 04/29/17 0800 Signed Impressions: Service Date/Time: Saturday, April 29, 2017 08:24 - CONCLUSION: 3-D reconstructions again demonstrate the comminuted displaced right proximal humerus fracture. Please refer to right shoulder CT examination for further details. Eleazar Triplett MD Pelvis X-Ray 04/29/17 001 Signed Impressions: Service Date/Time: Saturday, April 29, 2017 00:21 - CONCLUSION: 1. No acute fracture or dislocation. Adan Shrestha MD Maxillofacial CT 04/29/1715 Signed Impressions: Service Date/Time: Saturday, April 29, 2017 00:59 - CONCLUSION: 1. No acute facial fracture. Adan Shrestha MD Knee X-Ray 04/29/17 001 Signed Impressions: Service Date/Time: Saturday, April 29, 2017 00:21 - CONCLUSION: 1. No acute fracture or dislocation. Adan Shrestha MD Humerus X-Ray 04/29/1715 Signed Impressions: Service Date/Time: Saturday, April 29, 2017 00:21 - CONCLUSION: 1. Redemonstration of impacted slightly comminuted fracture of the humeral head with interval reduction of the distal fragment. Adan Shrestha MD ADDENDUM: There is a large fragment of the humeral head that remains inferiorly displaced. Adan Shrestha MD Head CT 04/29/17 0016 Signed Impressions: Service Date/Time: Saturday, April 29, 2017 00:59 - CONCLUSION: 1. No acute intracranial abnormality. Adan Shrestha MD Chest X-Ray 04/29/17 0016 Signed Impressions: Service Date/Time: Saturday, April 29, 2017 00:21 - CONCLUSION: 1. Comminuted fracture of the right humeral head. 2. Otherwise, negative portable chest status post trauma. Adan Shrestha MD Chest CT 04/29/1715 Signed Impressions: Service Date/Time: Saturday, April 29, 2017 00:59 - CONCLUSION: 1. Comminuted impacted fracture of the right humeral head with displacement of large humeral head fragment anteriorly and inferiorly with respect to the glenoid fossa. 2. Mild diffuse ground glass opacities in the lower lobes, likely atelectasis although pulmonary contusions cannot be entirely excluded. 3. Mildly dilated fluid filled esophagus. Adan Shrestha MD Cervical Spine CT 04/29/176 Signed Impressions: Service Date/Time: Saturday, April 29, 2017 00:59 - CONCLUSION: 1. No acute fracture or subluxation. Adan Shrestha MD Abdomen/Pelvis CT 04/29/1715 Signed Impressions: Service Date/Time: Saturday, April 29, 2017 00:59 - CONCLUSION: 1. No CT evidence for acute traumatic injury in the abdomen or pelvis. 2. 8mm nonobstructing calcified calyceal calculus in the inferior pole of the right kidney. Adan Shrestha MD Upper Extremity CT 04/29/17 0000 Signed Impressions: Service Date/Time: Saturday, April 29, 2017 08:24 - CONCLUSION: Comminuted and displaced fracture through the right proximal humeral surgical neck with displaced and dislocated humeral head fragment which is displaced medially and the greater tuberosity and lateral aspect of the humeral head displaced laterally. Eleazar Triplett MD Objective Remarks GENERAL: Resting comfortably. SKIN: Ecchymoses surrounding right eye and swelling/ecchymoses over left knee. HEAD: Normocephalic. No temporal or scalp tenderness. EYES: Right eye is injected medially. ENT: Nose without bleeding, purulent drainage or septal hematoma. Throat without erythema, tonsillar hypertrophy or exudate. Uvula midline. Airway patent. NECK: Trachea midline. No JVD or lymphadenopathy. Supple, nontender, no meningeal signs. CARDIOVASCULAR: Regular rate and rhythm. 3/6 CORNELIUS. RESPIRATORY: Clear to auscultation. Breath sounds equal bilaterally. No wheezes , rales, or rhonchi. GASTROINTESTINAL: Abdomen soft, non-tender, nondistended. No hepato-splenomegaly , or palpable masses. No guarding. MUSCULOSKELETAL: Right arm in sling. Neurovascularly intact. NEUROLOGICAL: Awake and alert. Cranial nerves II through XII intact. Motor and sensory grossly within normal limits. Normal speech. PSYCH: Mood and affect appropriate. Procedures Status post right humeral fracture repair 04/30/17 Medications and IVs Current Medications Medications (Trade) Dose Ordered Sig/Wilfrid Route Start Time Stop Time Status Last Admin (NS Flush) 2 ml UNSCH PRN IV FLUSH 04/29/17 03:00 (NS Flush) 2 ml BID IV FLUSH 04/29/17 09:00 04/30/17 22:50 (Lexapro) 20 mg DAILY PO 04/29/17 09:00 05/01/17 08:54 (Lasix) 20 mg BID PO 04/29/17 09:00 05/01/17 08:55 (Neurontin) 100 mg BID PO 04/29/17 09:00 05/01/17 08:54 (Plaquenil) 200 mg BID PO 04/29/17 09:00 05/01/17 08:54 (Procardia Xl) 60 mg DAILY PO 04/29/17 09:00 05/01/17 08:55 (Protonix) 40 mg DAILY PO 04/29/17 09:00 05/01/17 08:54 (Minipress) 5 mg BID PO 04/29/17 09:00 05/01/17 08:54 (Deltasone) 5 mg DAILY PO 04/29/17 09:00 05/01/17 08:54 (Revatio) 20 mg TID PO 04/29/17 09:00 05/01/17 13:00 (Pravachol) 40 mg DAILY PO 04/29/17 09:00 05/01/17 08:55 (Betadine 5% Antisepsis Kit) 1 applic AIDS SOCIAL WORKER PRN EACH NARE 04/29/17 20:45 05/02/17 20:44 (Aspirin Chew) 81 mg DAILY CHEW 05/01/17 09:00 05/01/17 08:57 (Flexeril) 10 mg HS PO 04/30/17 21:00 04/30/17 22:49 (Coumadin) 5 mg MoTuWeThFrSa@1600 PO 05/01/17 16:00 05/01/17 16:18 Dextrose/Sodium Chloride 1,000 ml @ 100 mls/hr Q10H IV 04/30/17 18:37 05/01/17 04:37 (Lovenox Inj) 60 mg Q12H SQ 05/01/17 07:00 05/01/17 08:07 Miscellaneous Information UNSCH PRN XX 04/30/17 18:45 (Percocet 5-325 Mg) 1 tab Q4H PRN PO 04/30/17 18:45 (Percocet 5-325 Mg) 2 tab Q6H PRN PO 04/30/17 18:45 05/01/17 04:24 (Tylenol) 650 mg Q6H PRN PO 04/30/17 18:45 (Zofran Inj) 4 mg Q4H PRN IVP 04/30/17 18:45 (Benadryl) 25 mg Q6H PRN PO 04/30/17 18:45 (Cathy-Colace) 1 tab BID PO 04/30/17 21:00 05/01/17 08:54 (Milk Of Magnesia Liq) 30 ml Q12H PRN PO 04/30/17 18:45 (Senokot) 17.2 mg Q12H PRN PO 04/30/17 18:45 (Dulcolax Supp) 10 mg DAILY PRN RECTAL 04/30/17 18:45 (Lactulose Liq) 30 ml DAILY PRN PO 04/30/17 18:45 (Narcan Inj) 0.4 mg UNSCH PRN IV PUSH 04/30/17 18:45 (Dilaudid PRIMARY CARE PROVIDER Inj) 6 mg UNSCH IV 04/30/17 18:45 05/01/17 05:55 PRIMARY CARE PROVIDER Dosage Infused (Pha) 1 Q8HR OTHER 04/30/17 22:00 05/01/17 05:43 Miscellaneous Information ALL NURSING DEPARTME... UNSCH PRN .XX 04/30/17 19:10 05/01/17 19:09 (Coumadin) 10 mg DAILY@1600 PO 05/01/17 16:00 05/01/17 16:18 Pharmacy Profile Note 0 ml @ 0 mls/hr UNSCH OTHER 05/01/17 10:15 A/P Assessment and Plan Humeral head fracture S/p mechanical fall. Upper extremity CT: Comminuted and displaced fracture through the right proximal humeral surgical neck with displaced and dislocated humeral head fragment which is displaced medially and the greater tuberosity and lateral aspect of the humeral head displaced laterally. Orthopedic surgery consulted, appreciate recommendations. S/p surgical repair 04/30. - pain control with a bowel regimen. - weightbearing and wound care per ortho. - PT/ OT. Antiphospholipid syndrome/history of DVT/PE Anticoagulated on Coumadin with goal INR of 3.5-4.5 per patient. Hematology consult appreciated. S/p IV vitamin K. - anticoagulation following surgery per ortho and hematology. Currently on Lovenox and Coumadin. - follow INR. Anemia The pt had an elevated INR on presentation. Hemoglobin decreased following surgery. - follow CBC and transfuse as needed. Left knee hematoma Imaging negative for an acute process. - supportive care. - PT. Scleroderma Currently stable. - continue home regimen. Right eye injection Likely s/t burst superficial vessel. - conservative management. PPx: Lovenox/ Coumadin Discharge Planning D/c when cleared by ortho Satya Mercer DO May 01, 2017 16:36
[2017-05-01] MEDS: CYCLOBENZAPRINE HCL 10 MG TAB PO SCH (21:02)
[2017-05-02] VITALS (11 sets, daily range): BP systolic 94–120; BP diastolic 44–58; PULSE 89–94; RESP 17–18; TEMP 97.1–100.3; O2SAT 94–97
[2017-05-02] MEDS: DEXT 5%-NACL 0.45% 1000 ML INJ 1,000 ML IV SCH ×3 (00:37→20:37)
[2017-05-02] MEDS: ENOXAPARIN SODIUM 60 MG/0.6 ML SYRINGE SQ SCH ×2 (05:02→20:46)
[2017-05-02] MEDS: PCA - TOTAL MG DILAUDID DELIVERED PER SHIFT OTHER SCH ×3 (05:05→22:00)
[2017-05-02] MEDS: HYDROmorphone HCL PCA 6 MG/30 ML IV SCH ×2 (06:22→16:54)
[2017-05-02 07:36] LABS: HEMATOCRIT 21.7 % (35.0-46.0); MEAN CELL VOLUME 85.9 FL (80.0-100.0); MEAN CORPUSCULAR HEMOGLOBIN 27.7 PG (27.0-34.0); MEAN CORPUSCULAR HGB CONC 32.2 % (32.0-36.0); MEAN PLATELET VOLUME 7.7 FL (7.0-11.0); PLATELET COUNT 274 TH/MM3 (150-450); RED BLOOD COUNT 2.52 MIL/MM3 (4.00-5.30); RED CELL DISTRIBUTION WIDTH 18.4 % (11.6-17.2); WHITE BLOOD COUNT 10.7 TH/MM3 (4.0-11.0)
[2017-05-02 07:42] LABS: INTERNATIONAL NORMALIZED RATIO 1.7 RATIO; PROTHROMBIN TIME - PATIENT 16.7 SEC (9.8-11.6)
[2017-05-02 08:10] LABS: BICARBONATE 25.9 MEQ/L (21.0-32.0); CALCIUM 8.5 MG/DL (8.5-10.1); CREATININE 0.57 MG/DL (0.50-1.00)
[2017-05-02] MEDS: GABAPENTIN 100 MG CAP PO SCH ×2 (08:50→20:46)
[2017-05-02] MEDS: HYDROXYCHLOROQUINE SULFATE 200 MG TAB PO SCH ×2 (08:50→20:47)
[2017-05-02] MEDS: PRAVASTATIN SOD 40 MG TAB PO SCH (08:50)
[2017-05-02] MEDS: ESCITALOPRAM OXALATE 20 MG TAB PO SCH (08:51)
[2017-05-02] MEDS: PANTOPRAZOLE SOD 40 MG DELAYED RELEASE TAB PO SCH (08:52)
[2017-05-02] MEDS: ASPIRIN 81 MG CHEW TAB CHEW SCH (08:52)
[2017-05-02] MEDS: FUROSEMIDE 20 MG TAB PO SCH ×2 (08:53→20:51)
[2017-05-02] MEDS: predniSONE 5 MG TAB PO SCH (08:53)
[2017-05-02] MEDS: DOCUSATE SODIUM 50 MG/SENNA 8.6 MG TAB PO SCH ×2 (08:53→20:48)
[2017-05-02] MEDS: SODIUM CHLORIDE 0.9% FLUSH 10 ML FLUSH IV FLUSH SCH ×2 (08:54→21:00)
[2017-05-02] MEDS: NIFEdipine 60 MG SUSTAINED RELEASE TAB PO SCH (09:00)
[2017-05-02] MEDS: PRAZOSIN HCL 5 MG CAP PO SCH ×2 (09:00→20:47)
[2017-05-02] MEDS: SILDENAFIL CITRATE 20 MG TAB PO SCH ×3 (09:00→16:46)
--- NOTE | 2017-05-02 13:30 | PD.ORT.PN ---
Subjective Subjective Remarks Patient comfortable. Pain controlled. Objective Vitals Vital Signs Date Time Temp Pulse Resp B/P (MAP) Pulse Ox O2 Delivery O2 Flow Rate FiO2 05/02/17 12:00 98.2 91 17 98/48 (65) 95 05/02/17 09:45 94 Nasal Cannula 2.00 05/02/17 09:00 97 Room Air 2.00 05/02/17 07:57 98.3 91 17 98/44 (62) 94 05/02/17 05:00 97.1 94 18 96/44 (61) 95 05/01/17 23:30 98.9 93 18 105/53 (70) 97 05/01/17 21:30 95 Nasal Cannula 2.00 05/01/17 20:10 98.9 93 18 123/75 (91) 95 05/01/17 19:26 Room Air 05/01/17 17:18 16 05/01/17 16:20 98.2 89 17 99/56 (70) 92 05/01/17 14:00 16 I/O 05/01/17 05/01/17 05/01/17 05/02/17 05/02/17 05/02/17 07:00 15:00 23:00 07:00 15:00 23:00 Intake Total 1200 ml 720 ml Output Total 450 ml Balance 750 ml 720 ml Intake Oral 1200 ml 720 ml Output Urine Total 450 ml # Voids 2 2 # Bowel Movements 0 Result Diagram: 05/02/17 0650 05/02/17 0650 Other Results Laboratory Tests Test 05/02/17 06:50 Prothromb Time International Ratio 1.7 RATIO Prothrombin Time 16.7 SEC (9.8-11.6) Objective Remarks Right shoulder dressing C/D/I sling & swath in place NVI Assessment & Plan Assessment and Plan POD #2 Reverse Total Right Shoulder Arthroplasty for Fracture Pain management - Percocet DVT prophylaxis - Lovenox Medical management Physical therapy - Pendulum exercise only No touch dressing. After 1 week initiate dressing changes. D/C planning - patient would like to return home ([place]) Orthopedically stable for discharge. Ok to fly back home. Will need medical clearance. Patient requesting medical records to take back home along with images on a disc. Advised to F/U with orthopedic surgeon back home for continuation of care. Otherwise F/U in [address] Hernandez or TAMIKA in office. Malcolm Murray May 02, 2017 13:30
--- NOTE | 2017-05-02 14:23 | HHI.PR ---
Subjective Remarks The patient was feeling rather weak. She said that her blood normally only improves by 0.3 or 0.4 after a blood transfusion. She says she was having some pain. She was also having some shortness of breath. Discussed with nursing. Objective Vitals Vital Signs Date Time Temp Pulse Resp B/P (MAP) Pulse Ox O2 Delivery O2 Flow Rate FiO2 05/02/17 12:00 98.2 91 17 98/48 (65) 95 05/02/17 09:45 94 Nasal Cannula 2.00 05/02/17 09:00 97 Room Air 2.00 05/02/17 07:57 98.3 91 17 98/44 (62) 94 05/02/17 05:00 97.1 94 18 96/44 (61) 95 05/01/17 23:30 98.9 93 18 105/53 (70) 97 05/01/17 21:30 95 Nasal Cannula 2.00 05/01/17 20:10 98.9 93 18 123/75 (91) 95 05/01/17 19:26 Room Air 05/01/17 17:18 16 05/01/17 16:20 98.2 89 17 99/56 (70) 92 I/O 05/01/17 05/01/17 05/01/17 05/02/17 05/02/17 05/02/17 07:00 15:00 23:00 07:00 15:00 23:00 Intake Total 1200 ml 720 ml 5 ml Output Total 450 ml Balance 750 ml 720 ml 5 ml Intake Oral 1200 ml 720 ml Blood Product IV Normal Saline Flush 5 ml Output Urine Total 450 ml # Voids 2 2 # Bowel Movements 0 Result Diagram: 05/02/17 0650 05/02/17 0650 Imaging Last Impressions Shoulder X-Ray 04/30/17 0000 Signed Impressions: Service Date/Time: Sunday, April 30, 2017 19:40 - CONCLUSION: Right shoulder replacement is noted in good position Heath Armas MD Multiplanar Reconstruction 04/29/17 0800 Signed Impressions: Service Date/Time: Saturday, April 29, 2017 08:24 - CONCLUSION: 3-D reconstructions again demonstrate the comminuted displaced right proximal humerus fracture. Please refer to right shoulder CT examination for further details. Eleazar Triplett MD Pelvis X-Ray 2/27/18 0016 Signed Impressions: Service Date/Time: Saturday, April 29, 2017 00:21 - CONCLUSION: 1. No acute fracture or dislocation. Adan Shrestha MD Maxillofacial CT 04/29/176 Signed Impressions: Service Date/Time: Saturday, April 29, 2017 00:59 - CONCLUSION: 1. No acute facial fracture. Adan Shrestha MD Knee X-Ray 04/29/1715 Signed Impressions: Service Date/Time: Saturday, April 29, 2017 00:21 - CONCLUSION: 1. No acute fracture or dislocation. Adan Shrestha MD Humerus X-Ray 04/29/1715 Signed Impressions: Service Date/Time: Saturday, April 29, 2017 00:21 - CONCLUSION: 1. Redemonstration of impacted slightly comminuted fracture of the humeral head with interval reduction of the distal fragment. Adan Shrestha MD ADDENDUM: There is a large fragment of the humeral head that remains inferiorly displaced. Adan Shrestha MD Head CT 04/29/176 Signed Impressions: Service Date/Time: Saturday, April 29, 2017 00:59 - CONCLUSION: 1. No acute intracranial abnormality. Adan Shrestha MD Chest X-Ray 04/29/176 Signed Impressions: Service Date/Time: Saturday, April 29, 2017 00:21 - CONCLUSION: 1. Comminuted fracture of the right humeral head. 2. Otherwise, negative portable chest status post trauma. Adan Shrestha MD Chest CT 04/29/176 Signed Impressions: Service Date/Time: Saturday, April 29, 2017 00:59 - CONCLUSION: 1. Comminuted impacted fracture of the right humeral head with displacement of large humeral head fragment anteriorly and inferiorly with respect to the glenoid fossa. 2. Mild diffuse ground glass opacities in the lower lobes, likely atelectasis although pulmonary contusions cannot be entirely excluded. 3. Mildly dilated fluid filled esophagus. Adan Shrestha MD Cervical Spine CT 04/29/176 Signed Impressions: Service Date/Time: Saturday, April 29, 2017 00:59 - CONCLUSION: 1. No acute fracture or subluxation. Adan Shrestha MD Abdomen/Pelvis CT 04/29/17 0016 Signed Impressions: Service Date/Time: Saturday, April 29, 2017 00:59 - CONCLUSION: 1. No CT evidence for acute traumatic injury in the abdomen or pelvis. 2. 8mm nonobstructing calcified calyceal calculus in the inferior pole of the right kidney. Adan Shrestha MD Upper Extremity CT 04/29/17 0000 Signed Impressions: Service Date/Time: Saturday, April 29, 2017 08:24 - CONCLUSION: Comminuted and displaced fracture through the right proximal humeral surgical neck with displaced and dislocated humeral head fragment which is displaced medially and the greater tuberosity and lateral aspect of the humeral head displaced laterally. Eleazar Triplett MD Objective Remarks GENERAL: No distress. SKIN: Ecchymoses surrounding right eye and bandage over left knee. HEAD: Normocephalic. No temporal or scalp tenderness. EYES: Right eye is injected medially. ENT: Nose without bleeding, purulent drainage or septal hematoma. Throat without erythema, tonsillar hypertrophy or exudate. Uvula midline. Airway patent. NECK: Trachea midline. No JVD or lymphadenopathy. Supple, nontender, no meningeal signs. CARDIOVASCULAR: Regular rate and rhythm. 3/6 CORNELIUS. RESPIRATORY: Clear to auscultation. Breath sounds equal bilaterally. No wheezes , rales, or rhonchi. GASTROINTESTINAL: Abdomen soft, non-tender, nondistended. No hepato-splenomegaly , or palpable masses. No guarding. MUSCULOSKELETAL: Right arm in sling. Neurovascularly intact. NEUROLOGICAL: Awake and alert. Cranial nerves II through XII intact. Motor and sensory grossly within normal limits. Normal speech. PSYCH: Mood and affect appropriate. Procedures Status post right humeral fracture repair 04/30/17 Medications and IVs Current Medications Medications (Trade) Dose Ordered Sig/Wilfrid Route Start Time Stop Time Status Last Admin (NS Flush) 2 ml UNSCH PRN IV FLUSH 04/29/17 03:00 (NS Flush) 2 ml BID IV FLUSH 04/29/17 09:00 05/01/17 21:00 (Lexapro) 20 mg DAILY PO 04/29/17 09:00 3/2/18 08:51 (Lasix) 20 mg BID PO 04/29/17 09:00 05/01/17 08:55 (Neurontin) 100 mg BID PO 04/29/17 09:00 05/02/17 08:50 (Plaquenil) 200 mg BID PO 04/29/17 09:00 05/02/17 08:50 (Procardia Xl) 60 mg DAILY PO 04/29/17 09:00 05/01/17 08:55 (Protonix) 40 mg DAILY PO 04/29/17 09:00 05/02/17 08:52 (Minipress) 5 mg BID PO 04/29/17 09:00 05/01/17 21:03 (Deltasone) 5 mg DAILY PO 04/29/17 09:00 05/02/17 08:53 (Revatio) 20 mg TID PO 04/29/17 09:00 05/01/17 13:00 (Pravachol) 40 mg DAILY PO 04/29/17 09:00 05/02/17 08:50 (Betadine 5% Antisepsis Kit) 1 applic CIAIO COUNTER MOLDER PRN EACH NARE 04/29/17 20:45 05/02/17 20:44 (Aspirin Chew) 81 mg DAILY CHEW 05/01/17 09:00 05/02/17 08:52 (Flexeril) 10 mg HS PO 04/30/17 21:00 05/01/17 21:02 (Coumadin) 5 mg MoTuWeThFrSa@1600 PO 05/01/17 16:00 05/01/17 16:18 Dextrose/Sodium Chloride 1,000 ml @ 100 mls/hr Q10H IV 04/30/17 18:37 05/02/17 08:56 (Lovenox Inj) 60 mg Q12H SQ 05/01/17 07:00 05/02/17 05:02 Miscellaneous Information UNSCH PRN XX 04/30/17 18:45 (Percocet 5-325 Mg) 1 tab Q4H PRN PO 04/30/17 18:45 (Percocet 5-325 Mg) 2 tab Q6H PRN PO 04/30/17 18:45 05/01/17 21:02 (Tylenol) 650 mg Q6H PRN PO 04/30/17 18:45 (Zofran Inj) 4 mg Q4H PRN IVP 04/30/17 18:45 (Benadryl) 25 mg Q6H PRN PO 04/30/17 18:45 (Cathy-Colace) 1 tab BID PO 04/30/17 21:00 05/02/17 08:53 (Milk Of Magnesia Liq) 30 ml Q12H PRN PO 04/30/17 18:45 05/02/17 12:47 (Senokot) 17.2 mg Q12H PRN PO 04/30/17 18:45 (Dulcolax Supp) 10 mg DAILY PRN RECTAL 04/30/17 18:45 (Lactulose Liq) 30 ml DAILY PRN PO 04/30/17 18:45 (Narcan Inj) 0.4 mg UNSCH PRN IV PUSH 04/30/17 18:45 (Dilaudid COMPOUND COATING MACHINE OFFBEARER Inj) 6 mg UNSCH IV 04/30/17 18:45 05/02/17 06:22 COMPOUND COATING MACHINE OFFBEARER Dosage Infused (Pha) 1 Q8HR OTHER 04/30/17 22:00 05/02/17 05:05 (Coumadin) 10 mg DAILY@1600 PO 05/01/17 16:00 05/01/17 16:18 Pharmacy Profile Note 0 ml @ 0 mls/hr UNSCH OTHER 05/01/17 10:15 A/P Assessment and Plan Humeral head fracture S/p mechanical fall. Upper extremity CT: Comminuted and displaced fracture through the right proximal humeral surgical neck with displaced and dislocated humeral head fragment which is displaced medially and the greater tuberosity and lateral aspect of the humeral head displaced laterally. Orthopedic surgery consulted, appreciate recommendations. S/p surgical repair 04/30. - pain control with a bowel regimen. - weightbearing and wound care per ortho. - PT/ OT. May need rehab. - incentive spirometry. Antiphospholipid syndrome/history of DVT/PE Anticoagulated on Coumadin with goal INR of 3.5-4.5 per patient. Hematology consult appreciated. S/p IV vitamin K. - anticoagulation following surgery per ortho and hematology. Currently on Lovenox and Coumadin. - follow INR. Anemia The pt had an elevated INR on presentation. Hemoglobin decreased following surgery. - follow CBC and transfuse as needed. 1 unit red cells ordered 05/02. Left knee hematoma Imaging negative for an acute process. - supportive care. - PT. Scleroderma Currently stable. - continue home regimen. Right eye injection Likely s/t burst superficial vessel. - conservative management. Improving. PPx: Lovenox/ Coumadin Discharge Planning May need rehab. Need stabilization of CBC. Satya Mercer DO May 02, 2017 14:23
[2017-05-02] MEDS ORDERED: RESP: ALBUTEROL 2.5 MG/IPRATROPIUM 0.5 MG NEB (PRN) NEB (14:30)
[2017-05-02] MEDS ORDERED: POTASSIUM CHLORIDE 25 MEQ EFFERVESCENT TAB PO ONE (14:45)
[2017-05-02] MEDS: WARFARIN SOD 10 MG TAB PO SCH (15:15)
[2017-05-02] MEDS: WARFARIN SOD 5 MG TAB PO SCH (15:17)
[2017-05-02 18:23] LABS: HEMATOCRIT 22.7 % (35.0-46.0); HEMOGLOBIN 7.5 GM/DL (11.6-15.3); MEAN CELL VOLUME 85.3 FL (80.0-100.0); MEAN CORPUSCULAR HEMOGLOBIN 28.3 PG (27.0-34.0); MEAN CORPUSCULAR HGB CONC 33.1 % (32.0-36.0); MEAN PLATELET VOLUME 7.3 FL (7.0-11.0); PLATELET COUNT 282 TH/MM3 (150-450); RED BLOOD COUNT 2.66 MIL/MM3 (4.00-5.30); RED CELL DISTRIBUTION WIDTH 18.4 % (11.6-17.2); WHITE BLOOD COUNT 8.9 TH/MM3 (4.0-11.0)
[2017-05-02] MEDS: CYCLOBENZAPRINE HCL 10 MG TAB PO SCH (20:46)
[2017-05-03] VITALS (10 sets, daily range): BP systolic 115–142; BP diastolic 49–78; PULSE 82–92; RESP 17–18; TEMP 98.8–99.9; O2SAT 92–96
--- NOTE | 2017-05-03 01:35 | PD.ONC.PN ---
Subjective Subjective Remarks Late note entry. Patient seen at bedside at 8 pm. Patient is resting comfortably in bed in no distress. She is reports that her pain is well controlled. She reports that she is looking forward to going home. She continues to work with physical therapy. Objective Data Date Time Temp Pulse Resp B/P (MAP) Pulse Ox O2 Delivery O2 Flow Rate FiO2 05/03/17 00:00 99.9 91 18 139/60 (86) 95 05/02/17 22:00 18 05/02/17 20:00 99.7 89 18 120/55 (76) 95 05/02/17 18:02 96 Room Air 05/02/17 17:59 100.3 05/02/17 17:30 16 05/02/17 16:54 17 05/02/17 16:00 100.2 91 17 94/52 (66) 95 05/02/17 15:11 100.2 89 17 94/52 95 05/02/17 14:15 99.6 91 17 108/53 97 05/02/17 14:00 99.7 93 17 108/58 05/02/17 14:00 17 05/02/17 12:00 98.2 91 17 98/48 (65) 95 05/02/17 09:45 94 Nasal Cannula 2.00 05/02/17 09:00 97 Room Air 2.00 05/02/17 07:57 98.3 91 17 98/44 (62) 94 05/02/17 05:00 97.1 94 18 96/44 (61) 95 Result Diagram: 05/02/17 1722 05/02/17 0650 Laboratory Results Laboratory Tests Test 05/02/17 06:50 05/02/17 17:22 White Blood Count 10.7 TH/MM3 8.9 TH/MM3 Red Blood Count 2.52 MIL/MM3 2.66 MIL/MM3 Hemoglobin 7.0 GM/DL 7.5 GM/DL Hematocrit 21.7 % 22.7 % Mean Corpuscular Volume 85.9 FL 85.3 FL Mean Corpuscular Hemoglobin 27.7 PG 28.3 PG Mean Corpuscular Hemoglobin Concent 32.2 % 33.1 % Red Cell Distribution Width 18.4 % 18.4 % Platelet Count 274 TH/MM3 282 TH/MM3 Mean Platelet Volume 7.7 FL 7.3 FL Prothrombin Time 16.7 SEC Prothromb Time International Ratio 1.7 RATIO Blood Urea Nitrogen 9 MG/DL Creatinine 0.57 MG/DL Random Glucose 106 MG/DL Calcium Level 8.5 MG/DL Magnesium Level 2.0 MG/DL Sodium Level 138 MEQ/L Potassium Level 3.5 MEQ/L Chloride Level 103 MEQ/L Carbon Dioxide Level 25.9 MEQ/L Anion Gap 9 MEQ/L Estimat Glomerular Filtration Rate 113 ML/MIN Administered Medications Medications (Trade) Dose Ordered Sig/Wilfrid Route PRN Reason Start Time Stop Time Status Last Admin Dose Admin Sodium Chloride (NS Flush) 2 ml BID IV FLUSH 04/29/17 09:00 05/02/17 21:00 Escitalopram Oxalate (Lexapro) 20 mg DAILY PO 04/29/17 09:00 05/02/17 08:51 Furosemide (Lasix) 20 mg BID PO 04/29/17 09:00 05/02/17 20:51 Gabapentin (Neurontin) 100 mg BID PO 04/29/17 09:00 05/02/17 20:46 Hydroxychloroquine Sulfate (Plaquenil) 200 mg BID PO 04/29/17 09:00 05/02/17 20:47 Nifedipine (Procardia Xl) 60 mg DAILY PO 04/29/17 09:00 05/01/17 08:55 Pantoprazole Sodium (Protonix) 40 mg DAILY PO 04/29/17 09:00 05/02/17 08:52 Prazosin HCl (Minipress) 5 mg BID PO 04/29/17 09:00 05/02/17 20:47 Prednisone (Deltasone) 5 mg DAILY PO 04/29/17 09:00 05/02/17 08:53 Sildenafil Citrate (Revatio) 20 mg TID PO 04/29/17 09:00 05/01/17 13:00 Pravastatin Sodium (Pravachol) 40 mg DAILY PO 04/29/17 09:00 05/02/17 08:50 Aspirin (Aspirin Chew) 81 mg DAILY CHEW 05/01/17 09:00 05/02/17 08:52 Cyclobenzaprine HCl (Flexeril) 10 mg HS PO 04/30/17 21:00 05/02/17 20:46 Warfarin Sodium (Coumadin) 5 mg MoTuWeThFrSa@1600 PO 05/01/17 16:00 05/02/17 15:17 Dextrose/Sodium Chloride 1,000 ml @ 100 mls/hr Q10H IV 04/30/17 18:37 05/02/17 20:37 Enoxaparin Sodium (Lovenox Inj) 60 mg Q12H SQ 05/01/17 07:00 05/02/17 20:46 Oxycodone/ Acetaminophen (Percocet 5-325 Mg) 2 tab Q6H PRN PO PAIN GREATER THAN/EQUAL TO 5 04/30/17 18:45 05/01/17 21:02 Senna/Docusate Sodium (Cathy-Colace) 1 tab BID PO 04/30/17 21:00 05/02/17 08:53 Magnesium Hydroxide (Milk Of Amanda Larry) 30 ml Q12H PRN PO Mild constipation 04/30/17 18:45 05/02/17 12:47 Hydromorphone HCl (Dilaudid WAIT STAFF Inj) 6 mg UNSCH IV 04/30/17 18:45 05/02/17 16:54 WAIT STAFF Dosage Infused (Pha) 1 Q8HR OTHER 04/30/17 22:00 05/02/17 22:00 Warfarin Sodium (Coumadin) 10 mg DAILY@1600 PO 05/01/17 16:00 05/02/17 15:15 Objective Remarks GENERAL: overweight lady in no distress. SKIN: Warm and dry. HEAD: Normocephalic. EYES: No scleral icterus. No injection or drainage. NECK: Supple, trachea midline. No JVD or lymphadenopathy. LYMPHATIC: No adenopathy. CARDIOVASCULAR: Regular rate and rhythm without murmurs. RESPIRATORY: Breath sounds equal bilaterally. No accessory muscle use. GASTROINTESTINAL: Abdomen soft, non-tender, nondistended. EXTREMITIES: No cyanosis, or edema. MUSCULOSKELETAL: Adequate muscle tone. NEUROLOGICAL: No obvious focal deficit. Awake, alert, and oriented x3. PSYCHIATRIC: Appropriate mood and affect; insight and judgment normal. Assessment/Plan Assessment 1. s/p fall at home with fracture of shoulder and s/p orthopedic repair on 04/30. 2. Antiphospholipid antibody syndrome, venous thromboembolism, chronic anticoagulation therapy with warfarin: Primary plastics factory worker is Dr. Shetty in [place]. Anticoagulation with lovenox at therapeutic dosing 135 mg BID with transition to warfarin therapy. Goal INR 2.5 to 3.5. Discussed with ortho team. 3. Anemia: acute blood loss anemia due to surgery s/p transfusion Haydee Davis MD May 03, 2017 01:35
[2017-05-03] MEDS: PCA - TOTAL MG DILAUDID DELIVERED PER SHIFT OTHER SCH ×2 (05:24→14:00)
[2017-05-03] MEDS: ENOXAPARIN SODIUM 150 MG/ML SYRINGE SQ SCH ×2 (05:51→18:14)
[2017-05-03] MEDS: DEXT 5%-NACL 0.45% 1000 ML INJ 1,000 ML IV SCH ×2 (06:37→15:31)
[2017-05-03 07:03] LABS: HEMATOCRIT 25.3 % (35.0-46.0); HEMOGLOBIN 8.2 GM/DL (11.6-15.3); MEAN CELL VOLUME 84.7 FL (80.0-100.0); MEAN CORPUSCULAR HEMOGLOBIN 27.6 PG (27.0-34.0); MEAN CORPUSCULAR HGB CONC 32.6 % (32.0-36.0); MEAN PLATELET VOLUME 7.3 FL (7.0-11.0); PLATELET COUNT 332 TH/MM3 (150-450); RED BLOOD COUNT 2.98 MIL/MM3 (4.00-5.30); RED CELL DISTRIBUTION WIDTH 18.2 % (11.6-17.2)
[2017-05-03] MEDS: PANTOPRAZOLE SOD 40 MG DELAYED RELEASE TAB PO SCH (07:48)
[2017-05-03] MEDS: NIFEdipine 60 MG SUSTAINED RELEASE TAB PO SCH (07:48)
[2017-05-03] MEDS: PRAZOSIN HCL 5 MG CAP PO SCH ×2 (07:48→20:39)
[2017-05-03] MEDS: FUROSEMIDE 20 MG TAB PO SCH (07:49)
[2017-05-03] MEDS: ESCITALOPRAM OXALATE 20 MG TAB PO SCH (07:49)
[2017-05-03] MEDS: ASPIRIN 81 MG CHEW TAB CHEW SCH (07:49)
[2017-05-03] MEDS: HYDROXYCHLOROQUINE SULFATE 200 MG TAB PO SCH ×2 (07:49→20:38)
[2017-05-03] MEDS: PRAVASTATIN SOD 40 MG TAB PO SCH (07:49)
[2017-05-03] MEDS: DOCUSATE SODIUM 50 MG/SENNA 8.6 MG TAB PO SCH ×2 (07:49→20:38)
[2017-05-03] MEDS: SILDENAFIL CITRATE 20 MG TAB PO SCH ×3 (07:50→18:14)
[2017-05-03] MEDS: GABAPENTIN 100 MG CAP PO SCH ×2 (07:50→20:38)
[2017-05-03] MEDS: predniSONE 5 MG TAB PO SCH (07:50)
[2017-05-03] MEDS: SODIUM CHLORIDE 0.9% FLUSH 10 ML FLUSH IV FLUSH SCH ×2 (07:51→20:41)
[2017-05-03] MEDS: HYDROmorphone HCL PCA 6 MG/30 ML IV SCH (08:01)
--- NOTE | 2017-05-03 14:39 | PD.ONC.PN ---
Subjective Subjective Remarks Tmax 99.9 overnight Pt reports she still has a considerable amt of pain in her L shoulder No bleeding Objective Data Date Time Temp Pulse Resp B/P (MAP) Pulse Ox O2 Delivery O2 Flow Rate FiO2 05/03/17 14:00 17 05/03/17 12:00 99.1 88 17 116/53 (74) 95 05/03/17 10:03 96 05/03/17 08:15 92 05/03/17 08:01 17 05/03/17 08:00 98.8 90 17 128/56 (80) 96 05/03/17 05:24 18 05/03/17 04:00 99.1 91 18 138/62 (87) 93 05/03/17 00:00 99.9 91 18 139/60 (86) 95 05/02/17 22:00 18 05/02/17 20:00 99.7 89 18 120/55 (76) 95 05/02/17 18:02 96 Room Air 05/02/17 17:59 100.3 05/02/17 17:30 16 05/02/17 16:54 17 05/02/17 16:00 93 05/02/17 16:00 100.2 91 17 94/52 (66) 95 05/02/17 15:11 100.2 89 17 94/52 95 05/03/17 05/03/17 05/03/17 07:00 15:00 23:00 Intake Total 240 ml Balance 240 ml Result Diagram: 05/03/17 0500 05/02/17 0650 Laboratory Results Laboratory Tests Test 05/02/17 17:22 05/03/17 05:00 White Blood Count 8.9 TH/MM3 9.0 TH/MM3 Red Blood Count 2.66 MIL/MM3 2.98 MIL/MM3 Hemoglobin 7.5 GM/DL 8.2 GM/DL Hematocrit 22.7 % 25.3 % Mean Corpuscular Volume 85.3 FL 84.7 FL Mean Corpuscular Hemoglobin 28.3 PG 27.6 PG Mean Corpuscular Hemoglobin Concent 33.1 % 32.6 % Red Cell Distribution Width 18.4 % 18.2 % Platelet Count 282 TH/MM3 332 TH/MM3 Mean Platelet Volume 7.3 FL 7.3 FL Prothrombin Time 20.0 SEC Prothromb Time International Ratio 2.0 RATIO Administered Medications Medications (Trade) Dose Ordered Sig/Wilfrid Route PRN Reason Start Time Stop Time Status Last Admin Dose Admin Sodium Chloride (NS Flush) 2 ml BID IV FLUSH 04/29/17 09:00 05/02/17 21:00 Escitalopram Oxalate (Lexapro) 20 mg DAILY PO 04/29/17 09:00 05/03/17 07:49 Furosemide (Lasix) 20 mg BID PO 04/29/17 09:00 05/03/17 07:49 Gabapentin (Neurontin) 100 mg BID PO 04/29/17 09:00 05/03/17 07:50 Hydroxychloroquine Sulfate (Plaquenil) 200 mg BID PO 04/29/17 09:00 05/03/17 07:49 Nifedipine (Procardia Xl) 60 mg DAILY PO 04/29/17 09:00 05/03/17 07:48 Pantoprazole Sodium (Protonix) 40 mg DAILY PO 04/29/17 09:00 05/03/17 07:48 Prazosin HCl (Minipress) 5 mg BID PO 04/29/17 09:00 05/03/17 07:48 Prednisone (Deltasone) 5 mg DAILY PO 04/29/17 09:00 05/03/17 07:50 Sildenafil Citrate (Revatio) 20 mg TID PO 04/29/17 09:00 05/03/17 13:19 Pravastatin Sodium (Pravachol) 40 mg DAILY PO 04/29/17 09:00 05/03/17 07:49 Aspirin (Aspirin Chew) 81 mg DAILY CHEW 05/01/17 09:00 05/03/17 07:49 Cyclobenzaprine HCl (Flexeril) 10 mg HS PO 04/30/17 21:00 05/02/17 20:46 Warfarin Sodium (Coumadin) 5 mg MoTuWeThFrSa@1600 PO 05/01/17 16:00 05/02/17 15:17 Dextrose/Sodium Chloride 1,000 ml @ 100 mls/hr Q10H IV 04/30/17 18:37 05/02/17 20:37 Oxycodone/ Acetaminophen (Percocet 5-325 Mg) 1 tab Q4H PRN PO PAIN LESS THAN 5 ON SCALE 04/30/17 18:45 05/03/17 05:10 Oxycodone/ Acetaminophen (Percocet 5-325 Mg) 2 tab Q6H PRN PO PAIN GREATER THAN/EQUAL TO 5 04/30/17 18:45 05/01/17 21:02 Senna/Docusate Sodium (Cathy-Colace) 1 tab BID PO 04/30/17 21:00 05/03/17 07:49 Magnesium Hydroxide (Milk Of Amanda Larry) 30 ml Q12H PRN PO Mild constipation 04/30/17 18:45 05/02/17 12:47 Hydromorphone HCl (Dilaudid CRITICAL CARE CLINICAL NURSE SPECIALIST Inj) 6 mg UNSCH IV 04/30/17 18:45 05/03/17 08:01 CRITICAL CARE CLINICAL NURSE SPECIALIST Dosage Infused (Pha) 1 Q8HR OTHER 04/30/17 22:00 05/03/17 14:00 Warfarin Sodium (Coumadin) 10 mg DAILY@1600 PO 05/01/17 16:00 05/02/17 15:15 Enoxaparin Sodium (Lovenox Inj) 135 mg Q12H SQ 05/03/17 07:00 05/03/17 05:51 Objective Remarks GENERAL: Obese middle aged female sitting up in chair at bedside in no obvious distress SKIN: Warm and dry. Hematomas to bilateral knees HEAD: Normocephalic. Ecchymosis to R eye EYES: No injection or drainage. NECK: Supple, trachea midline. CARDIOVASCULAR: Regular rate and rhythm without murmurs. RESPIRATORY: Clear anteriorly. Breathing unlabored. GASTROINTESTINAL: Abdomen soft, non-tender, nondistended. EXTREMITIES: No cyanosis. R arm immobilized. Hematomas to bilateral knees. NEUROLOGICAL: No obvious focal deficit. Awake, alert, and oriented x3. Assessment/Plan Problem List: (1) Anticoagulated on Coumadin ICD Codes: Z51.81 - Encounter for therapeutic drug level monitoring; Z79.01 - retirement (current) use of anticoagulants Status: Acute Plan: -- Hx of antiphospholipid antibody syndrome (2) Closed 4-part fracture of proximal end of right humerus ICD Codes: S42.291A - Other displaced fracture of upper end of right humerus, initial encounter for closed fracture Plan: -- s/p repair of orthopedic surgery Assessment 1. Continue Lovenox- Coumadin bridge with INR goal of 2.5-3.5 for hx of antiphospholipid antibody syndrome. 2. Monitor for bleeding 3. Monitor CBC Maya Carlos May 03, 2017 14:39
[2017-05-03] MEDS: WARFARIN SOD 10 MG TAB PO SCH (15:31)
[2017-05-03] MEDS: WARFARIN SOD 5 MG TAB PO SCH (15:31)
--- NOTE | 2017-05-03 15:54 | HHI.PR ---
Subjective Remarks The patient was in a lot of pain with minimal movement. She said that she felt like her left knee was going to burst. She had questions about taking oral pain medications. Discussed with nursing. Objective Vitals Vital Signs Date Time Temp Pulse Resp B/P (MAP) Pulse Ox O2 Delivery O2 Flow Rate FiO2 05/03/17 15:48 99.2 90 17 142/78 (99) 96 05/03/17 14:00 17 05/03/17 12:00 99.1 88 17 116/53 (74) 95 05/03/17 10:03 96 05/03/17 08:15 92 05/03/17 08:01 17 05/03/17 08:00 98.8 90 17 128/56 (80) 96 05/03/17 05:24 18 05/03/17 04:00 99.1 91 18 138/62 (87) 93 05/03/17 00:00 99.9 91 18 139/60 (86) 95 05/02/17 22:00 18 05/02/17 20:00 99.7 89 18 120/55 (76) 95 05/02/17 18:02 96 Room Air 05/02/17 17:59 100.3 05/02/17 17:30 16 05/02/17 16:54 17 05/02/17 16:00 93 05/02/17 16:00 100.2 91 17 94/52 (66) 95 I/O 05/02/17 05/02/17 05/02/17 05/03/17 05/03/17 05/03/17 07:00 15:00 23:00 07:00 15:00 23:00 Intake Total 720 ml 485 ml 1050 ml 240 ml Balance 720 ml 485 ml 1050 ml 240 ml Intake Oral 720 ml 480 ml 240 ml 240 ml IV Total 400 ml Packed Cells 400 ml Blood Product IV Normal Saline Flush 5 ml 10 ml # Voids 2 1 1 3 # Bowel Movements 0 0 1 2 Result Diagram: 05/03/17 0500 05/02/17 0650 Imaging Last Impressions Shoulder X-Ray 04/30/17 0000 Signed Impressions: Service Date/Time: Sunday, April 30, 2017 19:40 - CONCLUSION: Right shoulder replacement is noted in good position Heath Armas MD Multiplanar Reconstruction 04/29/17 0800 Signed Impressions: Service Date/Time: Saturday, April 29, 2017 08:24 - CONCLUSION: 3-D reconstructions again demonstrate the comminuted displaced right proximal humerus fracture. Please refer to right shoulder CT examination for further details. Eleazar Triplett MD Pelvis X-Ray 04/29/1715 Signed Impressions: Service Date/Time: Saturday, April 29, 2017 00:21 - CONCLUSION: 1. No acute fracture or dislocation. Adan Shrestha MD Maxillofacial CT 04/29/1715 Signed Impressions: Service Date/Time: Saturday, April 29, 2017 00:59 - CONCLUSION: 1. No acute facial fracture. Adan Shrestha MD Knee X-Ray 04/29/1715 Signed Impressions: Service Date/Time: Saturday, April 29, 2017 00:21 - CONCLUSION: 1. No acute fracture or dislocation. Adan Shrestha MD Humerus X-Ray 04/29/1715 Signed Impressions: Service Date/Time: Saturday, April 29, 2017 00:21 - CONCLUSION: 1. Redemonstration of impacted slightly comminuted fracture of the humeral head with interval reduction of the distal fragment. Adan Shrestha MD ADDENDUM: There is a large fragment of the humeral head that remains inferiorly displaced. Adan Shrestha MD Head CT 04/29/1715 Signed Impressions: Service Date/Time: Saturday, April 29, 2017 00:59 - CONCLUSION: 1. No acute intracranial abnormality. Adan Shrestha MD Chest X-Ray 04/29/1715 Signed Impressions: Service Date/Time: Saturday, April 29, 2017 00:21 - CONCLUSION: 1. Comminuted fracture of the right humeral head. 2. Otherwise, negative portable chest status post trauma. Adan Shrestha MD Chest CT 04/29/176 Signed Impressions: Service Date/Time: Saturday, April 29, 2017 00:59 - CONCLUSION: 1. Comminuted impacted fracture of the right humeral head with displacement of large humeral head fragment anteriorly and inferiorly with respect to the glenoid fossa. 2. Mild diffuse ground glass opacities in the lower lobes, likely atelectasis although pulmonary contusions cannot be entirely excluded. 3. Mildly dilated fluid filled esophagus. Adan Shrestha MD Cervical Spine CT 04/29/17 0016 Signed Impressions: Service Date/Time: Saturday, April 29, 2017 00:59 - CONCLUSION: 1. No acute fracture or subluxation. Adan Shrestha MD Abdomen/Pelvis CT 04/29/17 0016 Signed Impressions: Service Date/Time: Saturday, April 29, 2017 00:59 - CONCLUSION: 1. No CT evidence for acute traumatic injury in the abdomen or pelvis. 2. 8mm nonobstructing calcified calyceal calculus in the inferior pole of the right kidney. Adan Shrestha MD Upper Extremity CT 04/29/17 0000 Signed Impressions: Service Date/Time: Saturday, April 29, 2017 08:24 - CONCLUSION: Comminuted and displaced fracture through the right proximal humeral surgical neck with displaced and dislocated humeral head fragment which is displaced medially and the greater tuberosity and lateral aspect of the humeral head displaced laterally. Eleazar Triplett MD Objective Remarks GENERAL: No distress. SKIN: Ecchymoses surrounding right eye and bandage over left knee. HEAD: Normocephalic. No temporal or scalp tenderness. EYES: Right eye is injected medially, improved. ENT: Nose without bleeding, purulent drainage or septal hematoma. Throat without erythema, tonsillar hypertrophy or exudate. Uvula midline. Airway patent. NECK: Trachea midline. No JVD or lymphadenopathy. Supple, nontender, no meningeal signs. CARDIOVASCULAR: Regular rate and rhythm. 3/6 CORNELIUS. RESPIRATORY: Clear to auscultation. Breath sounds equal bilaterally. No wheezes , rales, or rhonchi. GASTROINTESTINAL: Abdomen soft, non-tender, nondistended. No hepato-splenomegaly , or palpable masses. No guarding. MUSCULOSKELETAL: Right arm in sling. Neurovascularly intact. +2 lower extremity edema. NEUROLOGICAL: Awake and alert. Cranial nerves II through XII intact. Motor and sensory grossly within normal limits. Normal speech. PSYCH: Mood and affect appropriate. Procedures Status post right humeral fracture repair 04/30/17 Medications and IVs Current Medications Medications (Trade) Dose Ordered Sig/Wilfrid Route Start Time Stop Time Status Last Admin (NS Flush) 2 ml UNSCH PRN IV FLUSH 04/29/17 03:00 (NS Flush) 2 ml BID IV FLUSH 04/29/17 09:00 05/02/17 21:00 (Lexapro) 20 mg DAILY PO 04/29/17 09:00 05/03/17 07:49 (Neurontin) 100 mg BID PO 04/29/17 09:00 05/03/17 07:50 (Plaquenil) 200 mg BID PO 04/29/17 09:00 05/03/17 07:49 (Procardia Xl) 60 mg DAILY PO 04/29/17 09:00 05/03/17 07:48 (Protonix) 40 mg DAILY PO 04/29/17 09:00 05/03/17 07:48 (Minipress) 5 mg BID PO 04/29/17 09:00 05/03/17 07:48 (Deltasone) 5 mg DAILY PO 04/29/17 09:00 05/03/17 07:50 (Revatio) 20 mg TID PO 04/29/17 09:00 05/03/17 13:19 (Pravachol) 40 mg DAILY PO 04/29/17 09:00 05/03/17 07:49 (Aspirin Chew) 81 mg DAILY CHEW 05/01/17 09:00 05/03/17 07:49 (Flexeril) 10 mg HS PO 04/30/17 21:00 05/02/17 20:46 (Coumadin) 5 mg MoTuWeThFrSa@1600 PO 05/01/17 16:00 05/03/17 15:31 Miscellaneous Information UNSCH PRN XX 04/30/17 18:45 (Percocet 5-325 Mg) 1 tab Q4H PRN PO 04/30/17 18:45 05/03/17 05:10 (Tylenol) 650 mg Q6H PRN PO 04/30/17 18:45 (Zofran Inj) 4 mg Q4H PRN IVP 04/30/17 18:45 (Benadryl) 25 mg Q6H PRN PO 04/30/17 18:45 (Cathy-Colace) 1 tab BID PO 04/30/17 21:00 05/03/17 07:49 (Milk Of Magnesia Liq) 30 ml Q12H PRN PO 04/30/17 18:45 05/02/17 12:47 (Senokot) 17.2 mg Q12H PRN PO 04/30/17 18:45 (Dulcolax Supp) 10 mg DAILY PRN RECTAL 04/30/17 18:45 (Lactulose Liq) 30 ml DAILY PRN PO 04/30/17 18:45 (Narcan Inj) 0.4 mg UNSCH PRN IV PUSH 04/30/17 18:45 (Coumadin) 10 mg DAILY@1600 PO 05/01/17 16:00 05/03/17 15:31 Pharmacy Profile Note 0 ml @ 0 mls/hr UNSCH OTHER 05/01/17 10:15 (Duoneb Neb) 1 ampule Q2HR NEB PRN NEB 05/02/17 14:30 (Lovenox Inj) 135 mg Q12H SQ 05/03/17 07:00 05/03/17 05:51 (Lasix) 40 mg BID PO 05/03/17 21:00 (Lasix) 20 mg ONCE ONCE PO 05/03/17 16:00 05/03/17 16:01 (KCl) 20 meq Q12HR PO 05/03/17 21:00 (Percocet 5-325 Mg) 2 tab Q4H PRN PO 05/03/17 16:00 UNV (Morphine Inj) 4 mg Q4H PRN IV PUSH 05/03/17 16:00 UNV A/P Assessment and Plan Humeral head fracture S/p mechanical fall. Upper extremity CT: Comminuted and displaced fracture through the right proximal humeral surgical neck with displaced and dislocated humeral head fragment which is displaced medially and the greater tuberosity and lateral aspect of the humeral head displaced laterally. Orthopedic surgery consulted, appreciate recommendations. S/p surgical repair 04/30. - pain control with a bowel regimen. 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 - weightbearing and wound care per ortho. - PT/ OT. May need rehab. - incentive spirometry. Antiphospholipid syndrome/history of DVT/PE Anticoagulated on Coumadin with goal INR of 2.5-3.5. Hematology consult appreciated. S/p IV vitamin K. - anticoagulation following surgery per ortho and hematology. Currently on Lovenox and Coumadin. - follow INR. 2 3. Anemia The pt had an elevated INR on presentation. Hemoglobin decreased following surgery. - follow CBC and transfuse as needed. 1 unit red cells ordered 05/02. Improved. Left knee hematoma Imaging negative for an acute process. - supportive care. - PT. Scleroderma Currently stable. - continue home regimen. Right eye injection Likely s/t burst superficial vessel. - conservative management. Improving. Lower extremity edema The pt endorses pain in the LEs. - d/c IVFs. - increase Lasix to 40 mg BID. - keep legs elevated. - continue anticoagulation. - encourage ambulation. PPx: Lovenox/ Coumadin Discharge Planning May need rehab. Need stabilization of CBC, improvement in pain control. Satya Mercer DO May 03, 2017 15:54
[2017-05-03] MEDS: oxyCODONE/ACETAMINOPHEN 5 MG/325 MG TAB PO PRN ×2 (15:59→20:38)
[2017-05-03] MEDS ORDERED: FUROSEMIDE 20 MG TAB PO ONE (16:00)
[2017-05-03] MEDS: MORPHINE SULFATE 2 MG/ML INJ IV PUSH PRN ×2 (18:37→22:32)
[2017-05-03] MEDS: POTASSIUM CHLORIDE 20 MEQ CONTROLLED RELEASE TAB PO SCH (20:38)
[2017-05-03] MEDS: CYCLOBENZAPRINE HCL 10 MG TAB PO SCH (20:38)
[2017-05-03] MEDS: FUROSEMIDE 40 MG TAB PO SCH (20:39)
[2017-05-04] VITALS (11 sets, daily range): BP systolic 92–109; BP diastolic 45–58; PULSE 80–92; RESP 16–18; TEMP 97.9–99.8; O2SAT 93–96
[2017-05-04] MEDS: oxyCODONE/ACETAMINOPHEN 5 MG/325 MG TAB PO PRN ×3 (00:23→09:06)
[2017-05-04] MEDS: ENOXAPARIN SODIUM 150 MG/ML SYRINGE SQ SCH (07:07)
[2017-05-04] MEDS: MORPHINE SULFATE 2 MG/ML INJ IV PUSH PRN ×3 (07:11→18:34)
[2017-05-04] MEDS: PRAVASTATIN SOD 40 MG TAB PO SCH (08:57)
[2017-05-04] MEDS: POTASSIUM CHLORIDE 20 MEQ CONTROLLED RELEASE TAB PO SCH ×2 (08:58→20:30)
[2017-05-04] MEDS: NIFEdipine 60 MG SUSTAINED RELEASE TAB PO SCH (08:58)
[2017-05-04] MEDS: DOCUSATE SODIUM 50 MG/SENNA 8.6 MG TAB PO SCH ×2 (08:58→20:30)
[2017-05-04] MEDS: PANTOPRAZOLE SOD 40 MG DELAYED RELEASE TAB PO SCH (08:59)
[2017-05-04] MEDS: FUROSEMIDE 40 MG TAB PO SCH ×2 (08:59→20:29)
[2017-05-04] MEDS: predniSONE 5 MG TAB PO SCH (08:59)
[2017-05-04] MEDS: HYDROXYCHLOROQUINE SULFATE 200 MG TAB PO SCH ×2 (08:59→20:29)
[2017-05-04] MEDS: GABAPENTIN 100 MG CAP PO SCH ×2 (08:59→20:30)
[2017-05-04] MEDS: SILDENAFIL CITRATE 20 MG TAB PO SCH ×3 (08:59→18:01)
[2017-05-04] MEDS: ESCITALOPRAM OXALATE 20 MG TAB PO SCH (08:59)
[2017-05-04] MEDS: PRAZOSIN HCL 5 MG CAP PO SCH (08:59)
[2017-05-04] MEDS: ASPIRIN 81 MG CHEW TAB CHEW SCH (08:59)
[2017-05-04] MEDS: SODIUM CHLORIDE 0.9% FLUSH 10 ML FLUSH IV FLUSH SCH ×2 (09:00→20:29)
--- NOTE | 2017-05-04 09:01 | PD.ONC.PN ---
Subjective Subjective Remarks Afebrile overnight Patient reports she has intense pain to her left knee Concerned how she will get back to [place] as she is here by herself No bleeding Objective Data Date Time Temp Pulse Resp B/P (MAP) Pulse Ox O2 Delivery O2 Flow Rate FiO2 05/04/17 08:00 97.9 83 18 92/52 (65) 95 05/04/17 04:00 82 05/04/17 00:21 108/58 (75) 05/04/17 00:10 89 05/04/17 00:00 98.8 89 16 97/46 (63) 93 05/03/17 20:00 88 05/03/17 19:56 99.4 82 18 115/49 (71) 92 05/03/17 15:48 99.2 90 17 142/78 (99) 96 05/03/17 14:00 17 05/03/17 13:00 90 05/03/17 12:00 99.1 88 17 116/53 (74) 95 05/03/17 10:03 96 05/04/17 05/04/17 05/04/17 06:59 14:59 22:59 Intake Total 240 ml Balance 240 ml Result Diagram: 05/03/17 0500 05/02/17 0650 Administered Medications Medications (Trade) Dose Ordered Sig/Wilfrid Route PRN Reason Start Time Stop Time Status Last Admin Dose Admin Sodium Chloride (NS Flush) 2 ml BID IV FLUSH 04/29/17 09:00 05/03/17 20:41 Escitalopram Oxalate (Lexapro) 20 mg DAILY PO 04/29/17 09:00 05/03/17 07:49 Gabapentin (Neurontin) 100 mg BID PO 04/29/17 09:00 05/03/17 20:38 Hydroxychloroquine Sulfate (Plaquenil) 200 mg BID PO 04/29/17 09:00 05/03/17 20:38 Nifedipine (Procardia Xl) 60 mg DAILY PO 04/29/17 09:00 05/03/17 07:48 Pantoprazole Sodium (Protonix) 40 mg DAILY PO 04/29/17 09:00 05/03/17 07:48 Prazosin HCl (Minipress) 5 mg BID PO 04/29/17 09:00 05/03/17 20:39 Prednisone (Deltasone) 5 mg DAILY PO 04/29/17 09:00 05/03/17 07:50 Sildenafil Citrate (Revatio) 20 mg TID PO 04/29/17 09:00 05/03/17 18:14 Pravastatin Sodium (Pravachol) 40 mg DAILY PO 04/29/17 09:00 05/03/17 07:49 Aspirin (Aspirin Chew) 81 mg DAILY CHEW 05/01/17 09:00 05/03/17 07:49 Cyclobenzaprine HCl (Flexeril) 10 mg HS PO 04/30/17 21:00 05/03/17 20:38 Warfarin Sodium (Coumadin) 5 mg MoTuWeThFrSa@1600 PO 05/01/17 16:00 05/03/17 15:31 Oxycodone/ Acetaminophen (Percocet 5-325 Mg) 1 tab Q4H PRN PO PAIN LESS THAN 5 ON SCALE 04/30/17 18:45 05/03/17 05:10 Senna/Docusate Sodium (Cathy-Colace) 1 tab BID PO 04/30/17 21:00 05/03/17 20:38 Magnesium Hydroxide (Milk Of Magnlara Liq) 30 ml Q12H PRN PO Mild constipation 04/30/17 18:45 05/02/17 12:47 Warfarin Sodium (Coumadin) 10 mg DAILY@1600 PO 05/01/17 16:00 05/03/17 15:31 Enoxaparin Sodium (Lovenox Inj) 135 mg Q12H SQ 05/03/17 07:00 05/04/17 07:07 Furosemide (Lasix) 40 mg BID PO 05/03/17 21:00 05/03/17 20:39 Potassium Chloride (KCl) 20 meq Q12HR PO 05/03/17 21:00 05/03/17 20:38 Oxycodone/ Acetaminophen (Percocet 5-325 Mg) 2 tab Q4H PRN PO PAIN GREATER THAN/EQUAL TO 5 05/03/17 16:00 05/04/17 04:22 Morphine Sulfate (Morphine Inj) 4 mg Q4H PRN IV PUSH breakthrough pain 05/03/17 16:00 05/04/17 07:11 Objective Remarks GENERAL: Obese middle aged female sitting up in chair at bedside in no obvious distress SKIN: Warm and dry. Hematomas to bilateral knees HEAD: Normocephalic. Ecchymosis to R eye EYES: No injection or drainage. NECK: Supple, trachea midline. CARDIOVASCULAR: Regular rate and rhythm without murmurs. RESPIRATORY: Clear anteriorly. Breathing unlabored. GASTROINTESTINAL: Abdomen soft, non-tender, nondistended. EXTREMITIES: No cyanosis. R arm immobilized. Hematomas to bilateral knees. Edema to LLE NEUROLOGICAL: No obvious focal deficit. Awake, alert, and oriented x3. 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 Await CBC, INR today 2. Patient would be a good candidate for rehab 3. Obtain ultrasound to left lower extremity to evaluate for emboli Maya Carlos May 04, 2017 09:01
[2017-05-04 09:20] LABS: AUTOMATED NEUTROPHIL # 4.2 TH/MM3 (1.8-7.7); BASOPHIL % 0.7 % (0.0-2.0); EOSINOPHIL # 0.2 TH/MM3 (0-0.4); EOSINOPHIL % 2.7 % (0.0-4.0); HEMATOCRIT 22.7 % (35.0-46.0); HEMOGLOBIN 7.4 GM/DL (11.6-15.3); LYMPH % 14.8 % (9.0-44.0); LYMPHOCYTE # 0.9 TH/MM3 (1.0-4.8); MEAN CELL VOLUME 84.9 FL (80.0-100.0); MEAN CORPUSCULAR HEMOGLOBIN 27.5 PG (27.0-34.0); MEAN CORPUSCULAR HGB CONC 32.4 % (32.0-36.0); MEAN PLATELET VOLUME 7.3 FL (7.0-11.0); MONO % 11.3 % (0.0-8.0); MONOCYTE # 0.7 TH/MM3 (0-0.9); NEUT % 70.5 % (16.0-70.0); PLATELET COUNT 299 TH/MM3 (150-450); RED BLOOD COUNT 2.68 MIL/MM3 (4.00-5.30); RED CELL DISTRIBUTION WIDTH 18.2 % (11.6-17.2)
[2017-05-04 09:32] LABS: INTERNATIONAL NORMALIZED RATIO 2.9 RATIO; PROTHROMBIN TIME - PATIENT 28.8 SEC (9.8-11.6)
[2017-05-04 10:22] LABS: BICARBONATE 31.6 MEQ/L (21.0-32.0); CALCIUM 8.2 MG/DL (8.5-10.1); CREATININE 0.52 MG/DL (0.50-1.00); MAGNESIUM 2.2 MG/DL (1.5-2.5)
--- NOTE | 2017-05-04 14:06 | RADRPT ---
EXAM DATE/TIME: 05/04/2017 13:16 [facility] COMPARISON: No previous studies available for comparison. INDICATIONS : Left leg swelling. MEDICAL HISTORY : Deep venous thrombosis. Gastroesophageal reflux disease. Arthritis. Pulmonary embolism. Anticoagul ant therapy. Cerebrovascular accident. Head trauma. Ulcer. Right arm fracture. Antiphosphlipid syndro me. Blood transfusion. SURGICAL HISTORY : section. Left knee surgery. Right shoulder surgery. ENCOUNTER: Initial ACUITY: 1 day PAIN SCORE: 10/10 LOCATION: Left leg. TECHNIQUE: Venous ultrasound of the leg was performed from the inguinal ligament to the proximal calf. Real-romi e, color Doppler and spectral tracing, compression and augmentation techniques were used. FINDINGS: There is normal compressibility of the deep venous system from the inguinal region to the proximal ca lf. No echogenic clot is seen in the lumen of the common femoral, femoral, popliteal veins. Posterio r tibial veins not well visualized There is a normal response of the venous system to proximal and di stal augmentation and respiration. CONCLUSION: Normal examination. Juwan Gómez MD on May 04, 2017 at 14:03 Board Certified Radiologist. This report was verified electronically.
[2017-05-04] MEDS ORDERED: POTASSIUM CHLORIDE 25 MEQ EFFERVESCENT TAB PO ONE (16:00)
--- NOTE | 2017-05-04 16:02 | HHI.PR ---
Subjective Remarks The patient was very painful. She states the pain in the left knee was a 6 out of 10. She said she had severe pain in her right upper extremity still. She was considering going to rehabilitation following hospitalization. She says the pain medications are not quite strong enough. Discussed with nursing. Objective Vitals Vital Signs Date Time Temp Pulse Resp B/P (MAP) Pulse Ox O2 Delivery O2 Flow Rate FiO2 05/04/17 13:25 18 05/04/17 12:00 80 05/04/17 11:53 98.4 85 18 97/57 (70) 96 05/04/17 10:27 18 05/04/17 09:00 83 18 98/53 (68) 95 05/04/17 08:00 85 05/04/17 08:00 97.9 83 18 92/52 (65) 95 05/04/17 04:00 82 05/04/17 00:21 108/58 (75) 05/04/17 00:10 89 05/04/17 00:00 98.8 89 16 97/46 (63) 93 05/03/17 20:00 88 05/03/17 19:56 99.4 82 18 115/49 (71) 92 I/O 05/03/17 05/03/17 05/03/17 05/04/17 05/04/17 05/04/17 07:00 15:00 23:00 07:00 15:00 23:00 Intake Total 240 ml 480 ml 1385 ml 240 ml Balance 240 ml 480 ml 1385 ml 240 ml Intake Oral 240 ml 480 ml 480 ml 240 ml IV Total 905 ml # Voids 3 2 3 3 # Bowel Movements 2 1 0 0 Result Diagram: 05/04/17 0839 05/04/17 0839 Imaging Last Impressions Lower Extremity Ultrasound 05/04/17 0000 Signed Impressions: Service Date/Time: Thursday, May 04, 2017 13:16 - CONCLUSION: Normal examination. Juwan Gómez MD Shoulder X-Ray 04/30/17 0000 Signed Impressions: Service Date/Time: Sunday, April 30, 2017 19:40 - CONCLUSION: Right shoulder replacement is noted in good position Heath Armas MD Multiplanar Reconstruction 04/29/17 0800 Signed Impressions: Service Date/Time: Saturday, April 29, 2017 08:24 - CONCLUSION: 3-D reconstructions again demonstrate the comminuted displaced right proximal humerus fracture. Please refer to right shoulder CT examination for further details. Eleazar Triplett MD Pelvis X-Ray 04/29/1715 Signed Impressions: Service Date/Time: Saturday, April 29, 2017 00:21 - CONCLUSION: 1. No acute fracture or dislocation. Adan Shrestha MD Maxillofacial CT 04/29/1715 Signed Impressions: Service Date/Time: Saturday, April 29, 2017 00:59 - CONCLUSION: 1. No acute facial fracture. Adan Shrestha MD Knee X-Ray 04/29/1715 Signed Impressions: Service Date/Time: Saturday, April 29, 2017 00:21 - CONCLUSION: 1. No acute fracture or dislocation. Adan Shretsha MD Humerus X-Ray 04/29/1715 Signed Impressions: Service Date/Time: Saturday, April 29, 2017 00:21 - CONCLUSION: 1. Redemonstration of impacted slightly comminuted fracture of the humeral head with interval reduction of the distal fragment. Adan Shrestha MD ADDENDUM: There is a large fragment of the humeral head that remains inferiorly displaced. Adan Shrestha MD Head CT 04/29/1715 Signed Impressions: Service Date/Time: Saturday, April 29, 2017 00:59 - CONCLUSION: 1. No acute intracranial abnormality. Adan Shrestha MD Chest X-Ray 04/29/1715 Signed Impressions: Service Date/Time: Saturday, April 29, 2017 00:21 - CONCLUSION: 1. Comminuted fracture of the right humeral head. 2. Otherwise, negative portable chest status post trauma. Adan Shrestha MD Chest CT 04/29/176 Signed Impressions: Service Date/Time: Saturday, April 29, 2017 00:59 - CONCLUSION: 1. Comminuted impacted fracture of the right humeral head with displacement of large humeral head fragment anteriorly and inferiorly with respect to the glenoid fossa. 2. Mild diffuse ground glass opacities in the lower lobes, likely atelectasis although pulmonary contusions cannot be entirely excluded. 3. Mildly dilated fluid filled esophagus. Adan Shrestha MD Cervical Spine CT 04/29/176 Signed Impressions: Service Date/Time: Saturday, April 29, 2017 00:59 - CONCLUSION: 1. No acute fracture or subluxation. Adan Shrestha MD Abdomen/Pelvis CT 04/29/17 0016 Signed Impressions: Service Date/Time: Saturday, April 29, 2017 00:59 - CONCLUSION: 1. No CT evidence for acute traumatic injury in the abdomen or pelvis. 2. 8mm nonobstructing calcified calyceal calculus in the inferior pole of the right kidney. Adan Shrestha MD Upper Extremity CT 04/29/17 0000 Signed Impressions: Service Date/Time: Saturday, April 29, 2017 08:24 - CONCLUSION: Comminuted and displaced fracture through the right proximal humeral surgical neck with displaced and dislocated humeral head fragment which is displaced medially and the greater tuberosity and lateral aspect of the humeral head displaced laterally. Eleazar Triplett MD Objective Remarks GENERAL: No distress. SKIN: Ecchymoses surrounding right eye. Bilateral knees with bruising. Left knee with superficial wound overlying the knee. HEAD: Normocephalic. No temporal or scalp tenderness. EYES: Right eye is injected medially, improved. ENT: Nose without bleeding, purulent drainage or septal hematoma. Throat without erythema, tonsillar hypertrophy or exudate. Uvula midline. Airway patent. NECK: Trachea midline. No JVD or lymphadenopathy. Supple, nontender, no meningeal signs. CARDIOVASCULAR: Regular rate and rhythm. 3/6 CORNELIUS. RESPIRATORY: Clear to auscultation. Breath sounds equal bilaterally. No wheezes , rales, or rhonchi. GASTROINTESTINAL: Abdomen soft, non-tender, nondistended. No hepato-splenomegaly , or palpable masses. No guarding. MUSCULOSKELETAL: Right arm in sling. Neurovascularly intact. +2 lower extremity edema. NEUROLOGICAL: Awake and alert. Cranial nerves II through XII intact. Motor and sensory grossly within normal limits. Normal speech. PSYCH: Mood and affect appropriate. Procedures Status post right humeral fracture repair 04/30/17 Medications and IVs Current Medications Medications (Trade) Dose Ordered Sig/Wilfrid Route Start Time Stop Time Status Last Admin (NS Flush) 2 ml UNSCH PRN IV FLUSH 04/29/17 03:00 (NS Flush) 2 ml BID IV FLUSH 04/29/17 09:00 05/04/17 09:00 (Lexapro) 20 mg DAILY PO 04/29/17 09:00 05/04/17 08:59 (Neurontin) 100 mg BID PO 04/29/17 09:00 05/04/17 08:59 (Plaquenil) 200 mg BID PO 04/29/17 09:00 05/04/17 08:59 (Procardia Xl) 60 mg DAILY PO 04/29/17 09:00 05/04/17 08:58 (Protonix) 40 mg DAILY PO 04/29/17 09:00 05/04/17 08:59 (Minipress) 5 mg BID PO 04/29/17 09:00 Future Hold 05/04/17 08:59 (Deltasone) 5 mg DAILY PO 04/29/17 09:00 05/04/17 08:59 (Revatio) 20 mg TID PO 04/29/17 09:00 05/04/17 13:02 (Pravachol) 40 mg DAILY PO 04/29/17 09:00 05/04/17 08:57 (Aspirin Chew) 81 mg DAILY CHEW 05/01/17 09:00 05/04/17 08:59 (Flexeril) 10 mg HS PO 04/30/17 21:00 05/03/17 20:38 (Coumadin) 5 mg MoTuWeThFrSa@1600 PO 05/01/17 16:00 05/03/17 15:31 Miscellaneous Information UNSCH PRN XX 04/30/17 18:45 (Percocet 5-325 Mg) 1 tab Q4H PRN PO 04/30/17 18:45 05/03/17 05:10 (Tylenol) 650 mg Q6H PRN PO 04/30/17 18:45 (Zofran Inj) 4 mg Q4H PRN IVP 04/30/17 18:45 (Benadryl) 25 mg Q6H PRN PO 04/30/17 18:45 (Cathy-Colace) 1 tab BID PO 04/30/17 21:00 05/04/17 08:58 (Milk Of Magnesia Liq) 30 ml Q12H PRN PO 04/30/17 18:45 05/02/17 12:47 (Senokot) 17.2 mg Q12H PRN PO 04/30/17 18:45 (Dulcolax Supp) 10 mg DAILY PRN RECTAL 04/30/17 18:45 (Lactulose Liq) 30 ml DAILY PRN PO 04/30/17 18:45 (Narcan Inj) 0.4 mg UNSCH PRN IV PUSH 04/30/17 18:45 (Coumadin) 10 mg DAILY@1600 PO 05/01/17 16:00 Future hold 05/03/17 15:31 Pharmacy Profile Note 0 ml @ 0 mls/hr UNSCH OTHER 05/01/17 10:15 (Duoneb Neb) 1 ampule Q2HR NEB PRN NEB 05/02/17 14:30 (Lasix) 40 mg BID PO 05/03/17 21:00 05/04/17 08:59 (KCl) 20 meq Q12HR PO 05/03/17 21:00 05/04/17 08:58 (Morphine Inj) 2 mg Q6H PRN IV PUSH 05/04/17 15:45 (K-Lyte Cl Eff) 50 meq ONCE ONCE PO 05/04/17 16:00 05/04/17 16:01 UNV (Roxicodone) 15 mg Q4H PRN PO 05/04/17 16:00 UNV (Roxicodone) 15 mg ONCE ONCE PO 05/04/17 16:00 05/04/17 16:01 UNV A/P Assessment and Plan Humeral head fracture S/p mechanical fall. Upper extremity CT: Comminuted and displaced fracture through the right proximal humeral surgical neck with displaced and dislocated humeral head fragment which is displaced medially and the greater tuberosity and lateral aspect of the humeral head displaced laterally. Orthopedic surgery consulted, appreciate recommendations. S/p surgical repair 04/30. - pain control with a bowel regimen. 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 Increase dose of oxycodone. - weightbearing and wound care per ortho. - PT/ OT. May need rehab. Case management assistance appreciated. - incentive spirometry. Antiphospholipid syndrome/history of DVT/PE Anticoagulated on Coumadin with goal INR of 2.5-3.5. Hematology consult appreciated. S/p IV vitamin K. - anticoagulation following surgery per ortho and hematology. Continue Coumadin. - INR 2.9 3/4. D/c Lovenox. Anemia The pt had an elevated INR on presentation. Hemoglobin decreased following surgery. S/p 1 unit red cells. - follow CBC and transfuse as needed. Repeat CBC this afternoon. Left knee pain Imaging negative for an acute process. ? Hematoma formation. Duplex US negative. - supportive care. - PT. - repeat CBC. - consider CT if persists or hemoglobin drops. Scleroderma Currently stable. - continue home regimen. Right eye injection Likely s/t burst superficial vessel. - conservative management. Improving. Lower extremity edema The pt endorses pain in the LEs. - d/c IVFs. - increase Lasix to 40 mg BID. - keep legs elevated. - continue anticoagulation. - encourage ambulation. PPx: Coumadin Discharge Planning Patient being evaluated for rehab Satya Mercer DO May 04, 2017 16:02
[2017-05-04] MEDS: CYCLOBENZAPRINE HCL 10 MG TAB PO SCH (20:30)
[2017-05-05 00:15] VITALS: PULSE 88; O2SAT 94
[2017-05-05] MEDS: MORPHINE SULFATE 2 MG/ML INJ IV PUSH PRN ×2 (03:08→15:24)
[2017-05-05 04:00] VITALS: BP 95/49; PULSE 82; RESP 16; TEMP 98.6; O2SAT 94
[2017-05-05] MEDS: DOCUSATE SODIUM 50 MG/SENNA 8.6 MG TAB PO SCH ×2 (07:37→21:39)
[2017-05-05] MEDS: PRAVASTATIN SOD 40 MG TAB PO SCH (07:37)
[2017-05-05] MEDS: ASPIRIN 81 MG CHEW TAB CHEW SCH (07:37)
[2017-05-05] MEDS: GABAPENTIN 100 MG CAP PO SCH ×2 (07:37→21:39)
[2017-05-05] MEDS: ESCITALOPRAM OXALATE 20 MG TAB PO SCH (07:37)
[2017-05-05] MEDS: SILDENAFIL CITRATE 20 MG TAB PO SCH ×3 (07:37→17:39)
[2017-05-05] MEDS: NIFEdipine 60 MG SUSTAINED RELEASE TAB PO SCH (07:37)
[2017-05-05] MEDS: HYDROXYCHLOROQUINE SULFATE 200 MG TAB PO SCH ×2 (07:37→21:39)
[2017-05-05] MEDS: FUROSEMIDE 40 MG TAB PO SCH ×2 (07:37→21:39)
[2017-05-05] MEDS: predniSONE 5 MG TAB PO SCH (07:38)
[2017-05-05] MEDS: POTASSIUM CHLORIDE 20 MEQ CONTROLLED RELEASE TAB PO SCH ×2 (07:38→21:39)
[2017-05-05] MEDS: SODIUM CHLORIDE 0.9% FLUSH 10 ML FLUSH IV FLUSH SCH ×2 (07:38→21:42)
[2017-05-05] MEDS: PANTOPRAZOLE SOD 40 MG DELAYED RELEASE TAB PO SCH (07:38)
[2017-05-05 08:00] VITALS: BP 109/50; PULSE 85; RESP 17; TEMP 98.8; O2SAT 96
[2017-05-05 09:35] LABS: HEMATOCRIT 24.4 % (35.0-46.0); MEAN CELL VOLUME 85.2 FL (80.0-100.0); MEAN CORPUSCULAR HEMOGLOBIN 27.7 PG (27.0-34.0); MEAN CORPUSCULAR HGB CONC 32.6 % (32.0-36.0); MEAN PLATELET VOLUME 7.3 FL (7.0-11.0); PLATELET COUNT 350 TH/MM3 (150-450); RED BLOOD COUNT 2.87 MIL/MM3 (4.00-5.30); WHITE BLOOD COUNT 7.5 TH/MM3 (4.0-11.0)
[2017-05-05 09:43] LABS: INTERNATIONAL NORMALIZED RATIO 2.6 RATIO
[2017-05-05 12:00] VITALS: BP 106/53; PULSE 85; RESP 16; TEMP 98.4; O2SAT 95
--- NOTE | 2017-05-05 13:10 | PD.ONC.PN ---
Subjective Subjective Remarks Resting comfortably in bed in no distress. Patient reports improved pain, however intermittent episodes with increased pain in right shoulder and bilateral knees. INR therapeutic. Objective Data Date Time Temp Pulse Resp B/P (MAP) Pulse Ox O2 Delivery O2 Flow Rate FiO2 05/05/17 12:00 98.4 85 16 106/53 (70) 95 05/05/17 11:14 18 05/05/17 08:00 98.8 85 17 109/50 (69) 96 05/05/17 04:00 98.6 82 16 95/49 (64) 94 05/05/17 00:15 88 05/05/17 00:15 94 05/04/17 23:40 99.8 92 16 93/45 (61) 05/04/17 20:00 87 05/04/17 18:41 18 05/04/17 17:20 18 05/04/17 16:00 88 05/04/17 16:00 98.4 85 18 109/51 (70) 96 05/04/17 13:25 18 Result Diagram: 05/05/17 0835 05/04/17 0839 Laboratory Results Laboratory Tests Test 05/05/17 08:35 White Blood Count 7.5 TH/MM3 Red Blood Count 2.87 MIL/MM3 Hemoglobin 8.0 GM/DL Hematocrit 24.4 % Mean Corpuscular Volume 85.2 FL Mean Corpuscular Hemoglobin 27.7 PG Mean Corpuscular Hemoglobin Concent 32.6 % Red Cell Distribution Width 18.0 % Platelet Count 350 TH/MM3 Mean Platelet Volume 7.3 FL Prothrombin Time 26.0 SEC Prothromb Time International Ratio 2.6 RATIO Administered Medications Medications (Trade) Dose Ordered Sig/Wilfrid Route PRN Reason Start Time Stop Time Status Last Admin Dose Admin Sodium Chloride (NS Flush) 2 ml BID IV FLUSH 04/29/17 09:00 05/05/17 07:38 Escitalopram Oxalate (Lexapro) 20 mg DAILY PO 04/29/17 09:00 05/05/17 07:37 Gabapentin (Neurontin) 100 mg BID PO 04/29/17 09:00 05/05/17 07:37 Hydroxychloroquine Sulfate (Plaquenil) 200 mg BID PO 04/29/17 09:00 05/05/17 07:37 Nifedipine (Procardia Xl) 60 mg DAILY PO 04/29/17 09:00 05/05/17 07:37 Pantoprazole Sodium (Protonix) 40 mg DAILY PO 04/29/17 09:00 05/05/17 07:38 Prazosin HCl (Minipress) 5 mg BID PO 04/29/17 09:00 Future Hold 05/04/17 08:59 Prednisone (Deltasone) 5 mg DAILY PO 04/29/17 09:00 05/05/17 07:38 Sildenafil Citrate (Revatio) 20 mg TID PO 04/29/17 09:00 05/05/17 07:37 Pravastatin Sodium (Pravachol) 40 mg DAILY PO 04/29/17 09:00 05/05/17 07:37 Aspirin (Aspirin Chew) 81 mg DAILY CHEW 05/01/17 09:00 05/05/17 07:37 Cyclobenzaprine HCl (Flexeril) 10 mg HS PO 04/30/17 21:00 05/04/17 20:30 Oxycodone/ Acetaminophen (Percocet 5-325 Mg) 1 tab Q4H PRN PO PAIN LESS THAN 5 ON SCALE 04/30/17 18:45 05/03/17 05:10 Senna/Docusate Sodium (Cathy-Colace) 1 tab BID PO 04/30/17 21:00 05/05/17 07:37 Magnesium Hydroxide (Milk Of Magnlara Liq) 30 ml Q12H PRN PO Mild constipation 04/30/17 18:45 05/02/17 12:47 Warfarin Sodium (Coumadin) 10 mg DAILY@1600 PO 05/01/17 16:00 Future hold 05/03/17 15:31 Furosemide (Lasix) 40 mg BID PO 05/03/17 21:00 05/05/17 07:37 Potassium Chloride (KCl) 20 meq Q12HR PO 05/03/17 21:00 05/05/17 07:38 Morphine Sulfate (Morphine Inj) 2 mg Q6H PRN IV PUSH breakthrough pain 05/04/17 15:45 05/05/17 03:08 Oxycodone HCl (Roxicodone) 15 mg Q4H PRN PO pain 6-10 05/04/17 16:00 05/05/17 10:10 Objective Remarks GENERAL: overweight lady in no distress SKIN: Warm and dry. HEAD: Normocephalic. EYES: No scleral icterus. No injection or drainage. RESPIRATORY: No accessory muscle use. GASTROINTESTINAL: Abdomen soft, non-tender, nondistended. EXTREMITIES: bilateral lower extremity edema, bruising present on both knees MUSCULOSKELETAL: right arm in sling NEUROLOGICAL: No obvious focal deficit. Awake, alert, and oriented x3. PSYCHIATRIC: Appropriate mood and affect; insight and judgment normal. 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 History of VTE, scleroderma, antiphospholipid antibody syndrome: on warfarin with goal INR 2.5 to 3.5 INR 2.6 today. Continue to monitor closely. 2. Anemia: acute blood loss anemia due to fall and surgery. s/p transfusion. Continue to monitor. 3. Bilateral lower extremity edema: no evidence of clot on ultrasound. Haydee Davis MD May 05, 2017 13:09
[2017-05-05] MEDS: WARFARIN SOD 10 MG TAB PO SCH (15:23)
[2017-05-05] MEDS: WARFARIN SOD 2.5 MG TAB PO SCH (15:23)
[2017-05-05 16:00] VITALS: BP 118/58; PULSE 91; RESP 18; TEMP 98.8; O2SAT 94
--- NOTE | 2017-05-05 16:55 | HHI.PR ---
Subjective Remarks The patient's other son drove down from [place] to surprise her. She was very happy about that. She still required the IV morphine at times. She was complaining of pain above her right eye. She says she does not want to go to rehabilitation and would rather drive home with her son back to [place]. Objective Vitals Vital Signs Date Time Temp Pulse Resp B/P (MAP) Pulse Ox O2 Delivery O2 Flow Rate FiO2 05/05/17 16:00 98.8 91 18 118/58 (78) 94 05/05/17 15:29 18 05/05/17 14:53 18 05/05/17 12:00 98.4 85 16 106/53 (70) 95 05/05/17 08:00 98.8 85 17 109/50 (69) 96 05/05/17 04:00 98.6 82 16 95/49 (64) 94 05/05/17 00:15 88 05/05/17 00:15 94 05/04/17 23:40 99.8 92 16 93/45 (61) 05/04/17 20:00 87 05/04/17 17:20 18 I/O 05/04/17 05/04/17 05/04/17 05/05/17 05/05/17 05/05/17 07:00 15:00 23:00 07:00 15:00 23:00 Intake Total 240 ml 720 ml 400 ml 500 ml Balance 240 ml 720 ml 400 ml 500 ml Intake Oral 240 ml 720 ml 400 ml 500 ml # Voids 3 2 2 3 # Bowel Movements 0 1 1 Result Diagram: 05/05/17 0835 05/04/17 0839 Imaging Last Impressions Lower Extremity Ultrasound 05/04/17 0000 Signed Impressions: Service Date/Time: Thursday, May 04, 2017 13:16 - CONCLUSION: Normal examination. Juwan Gómez MD Shoulder X-Ray 04/30/17 0000 Signed Impressions: Service Date/Time: Sunday, April 30, 2017 19:40 - CONCLUSION: Right shoulder replacement is noted in good position Heath Armas MD Multiplanar Reconstruction 04/29/17 0800 Signed Impressions: Service Date/Time: Saturday, April 29, 2017 08:24 - CONCLUSION: 3-D reconstructions again demonstrate the comminuted displaced right proximal humerus fracture. Please refer to right shoulder CT examination for further details. Eleazar Triplett MD Pelvis X-Ray 04/29/1715 Signed Impressions: Service Date/Time: Saturday, April 29, 2017 00:21 - CONCLUSION: 1. No acute fracture or dislocation. Adan Shrestha MD Maxillofacial CT 04/29/1715 Signed Impressions: Service Date/Time: Saturday, April 29, 2017 00:59 - CONCLUSION: 1. No acute facial fracture. Adan Shrestha MD Knee X-Ray 04/29/1715 Signed Impressions: Service Date/Time: Saturday, April 29, 2017 00:21 - CONCLUSION: 1. No acute fracture or dislocation. Adan Shrestha MD Humerus X-Ray 04/29/1715 Signed Impressions: Service Date/Time: Saturday, April 29, 2017 00:21 - CONCLUSION: 1. Redemonstration of impacted slightly comminuted fracture of the humeral head with interval reduction of the distal fragment. Adan Shrestha MD ADDENDUM: There is a large fragment of the humeral head that remains inferiorly displaced. Adan Shrestha MD Head CT 04/29/1715 Signed Impressions: Service Date/Time: Saturday, April 29, 2017 00:59 - CONCLUSION: 1. No acute intracranial abnormality. Adan Shrestha MD Chest X-Ray 04/29/1715 Signed Impressions: Service Date/Time: Saturday, April 29, 2017 00:21 - CONCLUSION: 1. Comminuted fracture of the right humeral head. 2. Otherwise, negative portable chest status post trauma. Adan Shrestha MD Chest CT 04/29/1715 Signed Impressions: Service Date/Time: Saturday, April 29, 2017 00:59 - CONCLUSION: 1. Comminuted impacted fracture of the right humeral head with displacement of large humeral head fragment anteriorly and inferiorly with respect to the glenoid fossa. 2. Mild diffuse ground glass opacities in the lower lobes, likely atelectasis although pulmonary contusions cannot be entirely excluded. 3. Mildly dilated fluid filled esophagus. Adan Shrestha MD Cervical Spine CT 04/29/17 0016 Signed Impressions: Service Date/Time: Saturday, April 29, 2017 00:59 - CONCLUSION: 1. No acute fracture or subluxation. Adan Shrestha MD Abdomen/Pelvis CT 04/29/17 0016 Signed Impressions: Service Date/Time: Saturday, April 29, 2017 00:59 - CONCLUSION: 1. No CT evidence for acute traumatic injury in the abdomen or pelvis. 2. 8mm nonobstructing calcified calyceal calculus in the inferior pole of the right kidney. Adan Shrestha MD Upper Extremity CT 04/29/17 0000 Signed Impressions: Service Date/Time: Saturday, April 29, 2017 08:24 - CONCLUSION: Comminuted and displaced fracture through the right proximal humeral surgical neck with displaced and dislocated humeral head fragment which is displaced medially and the greater tuberosity and lateral aspect of the humeral head displaced laterally. Eleazar Triplett MD Objective Remarks GENERAL: No distress. SKIN: Ecchymoses surrounding right eye. Bilateral knees with bruising. Left knee with superficial wound overlying the knee. HEAD: Normocephalic. No temporal or scalp tenderness. EYES: Right eye is injected medially, improved. ENT: Nose without bleeding, purulent drainage or septal hematoma. Throat without erythema, tonsillar hypertrophy or exudate. Uvula midline. Airway patent. NECK: Trachea midline. No JVD or lymphadenopathy. Supple, nontender, no meningeal signs. CARDIOVASCULAR: Regular rate and rhythm. 3/6 CORNELIUS. RESPIRATORY: Clear to auscultation. Breath sounds equal bilaterally. No wheezes , rales, or rhonchi. GASTROINTESTINAL: Abdomen soft, non-tender, nondistended. No hepato-splenomegaly , or palpable masses. No guarding. MUSCULOSKELETAL: Right arm in sling. Neurovascularly intact. +2 lower extremity edema. NEUROLOGICAL: Awake and alert. Cranial nerves II through XII intact. Motor and sensory grossly within normal limits. Normal speech. PSYCH: Mood and affect appropriate. Procedures Status post right humeral fracture repair 04/30/17 Medications and IVs Current Medications Medications (Trade) Dose Ordered Sig/Wilfrid Route Start Time Stop Time Status Last Admin (NS Flush) 2 ml UNSCH PRN IV FLUSH 04/29/17 03:00 (NS Flush) 2 ml BID IV FLUSH 04/29/17 09:00 05/05/17 07:38 (Lexapro) 20 mg DAILY PO 04/29/17 09:00 05/05/17 07:37 (Neurontin) 100 mg BID PO 04/29/17 09:00 05/05/17 07:37 (Plaquenil) 200 mg BID PO 04/29/17 09:00 05/05/17 07:37 (Procardia Xl) 60 mg DAILY PO 04/29/17 09:00 05/05/17 07:37 (Protonix) 40 mg DAILY PO 04/29/17 09:00 05/05/17 07:38 (Minipress) 5 mg BID PO 04/29/17 09:00 Future Hold 05/04/17 08:59 (Deltasone) 5 mg DAILY PO 04/29/17 09:00 05/05/17 07:38 (Revatio) 20 mg TID PO 04/29/17 09:00 05/05/17 13:32 (Pravachol) 40 mg DAILY PO 04/29/17 09:00 05/05/17 07:37 (Aspirin Chew) 81 mg DAILY CHEW 05/01/17 09:00 05/05/17 07:37 (Flexeril) 10 mg HS PO 04/30/17 21:00 05/04/17 20:30 Miscellaneous Information UNSCH PRN XX 04/30/17 18:45 (Percocet 5-325 Mg) 1 tab Q4H PRN PO 04/30/17 18:45 05/03/17 05:10 (Tylenol) 650 mg Q6H PRN PO 04/30/17 18:45 (Zofran Inj) 4 mg Q4H PRN IVP 04/30/17 18:45 (Benadryl) 25 mg Q6H PRN PO 04/30/17 18:45 (Cathy-Colace) 1 tab BID PO 04/30/17 21:00 05/05/17 07:37 (Milk Of Magnesia Liq) 30 ml Q12H PRN PO 04/30/17 18:45 05/02/17 12:47 (Senokot) 17.2 mg Q12H PRN PO 04/30/17 18:45 (Dulcolax Supp) 10 mg DAILY PRN RECTAL 04/30/17 18:45 (Lactulose Liq) 30 ml DAILY PRN PO 04/30/17 18:45 (Narcan Inj) 0.4 mg UNSCH PRN IV PUSH 04/30/17 18:45 (Coumadin) 10 mg DAILY@1600 PO 05/01/17 16:00 Future hold 05/05/17 15:23 Pharmacy Profile Note 0 ml @ 0 mls/hr UNSCH OTHER 05/01/17 10:15 (Duoneb Neb) 1 ampule Q2HR NEB PRN NEB 05/02/17 14:30 (Lasix) 40 mg BID PO 05/03/17 21:00 05/05/17 07:37 (KCl) 20 meq Q12HR PO 05/03/17 21:00 05/05/17 07:38 (Morphine Inj) 2 mg Q6H PRN IV PUSH 05/04/17 15:45 05/05/17 15:24 (Roxicodone) 15 mg Q4H PRN PO 05/04/17 16:00 05/05/17 13:33 (Coumadin) 2.5 mg DAILY@1600 PO 05/05/17 16:00 05/05/17 15:23 A/P Assessment and Plan Humeral head fracture S/p mechanical fall. Upper extremity CT: Comminuted and displaced fracture through the right proximal humeral surgical neck with displaced and dislocated humeral head fragment which is displaced medially and the greater tuberosity and lateral aspect of the humeral head displaced laterally. Orthopedic surgery consulted, appreciate recommendations. S/p surgical repair 04/30. - pain control with a bowel regimen. 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 Increase dose of oxycodone. Consider adding OxyContin. - weightbearing and wound care per ortho. - PT/ OT. May need rehab. Case management assistance appreciated. - incentive spirometry. Antiphospholipid syndrome/history of DVT/PE Anticoagulated on Coumadin with goal INR of 2.5-3.5. Hematology consult appreciated. S/p IV vitamin K. Lovenox has been discontinued. - anticoagulation following surgery per ortho and hematology. Continue Coumadin. - INR 2.6 3/5. Anemia The pt had an elevated INR on presentation. Hemoglobin decreased following surgery. S/p 1 unit red cells. - follow CBC and transfuse as needed. Stable. Left knee pain Imaging negative for an acute process. Duplex US negative. - supportive care. - PT. - Lasix for swelling. Scleroderma Currently stable. - continue home regimen. Right eye injection Likely s/t burst superficial vessel. - conservative management. Improving. Lower extremity edema The pt endorses pain in the LEs. - d/c IVFs. - increase Lasix to 40 mg BID. - keep legs elevated. - continue anticoagulation. - encourage ambulation. PPx: Coumadin Discharge Planning Patient being evaluated for rehab. If she refuses rehabilitation she will need to be strong enough for a car ride back to [place] as she wishes to leave for [place] the moment she leaves the hospital. Satya Mercer DO May 05, 2017 16:55
[2017-05-05 20:46] VITALS: BP 101/48; PULSE 84; RESP 18; TEMP 98.9; O2SAT 99
[2017-05-05] MEDS: CYCLOBENZAPRINE HCL 10 MG TAB PO SCH (21:39)
[2017-05-06] VITALS (7 sets, daily range): BP systolic 98–133; BP diastolic 44–65; PULSE 78–90; RESP 18–19; TEMP 97.9–98.9; O2SAT 92–98
[2017-05-06] MEDS: DOCUSATE SODIUM 50 MG/SENNA 8.6 MG TAB PO SCH ×2 (07:40→20:03)
[2017-05-06] MEDS: PRAVASTATIN SOD 40 MG TAB PO SCH (07:40)
[2017-05-06] MEDS: ASPIRIN 81 MG CHEW TAB CHEW SCH (07:40)
[2017-05-06] MEDS: predniSONE 5 MG TAB PO SCH (07:40)
[2017-05-06] MEDS: GABAPENTIN 100 MG CAP PO SCH ×2 (07:40→20:02)
[2017-05-06] MEDS: PANTOPRAZOLE SOD 40 MG DELAYED RELEASE TAB PO SCH (07:40)
[2017-05-06] MEDS: NIFEdipine 60 MG SUSTAINED RELEASE TAB PO SCH (07:40)
[2017-05-06] MEDS: FUROSEMIDE 40 MG TAB PO SCH ×2 (07:40→20:02)
[2017-05-06] MEDS: HYDROXYCHLOROQUINE SULFATE 200 MG TAB PO SCH ×2 (07:40→20:03)
[2017-05-06] MEDS: ESCITALOPRAM OXALATE 20 MG TAB PO SCH (07:41)
[2017-05-06] MEDS: POTASSIUM CHLORIDE 20 MEQ CONTROLLED RELEASE TAB PO SCH ×2 (07:41→20:02)
[2017-05-06] MEDS: SILDENAFIL CITRATE 20 MG TAB PO SCH ×3 (07:41→18:00)
[2017-05-06] MEDS: SODIUM CHLORIDE 0.9% FLUSH 10 ML FLUSH IV FLUSH SCH ×2 (07:41→20:03)
[2017-05-06 08:33] LABS: HEMOGLOBIN 8.1 GM/DL (11.6-15.3); MEAN CORPUSCULAR HEMOGLOBIN 27.2 PG (27.0-34.0); MEAN CORPUSCULAR HGB CONC 32.4 % (32.0-36.0); MEAN PLATELET VOLUME 7.5 FL (7.0-11.0); PLATELET COUNT 418 TH/MM3 (150-450); RED BLOOD COUNT 2.98 MIL/MM3 (4.00-5.30); RED CELL DISTRIBUTION WIDTH 18.2 % (11.6-17.2); WHITE BLOOD COUNT 7.8 TH/MM3 (4.0-11.0)
[2017-05-06 08:42] LABS: INTERNATIONAL NORMALIZED RATIO 2.7 RATIO
[2017-05-06 09:05] LABS: BICARBONATE 30.1 MEQ/L (21.0-32.0); CALCIUM 8.9 MG/DL (8.5-10.1); CREATININE 0.67 MG/DL (0.50-1.00)
--- NOTE | 2017-05-06 10:53 | HHI.PR ---
Subjective Remarks in no acute distress. pain is fairly controlled. Objective Vitals Vital Signs Date Time Temp Pulse Resp B/P (MAP) Pulse Ox O2 Delivery O2 Flow Rate FiO2 05/06/17 07:58 18 05/06/17 07:28 98.8 78 18 100/55 (70) 92 05/06/17 05:40 98.2 90 19 117/60 (79) 98 05/06/17 00:39 98.3 89 19 133/65 (87) 98 05/05/17 20:46 98.9 84 18 101/48 (65) 99 05/05/17 16:00 98.8 91 18 118/58 (78) 94 05/05/17 15:29 18 05/05/17 12:00 98.4 85 16 106/53 (70) 95 I/O 05/05/17 05/05/17 05/05/17 05/06/17 05/06/17 05/06/17 06:59 14:59 22:59 06:59 14:59 22:59 Intake Total 500 ml 480 ml 360 ml Balance 500 ml 480 ml 360 ml Intake Oral 500 ml 480 ml 360 ml # Voids 3 2 2 # Bowel Movements 1 0 0 Result Diagram: 05/06/17 0740 05/06/17 0740 Imaging Last Impressions Lower Extremity Ultrasound 05/04/17 0000 Signed Impressions: Service Date/Time: Thursday, May 04, 2017 13:16 - CONCLUSION: Normal examination. Juwan Gómez MD Shoulder X-Ray 04/30/17 0000 Signed Impressions: Service Date/Time: Sunday, April 30, 2017 19:40 - CONCLUSION: Right shoulder replacement is noted in good position Heath Armas MD Multiplanar Reconstruction 04/29/17 0800 Signed Impressions: Service Date/Time: Saturday, April 29, 2017 08:24 - CONCLUSION: 3-D reconstructions again demonstrate the comminuted displaced right proximal humerus fracture. Please refer to right shoulder CT examination for further details. Eleazar Triplett MD Pelvis X-Ray 04/29/17 0016 Signed Impressions: Service Date/Time: Saturday, April 29, 2017 00:21 - CONCLUSION: 1. No acute fracture or dislocation. Adan Shrestha MD Maxillofacial CT 2/27/18 0016 Signed Impressions: Service Date/Time: Saturday, April 29, 2017 00:59 - CONCLUSION: 1. No acute facial fracture. Adan Shrestha MD Knee X-Ray 04/29/1715 Signed Impressions: Service Date/Time: Saturday, April 29, 2017 00:21 - CONCLUSION: 1. No acute fracture or dislocation. Adan Shrestha MD Humerus X-Ray 04/29/1715 Signed Impressions: Service Date/Time: Saturday, April 29, 2017 00:21 - CONCLUSION: 1. Redemonstration of impacted slightly comminuted fracture of the humeral head with interval reduction of the distal fragment. Adan Shrestha MD ADDENDUM: There is a large fragment of the humeral head that remains inferiorly displaced. Adan Shrestha MD Head CT 04/29/1715 Signed Impressions: Service Date/Time: Saturday, April 29, 2017 00:59 - CONCLUSION: 1. No acute intracranial abnormality. Adan Shrestha MD Chest X-Ray 04/29/1715 Signed Impressions: Service Date/Time: Saturday, April 29, 2017 00:21 - CONCLUSION: 1. Comminuted fracture of the right humeral head. 2. Otherwise, negative portable chest status post trauma. Adan Shrestha MD Chest CT 04/29/176 Signed Impressions: Service Date/Time: Saturday, April 29, 2017 00:59 - CONCLUSION: 1. Comminuted impacted fracture of the right humeral head with displacement of large humeral head fragment anteriorly and inferiorly with respect to the glenoid fossa. 2. Mild diffuse ground glass opacities in the lower lobes, likely atelectasis although pulmonary contusions cannot be entirely excluded. 3. Mildly dilated fluid filled esophagus. Adan Shrestha MD Cervical Spine CT 04/29/176 Signed Impressions: Service Date/Time: Saturday, April 29, 2017 00:59 - CONCLUSION: 1. No acute fracture or subluxation. Adan Shrestha MD Abdomen/Pelvis CT 04/29/176 Signed Impressions: Service Date/Time: Saturday, April 29, 2017 00:59 - CONCLUSION: 1. No CT evidence for acute traumatic injury in the abdomen or pelvis. 2. 8mm nonobstructing calcified calyceal calculus in the inferior pole of the right kidney. Adan Shrestha MD Upper Extremity CT 04/29/17 0000 Signed Impressions: Service Date/Time: Saturday, April 29, 2017 08:24 - CONCLUSION: Comminuted and displaced fracture through the right proximal humeral surgical neck with displaced and dislocated humeral head fragment which is displaced medially and the greater tuberosity and lateral aspect of the humeral head displaced laterally. Eleazar Triplett MD Objective Remarks GENERAL: in no apparent distress. CARDIOVASCULAR: Regular rate and regular rhythm without murmurs, gallops, or rubs. RESPIRATORY: Clear to auscultation. Breath sounds equal bilaterally. No wheezes , rales, or rhonchi. GASTROINTESTINAL: Abdomen soft, non-tender, nondistended. Normal, active bowel sounds MUSCULOSKELETAL: right shoulder in sling NEURO: Alert & Oriented x4 to person, place, time, situation. Moves all ext x4 Procedures Status post right humeral fracture repair 04/30/17 Medications and IVs Inpatient Medications Acetaminophen (Tylenol) 650 mg Q6H PRN PO Temperature > 101.5; Start 04/30/17 at 18:45 Albuterol/ Ipratropium (Duoneb Neb) 1 ampule Q2HR NEB PRN NEB dyspnea; Start at 14:30 Aspirin (Aspirin Chew) 81 mg DAILY CHEW Last administered on 05/06/17at 07:40; Start 05/01/17 at 09:00 Bisacodyl (Dulcolax Supp) 10 mg DAILY PRN RECTAL SEVERE CONSITIPATION; Start at 18:45 Bupivacaine Liposome (Exparel Pf 1.3% Inj) 20 ml ONCE ONCE INFIL Last administered on 04/30/17at 17:17; Start 04/30/17 at 17:17; Stop 04/30/17 at 17:18 ; Status DC Cefazolin Sodium/ Dextrose 50 ml @ 100 mls/hr ONCE STAT IV Last administered on 04/29/17at 01:08; Start 04/29/17 at 01:08; Stop 04/29/17 at 01:37; Status DC Chlorhexidine Gluconate (Chlorhexidine 2% Cloth) 3 pack PHONE CIRCUIT OPERATOR PRN TOPICAL SEE LABEL COMMENTS; Start 04/29/17 at 20:45; Stop 04/30/17 at 20:20; Status DC Clindamycin Phosphate/Dextrose 50 ml @ 200 mls/hr Q8H IV Last administered on 05/01/17at 08:08; Start 04/30/17 at 23:00; Stop 05/01/17 at 07:14; Status DC Cyclobenzaprine HCl (Flexeril) 10 mg HS PO Last administered on 05/05/17at 21:39 ; Start 04/30/17 at 21:00 Dextrose/Sodium Chloride 1,000 ml @ 100 mls/hr Q10H IV Last administered on 05/02/17at 20:37; Start 04/30/17 at 18:37; Stop 05/03/17 at 15:47; Status DC Diphenhydramine HCl (Benadryl) 25 mg Q6H PRN PO ITCHING; Start 04/30/17 at 18: 45 Diphtheria/ Tetanus/Acell Pertussis (Boostrix Inj) 0.5 ml ONCE ONCE IM Last administered on 04/29/17at 01:07; Start 04/29/17 at 01:07; Stop 04/29/17 at 01:09 ; Status DC Enoxaparin Sodium (Lovenox Inj) 135 mg Q12H SQ Last administered on 05/04/17at 07 :07; Start 05/03/17 at 07:00; Stop 05/04/17 at 12:08; Status DC Escitalopram Oxalate (Lexapro) 20 mg DAILY PO Last administered on 05/06/17at 07: 41; Start 04/29/17 at 09:00 Furosemide (Lasix) 20 mg ONCE ONCE PO Last administered on 05/03/17at 15:59; Start 05/03/17 at 16:00; Stop 05/03/17 at 16:01; Status DC Gabapentin (Neurontin) 100 mg BID PO Last administered on 05/06/17at 07:40; Start 04/29/17 at 09:00 Gentamicin Sulfate (Gentamicin Inj) 200 mg ONCE ONCE IRRIGATION ; Start at 16:58; Stop 04/30/17 at 17:24; Status DC Hydromorphone HCl (Dilaudid SHOT LIGHTER Inj) 6 mg UNSCH IV Last administered on 08:01; Start 04/30/17 at 18:45; Stop 05/03/17 at 15:48; Status DC Hydromorphone HCl (Dilaudid Pf Inj) 1 mg Q4H PRN IV PAIN > 5 Last administered on 04/30/17at 12:28; Start 04/29/17 at 03:15; Stop 04/30/17 at 20:21; Status DC Hydroxychloroquine Sulfate (Plaquenil) 200 mg BID PO Last administered on at 07:40; Start 04/29/17 at 09:00 Lactated Ringer's 1,000 ml @ 30 mls/hr Q24H PRN IV SEE LABEL COMMENTS; Start at 20:45; Stop 04/30/17 at 20:20; Status DC Lactulose (Lactulose Liq) 30 ml DAILY PRN PO SEVERE CONSITIPATION; Start at 18:45 Magnesium Hydroxide (Milk Of Magnesia Liq) 30 ml Q12H PRN PO Mild constipation Last administered on 05/02/17at 12:47; Start 04/30/17 at 18:45 Metoprolol Tartrate (Lopressor) 25 mg PHONE CIRCUIT OPERATOR PRN PO SEE LABEL COMMENTS; Start 04/29/17 at 20:45; Stop 04/30/17 at 20:20; Status DC Miscellaneous Information ALL NURSING DEPARTME... UNSCH PRN .XX SEE LABEL COMMENTS; Start 04/30/17 at 19:10; Stop 05/01/17 at 19:09; Status DC Miscellaneous Information (Post-op Orders (for Pharmacy)) STAT ONCE XX ; Start 04/30/17 at 18:45; Stop 04/30/17 at 20:19; Status DC Miscellaneous Medication ([facility] Information) ONCE ONCE XX Last administered on 04/30/17at 18:45; Start 04/30/17 at 18:45; Stop 04/30/17 at 20:19 ; Status DC Morphine Sulfate (Morphine Inj) 2 mg Q6H PRN IV PUSH breakthrough pain Last administered on 05/05/17at 15:24; Start 05/04/17 at 15:45 Naloxone HCl (Narcan Inj) 0.4 mg UNSCH PRN IV PUSH RESPIRATORY RATE LESS THAN 10; Start 04/30/17 at 18:45 Nifedipine (Procardia Xl) 60 mg DAILY PO Last administered on 05/06/17 07:40; Start 04/29/17 at 09:00 Ondansetron HCl (Zofran Inj) 4 mg Q4H PRN IVP NAUSEA OR VOMITING; Start at 18:45 Oxycodone HCl (Roxicodone) 15 mg ONCE ONCE PO Last administered on 05/04/17at 16 :16; Start 05/04/17 at 16:00; Stop 05/04/17 at 16:01; Status DC Oxycodone/ Acetaminophen (Percocet 5-325 Mg) 2 tab Q4H PRN PO PAIN GREATER THAN/EQUAL TO 5 Last administered on 05/04/17 09:06; Start 05/03/17 at 16:00; Stop 05/04/17 at 15:56; Status DC Pantoprazole Sodium (Protonix) 40 mg DAILY PO Last administered on 05/06/17at 07: 40; Start 04/29/17 at 09:00 SHOT LIGHTER Dosage Infused (Pha) 1 Q8HR OTHER Last administered on 05/03/17at 14:00; Start 04/30/17 at 22:00; Stop 05/03/17 at 15:48; Status DC Pharmacy Profile Note 0 ml @ 0 mls/hr UNSCH OTHER ; Start 05/01/17 at 10:15 Phytonadione 10 mg/Sodium Chloride 51 ml @ 102 mls/hr ONCE STAT IV Last administered on 04/29/17 18:35; Start 04/29/17 at 18:33; Stop 04/29/17 at 19:02 ; Status DC Potassium Bicarb/ Potassium Chloride (K-Lyte Cl Eff) 50 meq ONCE ONCE PO Last administered on 05/04/17 16:15; Start 05/04/17 at 16:00; Stop 05/04/17 at 16: 01; Status DC Potassium Chloride (KCl) 20 meq Q12HR PO Last administered on 05/06/17at 07:41; Start 05/03/17 at 21:00 Povidone Iodine (Betadine 5% Antisepsis Kit) 1 applic PHONE CIRCUIT OPERATOR PRN EACH NARE SEE LABEL COMMENTS; Start 04/29/17 at 20:45; Stop 05/02/17 at 20:44; Status DC Pravastatin Sodium (Pravachol) 40 mg DAILY PO Last administered on 05/06/17 07: 40; Start 04/29/17 at 09:00 Prazosin HCl (Minipress) 5 mg BID PO Last administered on 05/04/17 08:59; Start 04/29/17 at 09:00; Status Future Hold Prednisone (Deltasone) 5 mg DAILY PO Last administered on 05/06/17 07:40; Start 04/29/17 at 09:00 Senna/Docusate Sodium (Cathy-Colace) 1 tab BID PO Last administered on 05/06/17 07:40; Start 04/30/17 at 21:00 Sennosides (Senokot) 17.2 mg Q12H PRN PO Moderate constipation; Start 04/30/17 at 18:45 Sildenafil Citrate (Revatio) 20 mg TID PO Last administered on 05/06/17 07:41; Start 04/29/17 at 09:00 Sodium Chloride 500 ml @ 30 mls/hr [id number] PRN IV SEE LABEL COMMENTS; Start at 20:45; Stop 04/30/17 at 20:20; Status DC Sodium Chloride (NS Flush) 2 ml BID IV FLUSH Last administered on 05/06/17 07: 41; Start 04/29/17 at 09:00 Warfarin Sodium (Coumadin) 2.5 mg DAILY@1600 PO Last administered on 05/05/17at 15:23; Start 05/05/17 at 16:00 A/P Assessment and Plan Humeral head fracture S/p mechanical fall. Upper extremity CT: Comminuted and displaced fracture through the right proximal humeral surgical neck with displaced and dislocated humeral head fragment which is displaced medially and the greater tuberosity and lateral aspect of the humeral head displaced laterally. Orthopedic surgery consulted, appreciate recommendations. S/p surgical repair 04/30. - pain control with a bowel regimen. - weightbearing and wound care per ortho. - PT/ OT. May need rehab. Case management assistance appreciated. - incentive spirometry. Antiphospholipid syndrome/history of DVT/PE Anticoagulated on Coumadin with goal INR of 2.5-3.5. Hematology consult appreciated. S/p IV vitamin K. Lovenox has been discontinued. - anticoagulation following surgery per ortho and hematology. Continue Coumadin. - INR 2.7 today. Anemia The pt had an elevated INR on presentation. Hemoglobin decreased following surgery. S/p 1 unit red cells. - follow CBC and transfuse as needed. Stable. Left knee pain Imaging negative for an acute process. Duplex US negative. - supportive care. - PT. - Lasix for swelling. Scleroderma Currently stable. - continue home regimen. Right eye injection Likely s/t burst superficial vessel. - conservative management. Lower extremity edema- now with worsening redness over the left lower extremity - possible cellulitis The pt endorses pain in the LEs. - keep legs elevated. - continue anticoagulation. -start on IV antibiotic and monitor the response. - encourage ambulation. PPx: Coumadin Discharge Planning patient wants to go home on . will ask PT to work with the patient a couple of times a day. d/w the case management. Hiral Fernando MD May 06, 2017 10:53
--- NOTE | 2017-05-06 12:38 | PD.ONC.PN ---
Subjective Subjective Remarks Afebrile overnight. Patient wanting to know when she can be discharged. complains of pain in her right arm, unchanged. Objective Data Date Time Temp Pulse Resp B/P (MAP) Pulse Ox O2 Delivery O2 Flow Rate FiO2 05/06/17 11:33 98.5 81 18 98/44 (62) 93 05/06/17 07:58 18 05/06/17 07:28 98.8 78 18 100/55 (70) 92 05/06/17 05:40 98.2 90 19 117/60 (79) 98 05/06/17 00:39 98.3 89 19 133/65 (87) 98 05/05/17 20:46 98.9 84 18 101/48 (65) 99 05/05/17 16:00 98.8 91 18 118/58 (78) 94 05/05/17 15:29 18 05/06/17 05/06/17 05/06/17 07:00 15:00 23:00 Intake Total 360 ml Balance 360 ml Result Diagram: 05/06/1740 05/06/1740 Laboratory Results Laboratory Tests Test 05/06/17 07:40 White Blood Count 7.8 TH/MM3 Red Blood Count 2.98 MIL/MM3 Hemoglobin 8.1 GM/DL Hematocrit 25.0 % Mean Corpuscular Volume 84.0 FL Mean Corpuscular Hemoglobin 27.2 PG Mean Corpuscular Hemoglobin Concent 32.4 % Red Cell Distribution Width 18.2 % Platelet Count 418 TH/MM3 Mean Platelet Volume 7.5 FL Prothrombin Time 27.0 SEC Prothromb Time International Ratio 2.7 RATIO Blood Urea Nitrogen 8 MG/DL Creatinine 0.67 MG/DL Random Glucose 78 MG/DL Calcium Level 8.9 MG/DL Magnesium Level 2.0 MG/DL Sodium Level 137 MEQ/L Potassium Level 3.6 MEQ/L Chloride Level 99 MEQ/L Carbon Dioxide Level 30.1 MEQ/L Anion Gap 8 MEQ/L Estimat Glomerular Filtration Rate 94 ML/MIN Administered Medications Medications (Trade) Dose Ordered Sig/Wilfrid Route PRN Reason Start Time Stop Time Status Last Admin Dose Admin Sodium Chloride (NS Flush) 2 ml BID IV FLUSH 04/29/17 09:00 05/06/17 07:41 Escitalopram Oxalate (Lexapro) 20 mg DAILY PO 04/29/17 09:00 05/06/17 07:41 Gabapentin (Neurontin) 100 mg BID PO 04/29/17 09:00 05/06/17 07:40 Hydroxychloroquine Sulfate (Plaquenil) 200 mg BID PO 04/29/17 09:00 05/06/17 07:40 Nifedipine (Procardia Xl) 60 mg DAILY PO 04/29/17 09:00 05/06/17 07:40 Pantoprazole Sodium (Protonix) 40 mg DAILY PO 04/29/17 09:00 05/06/17 07:40 Prazosin HCl (Minipress) 5 mg BID PO 04/29/17 09:00 Future Hold 05/04/17 08:59 Prednisone (Deltasone) 5 mg DAILY PO 04/29/17 09:00 05/06/17 07:40 Sildenafil Citrate (Revatio) 20 mg TID PO 04/29/17 09:00 05/06/17 07:41 Pravastatin Sodium (Pravachol) 40 mg DAILY PO 04/29/17 09:00 05/06/17 07:40 Aspirin (Aspirin Chew) 81 mg DAILY CHEW 05/01/17 09:00 05/06/17 07:40 Cyclobenzaprine HCl (Flexeril) 10 mg HS PO 04/30/17 21:00 05/05/17 21:39 Oxycodone/ Acetaminophen (Percocet 5-325 Mg) 1 tab Q4H PRN PO PAIN LESS THAN 5 ON SCALE 04/30/17 18:45 05/03/17 05:10 Senna/Docusate Sodium (Cathy-Colace) 1 tab BID PO 04/30/17 21:00 05/06/17 07:40 Magnesium Hydroxide (Milk Of Magnesia Liq) 30 ml Q12H PRN PO Mild constipation 04/30/17 18:45 05/02/17 12:47 Warfarin Sodium (Coumadin) 10 mg DAILY@1600 PO 05/01/17 16:00 Future hold 05/05/17 15:23 Furosemide (Lasix) 40 mg BID PO 05/03/17 21:00 05/06/17 07:40 Potassium Chloride (KCl) 20 meq Q12HR PO 05/03/17 21:00 05/06/17 07:41 Morphine Sulfate (Morphine Inj) 2 mg Q6H PRN IV PUSH breakthrough pain 05/04/17 15:45 3/5/18 15:24 Oxycodone HCl (Roxicodone) 15 mg Q4H PRN PO pain 6-10 05/04/17 16:00 05/06/17 10:34 Warfarin Sodium (Coumadin) 2.5 mg DAILY@1600 PO 05/05/17 16:00 05/05/17 15:23 Objective Remarks GENERAL: Pleasant obese female, lying upright in hospital bed. she appears comfortable and in nad. SKIN: Warm and dry. scattered bruises on arms and legs. HEAD: Normocephalic. NECK: Supple, trachea midline. CARDIOVASCULAR: Regular rate and rhythm RESPIRATORY: Breath sounds equal bilaterally. No accessory muscle use. GASTROINTESTINAL: Abdomen soft, non-tender, nondistended. EXTREMITIES: No cyanosis. right arm in sling. NEUROLOGICAL: awake and alert. normal speech. Assessment/Plan Problem List: (1) Anticoagulated on Coumadin ICD Codes: Z51.81 - Encounter for therapeutic drug level monitoring; Z79.01 - USP (current) use of anticoagulants Status: Acute Plan: -- Hx of antiphospholipid antibody syndrome (2) Closed 4-part fracture of proximal end of right humerus ICD Codes: S42.291A - Other displaced fracture of upper end of right humerus, initial encounter for closed fracture Plan: -- s/p repair of orthopedic surgery Assessment 1. History of VTE, scleroderma, antiphospholipid antibody syndrome: continue coumadin. maintaining INR at goal, INR is 2.7 today. 2. Anemia: acute blood loss anemia due to fall and surgery. s/p transfusion. hgb today =8.1. no transfusion needed at present. 3. Bilateral lower extremity edema: no evidence of clot on ultrasound. Attending Statement The exam, history, and the medical decision-making described in the above note were completed with the assistance of the mid-level provider. I reviewed and agree with the findings presented. I attest that I had a [id number] encounter with the patient on the same day, and personally performed and documented my assessment and findings in the medical record. 47 yoF with antiphospholipid antibody syndrome, VTE on chronic warfarin therapy admitted after fall at home. S/p orthopedic procedure. Maintain INR 2.5 to 3.5. Nani Dsouza May 06, 2017 12:38 Haydee Davis MD May 06, 2017 16:39
[2017-05-06] MEDS ORDERED: Vancomycin Consult Pharmacy 1 EA OTHER SCH (13:45)
[2017-05-06] MEDS: WARFARIN SOD 2.5 MG TAB PO SCH (14:54)
[2017-05-06] MEDS: WARFARIN SOD 10 MG TAB PO SCH (14:55)
[2017-05-06] MEDS: VANCOMYCIN INJ 2,000 MG in SODIUM CHLORID 0.9% 500 ML INJ 500 ML IV SCH (16:20)
[2017-05-06] MEDS: MORPHINE SULFATE 2 MG/ML INJ IV PUSH PRN (20:02)
[2017-05-06] MEDS: CYCLOBENZAPRINE HCL 10 MG TAB PO SCH (20:02)
[2017-05-07] VITALS (8 sets, daily range): BP systolic 91–114; BP diastolic 44–54; PULSE 79–92; RESP 18–19; TEMP 98.2–98.9; O2SAT 92–100
[2017-05-07] MEDS: MORPHINE SULFATE 2 MG/ML INJ IV PUSH PRN ×3 (04:12→18:24)
[2017-05-07] MEDS: VANCOMYCIN INJ 2,000 MG in SODIUM CHLORID 0.9% 500 ML INJ 500 ML IV SCH ×2 (04:12→16:43)
[2017-05-07] MEDS: predniSONE 5 MG TAB PO SCH (08:48)
[2017-05-07] MEDS: POTASSIUM CHLORIDE 20 MEQ CONTROLLED RELEASE TAB PO SCH ×2 (08:48→21:14)
[2017-05-07] MEDS: SODIUM CHLORIDE 0.9% FLUSH 10 ML FLUSH IV FLUSH SCH ×2 (08:48→21:14)
[2017-05-07] MEDS: ASPIRIN 81 MG CHEW TAB CHEW SCH (08:48)
[2017-05-07] MEDS: FUROSEMIDE 40 MG TAB PO SCH ×2 (08:49→21:08)
[2017-05-07] MEDS: NIFEdipine 60 MG SUSTAINED RELEASE TAB PO SCH (08:50)
[2017-05-07] MEDS: ESCITALOPRAM OXALATE 20 MG TAB PO SCH (08:50)
[2017-05-07] MEDS: HYDROXYCHLOROQUINE SULFATE 200 MG TAB PO SCH ×2 (08:50→21:09)
[2017-05-07] MEDS: DOCUSATE SODIUM 50 MG/SENNA 8.6 MG TAB PO SCH ×2 (08:50→21:00)
[2017-05-07] MEDS: GABAPENTIN 100 MG CAP PO SCH ×2 (08:50→21:08)
[2017-05-07] MEDS: PRAVASTATIN SOD 40 MG TAB PO SCH (08:50)
[2017-05-07] MEDS: PANTOPRAZOLE SOD 40 MG DELAYED RELEASE TAB PO SCH (08:50)
[2017-05-07] MEDS: SILDENAFIL CITRATE 20 MG TAB PO SCH ×3 (08:51→18:22)
[2017-05-07 09:26] LABS: INTERNATIONAL NORMALIZED RATIO 2.9 RATIO; PROTHROMBIN TIME - PATIENT 28.8 SEC (9.8-11.6)
--- NOTE | 2017-05-07 13:11 | HHI.PR ---
Subjective Remarks in no acute distress. pain is fairly controlled. no fever. family at the bedside. Objective Vitals Vital Signs Date Time Temp Pulse Resp B/P (MAP) Pulse Ox O2 Delivery O2 Flow Rate FiO2 05/07/17 11:57 98.6 80 18 109/53 (71) 100 05/07/17 11:07 18 05/07/17 07:23 18 05/07/17 07:20 98.2 80 18 94/44 (61) 92 05/07/17 07:00 80 05/07/17 04:04 87 05/07/17 03:58 98.5 86 18 96/44 (61) 95 05/07/17 00:44 92 05/06/17 20:40 97.9 78 19 116/46 (69) 95 05/06/17 20:35 87 05/06/17 15:39 98.9 81 18 101/53 (69) 93 I/O 05/06/17 05/06/17 05/06/17 05/07/17 05/07/17 05/07/17 07:00 15:00 23:00 07:00 15:00 23:00 Intake Total 360 ml 960 ml 360 ml 1000 ml Balance 360 ml 960 ml 360 ml 1000 ml Intake Oral 360 ml 960 ml 360 ml 480 ml IV Total 520 ml # Voids 2 3 2 1 # Bowel Movements 0 1 0 0 Result Diagram: 05/06/17 0740 05/06/17 0740 Imaging Last Impressions Lower Extremity Ultrasound 05/04/17 0000 Signed Impressions: Service Date/Time: Thursday, May 04, 2017 13:16 - CONCLUSION: Normal examination. Juwan Gómez MD Shoulder X-Ray 04/30/17 0000 Signed Impressions: Service Date/Time: Sunday, April 30, 2017 19:40 - CONCLUSION: Right shoulder replacement is noted in good position Heath Armas MD Multiplanar Reconstruction 04/29/17 0800 Signed Impressions: Service Date/Time: Saturday, April 29, 2017 08:24 - CONCLUSION: 3-D reconstructions again demonstrate the comminuted displaced right proximal humerus fracture. Please refer to right shoulder CT examination for further details. Eleazar Triplett MD Pelvis X-Ray 04/29/17 0016 Signed Impressions: Service Date/Time: Saturday, April 29, 2017 00:21 - CONCLUSION: 1. No acute fracture or dislocation. Adan Shrestha MD Maxillofacial CT 04/29/1715 Signed Impressions: Service Date/Time: Saturday, April 29, 2017 00:59 - CONCLUSION: 1. No acute facial fracture. Adan Shrestha MD Knee X-Ray 04/29/1715 Signed Impressions: Service Date/Time: Saturday, April 29, 2017 00:21 - CONCLUSION: 1. No acute fracture or dislocation. Adan Shrestha MD Humerus X-Ray 04/29/1715 Signed Impressions: Service Date/Time: Saturday, April 29, 2017 00:21 - CONCLUSION: 1. Redemonstration of impacted slightly comminuted fracture of the humeral head with interval reduction of the distal fragment. Adan Shrestha MD ADDENDUM: There is a large fragment of the humeral head that remains inferiorly displaced. Adan Shrestha MD Head CT 04/29/1715 Signed Impressions: Service Date/Time: Saturday, April 29, 2017 00:59 - CONCLUSION: 1. No acute intracranial abnormality. Adan Shrestha MD Chest X-Ray 04/29/1715 Signed Impressions: Service Date/Time: Saturday, April 29, 2017 00:21 - CONCLUSION: 1. Comminuted fracture of the right humeral head. 2. Otherwise, negative portable chest status post trauma. Adan Shrestah MD Chest CT 04/29/176 Signed Impressions: Service Date/Time: Saturday, April 29, 2017 00:59 - CONCLUSION: 1. Comminuted impacted fracture of the right humeral head with displacement of large humeral head fragment anteriorly and inferiorly with respect to the glenoid fossa. 2. Mild diffuse ground glass opacities in the lower lobes, likely atelectasis although pulmonary contusions cannot be entirely excluded. 3. Mildly dilated fluid filled esophagus. Adan Shrestha MD Cervical Spine CT 04/29/176 Signed Impressions: Service Date/Time: Saturday, April 29, 2017 00:59 - CONCLUSION: 1. No acute fracture or subluxation. Adan Shrestha MD Abdomen/Pelvis CT 04/29/17 0016 Signed Impressions: Service Date/Time: Saturday, April 29, 2017 00:59 - CONCLUSION: 1. No CT evidence for acute traumatic injury in the abdomen or pelvis. 2. 8mm nonobstructing calcified calyceal calculus in the inferior pole of the right kidney. Adan Shrestha MD Upper Extremity CT 04/29/17 0000 Signed Impressions: Service Date/Time: Saturday, April 29, 2017 08:24 - CONCLUSION: Comminuted and displaced fracture through the right proximal humeral surgical neck with displaced and dislocated humeral head fragment which is displaced medially and the greater tuberosity and lateral aspect of the humeral head displaced laterally. Eleazar Triplett MD Objective Remarks GENERAL: in no apparent distress. CARDIOVASCULAR: Regular rate and regular rhythm without murmurs, gallops, or rubs. RESPIRATORY: Clear to auscultation. Breath sounds equal bilaterally. No wheezes , rales, or rhonchi. GASTROINTESTINAL: Abdomen soft, non-tender, nondistended. Normal, active bowel sounds MUSCULOSKELETAL: right shoulder in sling NEURO: Alert & Oriented x4 to person, place, time, situation. Moves all ext x4 Procedures Status post right humeral fracture repair 04/30/17 Medications and IVs Inpatient Medications Acetaminophen (Tylenol) 650 mg Q6H PRN PO Temperature > 101.5; Start 04/30/17 at 18:45 Albuterol/ Ipratropium (Duoneb Neb) 1 ampule Q2HR NEB PRN NEB dyspnea; Start at 14:30 Aspirin (Aspirin Chew) 81 mg DAILY CHEW Last administered on 05/07/17at 08:48; Start 05/01/17 at 09:00 Bisacodyl (Dulcolax Supp) 10 mg DAILY PRN RECTAL SEVERE CONSITIPATION; Start at 18:45 Bupivacaine Liposome (Exparel Pf 1.3% Inj) 20 ml ONCE ONCE INFIL Last administered on 04/30/17at 17:17; Start 04/30/17 at 17:17; Stop 04/30/17 at 17:18 ; Status DC Cefazolin Sodium/ Dextrose 50 ml @ 100 mls/hr ONCE STAT IV Last administered on 04/29/17at 01:08; Start 04/29/17 at 01:08; Stop 04/29/17 at 01:37; Status DC Chlorhexidine Gluconate (Chlorhexidine 2% Cloth) 3 pack GRAIN OPERATOR PRN TOPICAL SEE LABEL COMMENTS; Start 04/29/17 at 20:45; Stop 04/30/17 at 20:20; Status DC Clindamycin Phosphate/Dextrose 50 ml @ 200 mls/hr Q8H IV Last administered on 05/01/17at 08:08; Start 04/30/17 at 23:00; Stop 05/01/17 at 07:14; Status DC Cyclobenzaprine HCl (Flexeril) 10 mg HS PO Last administered on 05/06/17at 20:02 ; Start 04/30/17 at 21:00 Dextrose/Sodium Chloride 1,000 ml @ 100 mls/hr Q10H IV Last administered on 05/02/17at 20:37; Start 04/30/17 at 18:37; Stop 05/03/17 at 15:47; Status DC Diphenhydramine HCl (Benadryl) 25 mg Q6H PRN PO ITCHING; Start 04/30/17 at 18: 45 Diphtheria/ Tetanus/Acell Pertussis (Boostrix Inj) 0.5 ml ONCE ONCE IM Last administered on 04/29/17at 01:07; Start 04/29/17 at 01:07; Stop 04/29/17 at 01:09 ; Status DC Enoxaparin Sodium (Lovenox Inj) 135 mg Q12H SQ Last administered on 05/04/17at 07 :07; Start 05/03/17 at 07:00; Stop 05/04/17 at 12:08; Status DC Escitalopram Oxalate (Lexapro) 20 mg DAILY PO Last administered on 05/07/17at 08: 50; Start 04/29/17 at 09:00 Furosemide (Lasix) 20 mg ONCE ONCE PO Last administered on 05/03/17at 15:59; Start 05/03/17 at 16:00; Stop 05/03/17 at 16:01; Status DC Gabapentin (Neurontin) 100 mg BID PO Last administered on 05/07/17at 08:50; Start 04/29/17 at 09:00 Gentamicin Sulfate (Gentamicin Inj) 200 mg ONCE ONCE IRRIGATION ; Start at 16:58; Stop 04/30/17 at 17:24; Status DC Hydromorphone HCl (Dilaudid PEN AND PENCIL REPAIRER Inj) 6 mg UNSCH IV Last administered on 08:01; Start 04/30/17 at 18:45; Stop 05/03/17 at 15:48; Status DC Hydromorphone HCl (Dilaudid Pf Inj) 1 mg Q4H PRN IV PAIN > 5 Last administered on 04/30/17 12:28; Start 04/29/17 at 03:15; Stop 04/30/17 at 20:21; Status DC Hydroxychloroquine Sulfate (Plaquenil) 200 mg BID PO Last administered on at 08:50; Start 04/29/17 at 09:00 Lactated Ringer's 1,000 ml @ 30 mls/hr Q24H PRN IV SEE LABEL COMMENTS; Start at 20:45; Stop 04/30/17 at 20:20; Status DC Lactulose (Lactulose Liq) 30 ml DAILY PRN PO SEVERE CONSITIPATION; Start at 18:45 Magnesium Hydroxide (Milk Of Magnesia Liq) 30 ml Q12H PRN PO Mild constipation Last administered on 05/02/17 12:47; Start 04/30/17 at 18:45 Metoprolol Tartrate (Lopressor) 25 mg GRAIN OPERATOR PRN PO SEE LABEL COMMENTS; Start 04/29/17 at 20:45; Stop 04/30/17 at 20:20; Status DC Miscellaneous Information SPECIFIC LAB TO BE DRAWN:VANCOMYCIN TROUGH DATE TO... ONCE ONCE .XX ; Start 05/08/17 at 04:45; Stop 05/08/17 at 04:46 Miscellaneous Information (Post-op Orders (for Pharmacy)) STAT ONCE XX ; Start 04/30/17 at 18:45; Stop 04/30/17 at 20:19; Status DC Miscellaneous Medication ([facility]) ONCE ONCE XX Last administered on 04/30/17at 18:45; Start 04/30/17 at 18:45; Stop 04/30/17 at 20:19 ; Status DC Morphine Sulfate (Morphine Inj) 2 mg Q6H PRN IV PUSH breakthrough pain Last administered on 05/07/17 11:02; Start 05/04/17 at 15:45 Naloxone HCl (Narcan Inj) 0.4 mg UNSCH PRN IV PUSH RESPIRATORY RATE LESS THAN 10; Start 04/30/17 at 18:45 Nifedipine (Procardia Xl) 60 mg DAILY PO Last administered on 05/07/17 08:50; Start 04/29/17 at 09:00 Ondansetron HCl (Zofran Inj) 4 mg Q4H PRN IVP NAUSEA OR VOMITING; Start at 18:45 Oxycodone HCl (Roxicodone) 15 mg ONCE ONCE PO Last administered on 05/04/17 16 :16; Start 05/04/17 at 16:00; Stop 05/04/17 at 16:01; Status DC Oxycodone/ Acetaminophen (Percocet 5-325 Mg) 2 tab Q4H PRN PO PAIN GREATER THAN/EQUAL TO 5 Last administered on 05/04/17 09:06; Start 05/03/17 at 16:00; Stop 05/04/17 at 15:56; Status DC Pantoprazole Sodium (Protonix) 40 mg DAILY PO Last administered on 05/07/17 08: 50; Start 04/29/17 at 09:00 PEN AND PENCIL REPAIRER Dosage Infused (Pha) 1 Q8HR OTHER Last administered on 05/03/17 14:00; Start 04/30/17 at 22:00; Stop 05/03/17 at 15:48; Status DC Pharmacy Profile Note 0 ml @ 0 mls/hr UNSCH OTHER ; Start 05/06/17 at 13:45 Phytonadione 10 mg/Sodium Chloride 51 ml @ 102 mls/hr ONCE STAT IV Last administered on 04/29/17at 18:35; Start 04/29/17 at 18:33; Stop 04/29/17 at 19:02 ; Status DC Potassium Bicarb/ Potassium Chloride (K-Lyte Cl Eff) 50 meq ONCE ONCE PO Last administered on 05/04/17 16:15; Start 05/04/17 at 16:00; Stop 05/04/17 at 16: 01; Status DC Potassium Chloride (KCl) 20 meq Q12HR PO Last administered on 05/07/17at 08:48; Start 05/03/17 at 21:00 Povidone Iodine (Betadine 5% Antisepsis Kit) 1 applic GRAIN OPERATOR PRN EACH NARE SEE LABEL COMMENTS; Start 04/29/17 at 20:45; Stop 05/02/17 at 20:44; Status DC Pravastatin Sodium (Pravachol) 40 mg DAILY PO Last administered on 05/07/17 08: 50; Start 04/29/17 at 09:00 Prazosin HCl (Minipress) 5 mg BID PO Last administered on 05/04/17 08:59; Start 04/29/17 at 09:00; Status Future Hold Prednisone (Deltasone) 5 mg DAILY PO Last administered on 05/07/17 08:48; Start 04/29/17 at 09:00 Senna/Docusate Sodium (Cathy-Colace) 1 tab BID PO Last administered on 05/07/17 08:50; Start 04/30/17 at 21:00 Sennosides (Senokot) 17.2 mg Q12H PRN PO Moderate constipation; Start 04/30/17 at 18:45 Sildenafil Citrate (Revatio) 20 mg TID PO Last administered on 05/07/17at 12:10; Start 04/29/17 at 09:00 Sodium Chloride 500 ml @ 30 mls/hr [id number] PRN IV SEE LABEL COMMENTS; Start at 20:45; Stop 04/30/17 at 20:20; Status DC Sodium Chloride (NS Flush) 2 ml BID IV FLUSH Last administered on 05/06/17at 20: 03; Start 04/29/17 at 09:00 Vancomycin HCl 2000 mg/Sodium Chloride 520 ml @ 250 mls/hr Q12H IV Last administered on 05/07/17at 04:12; Start 05/06/17 at 17:00 Warfarin Sodium (Coumadin) 10 mg DAILY@1600 PO ; Start 05/08/17 at 16:00 A/P Assessment and Plan Humeral head fracture S/p mechanical fall. Upper extremity CT: Comminuted and displaced fracture through the right proximal humeral surgical neck with displaced and dislocated humeral head fragment which is displaced medially and the greater tuberosity and lateral aspect of the humeral head displaced laterally. Orthopedic surgery consulted, appreciate recommendations. S/p surgical repair 04/30. - pain control with a bowel regimen. - weightbearing and wound care per ortho. - PT/ OT. May need rehab. Case management assistance appreciated. - incentive spirometry. Antiphospholipid syndrome/history of DVT/PE Anticoagulated on Coumadin with goal INR of 2.5-3.5. Hematology consult appreciated. S/p IV vitamin K. Lovenox has been discontinued. - anticoagulation following surgery per ortho and hematology. Continue Coumadin. - INR 2.9 today. Anemia The pt had an elevated INR on presentation. Hemoglobin decreased following surgery. S/p 1 unit red cells. - Stable. Left knee pain Imaging negative for an acute process. Duplex US negative. - supportive care. - PT. - Lasix for swelling. Scleroderma Currently stable. - continue home regimen. Right eye injection Likely s/t burst superficial vessel. - conservative management. Lower extremity edema- now with worsening redness over the left lower extremity - possible cellulitis The pt endorses pain in the LEs. - keep legs elevated. - continue anticoagulation. -staredt on IV antibiotic and monitor the response. - encourage ambulation. PPx: Coumadin Discharge Planning patient wants to go home on . PT to work with the patient a couple of times a day. d/w the case management. Hiral Fernando MD May 07, 2017 13:10
--- NOTE | 2017-05-07 16:56 | PD.ONC.PN ---
Subjective Subjective Remarks Resting comfortably in bed in mild pain from fall. Son at bedside. Objective Data Date Time Temp Pulse Resp B/P (MAP) Pulse Ox O2 Delivery O2 Flow Rate FiO2 05/07/17 16:00 98.4 82 18 91/50 (64) 97 05/07/17 13:11 18 05/07/17 11:57 98.6 80 18 109/53 (71) 100 05/07/17 11:07 18 05/07/17 07:20 98.2 80 18 94/44 (61) 92 05/07/17 07:00 80 05/07/17 04:04 87 05/07/17 03:58 98.5 86 18 96/44 (61) 95 05/07/17 00:44 92 05/06/17 20:40 97.9 78 19 116/46 (69) 95 05/06/17 20:35 87 05/07/17 05/07/17 05/07/17 07:00 15:00 23:00 Intake Total 1000 ml 960 ml Balance 1000 ml 960 ml Result Diagram: 05/06/17 0740 05/06/17 0740 Laboratory Results Laboratory Tests Test 05/07/17 08:10 Prothrombin Time 28.8 SEC Prothromb Time International Ratio 2.9 RATIO Administered Medications Medications (Trade) Dose Ordered Sig/Wilfrid Route PRN Reason Start Time Stop Time Status Last Admin Dose Admin Sodium Chloride (NS Flush) 2 ml BID IV FLUSH 04/29/17 09:00 05/06/17 20:03 Escitalopram Oxalate (Lexapro) 20 mg DAILY PO 04/29/17 09:00 05/07/17 08:50 Gabapentin (Neurontin) 100 mg BID PO 04/29/17 09:00 05/07/17 08:50 Hydroxychloroquine Sulfate (Plaquenil) 200 mg BID PO 04/29/17 09:00 05/07/17 08:50 Nifedipine (Procardia Xl) 60 mg DAILY PO 04/29/17 09:00 05/07/17 08:50 Pantoprazole Sodium (Protonix) 40 mg DAILY PO 04/29/17 09:00 05/07/17 08:50 Prazosin HCl (Minipress) 5 mg BID PO 04/29/17 09:00 Future Hold 05/04/17 08:59 Prednisone (Deltasone) 5 mg DAILY PO 04/29/17 09:00 05/07/17 08:48 Sildenafil Citrate (Revatio) 20 mg TID PO 04/29/17 09:00 05/07/17 12:10 Pravastatin Sodium (Pravachol) 40 mg DAILY PO 04/29/17 09:00 05/07/17 08:50 Aspirin (Aspirin Chew) 81 mg DAILY CHEW 05/01/17 09:00 05/07/17 08:48 Cyclobenzaprine HCl (Flexeril) 10 mg HS PO 04/30/17 21:00 05/06/17 20:02 Oxycodone/ Acetaminophen (Percocet 5-325 Mg) 1 tab Q4H PRN PO PAIN LESS THAN 5 ON SCALE 04/30/17 18:45 05/03/17 05:10 Senna/Docusate Sodium (Cathy-Colace) 1 tab BID PO 04/30/17 21:00 05/07/17 08:50 Magnesium Hydroxide (Milk Of Magnesia Liq) 30 ml Q12H PRN PO Mild constipation 04/30/17 18:45 05/02/17 12:47 Furosemide (Lasix) 40 mg BID PO 05/03/17 21:00 05/07/17 08:49 Potassium Chloride (KCl) 20 meq Q12HR PO 05/03/17 21:00 05/07/17 08:48 Morphine Sulfate (Morphine Inj) 2 mg Q6H PRN IV PUSH breakthrough pain 05/04/17 15:45 05/07/17 11:02 Oxycodone HCl (Roxicodone) 15 mg Q4H PRN PO pain 6-10 05/04/17 16:00 05/07/17 16:45 Vancomycin HCl 2000 mg/Sodium Chloride 520 ml @ 250 mls/hr Q12H IV 05/06/17 17:00 05/07/17 16:43 Objective Remarks GENERAL: overweight lady in no distress HEAD: Normocephalic. EYES: right eye bruising RESPIRATORY: No accessory muscle use. EXTREMITIES: bilateral lower extremity edema MUSCULOSKELETAL: right arm in sling. Bilateral knee bruising. NEUROLOGICAL: No obvious focal deficit. Awake, alert, and oriented x3. PSYCHIATRIC: Appropriate mood and affect; insight and judgment normal. Assessment/Plan Problem List: (1) Anticoagulated on Coumadin ICD Codes: Z51.81 - Encounter for therapeutic drug level monitoring; Z79.01 - termite technician (current) use of anticoagulants Status: Acute Plan: -- Hx of antiphospholipid antibody syndrome (2) Closed 4-part fracture of proximal end of right humerus ICD Codes: S42.291A - Other displaced fracture of upper end of right humerus, initial encounter for closed fracture Plan: -- s/p repair of orthopedic surgery Assessment 1. History of VTE, scleroderma, antiphospholipid antibody syndrome: Continue warfarin at home doses, INR goal 2.5 to 3.5. Cleared for discharge from hematology standpoint. She will need close follow up with day treatment clinician/art therapist Dr. Lindsey and content publisher Dr. Shetty. 2. Anemia: acute blood loss anemia due to fall and surgery. s/p transfusion. 3. Bilateral lower extremity edema: no evidence of clot on ultrasound. Haydee Davis MD May 07, 2017 16:56
[2017-05-07] MEDS: CYCLOBENZAPRINE HCL 10 MG TAB PO SCH (21:09)
[2017-05-08] VITALS: BP 124/58; PULSE 83; RESP 20; TEMP 99.2; O2SAT 94
[2017-05-08] MEDS: MORPHINE SULFATE 2 MG/ML INJ IV PUSH PRN (01:40)
[2017-05-08] MEDS ORDERED: PHARMACY ORDERED LAB ONE (04:45)
[2017-05-08] MEDS: VANCOMYCIN INJ 2,000 MG in SODIUM CHLORID 0.9% 500 ML INJ 500 ML IV SCH (06:16)
[2017-05-08 07:29] VITALS: BP 96/44; PULSE 79; RESP 18; TEMP 98.9; O2SAT 93
[2017-05-08 08:21] LABS: INTERNATIONAL NORMALIZED RATIO 2.4 RATIO; PROTHROMBIN TIME - PATIENT 24.6 SEC (9.8-11.6)
[2017-05-08 08:38] LABS: CREATININE 0.66 MG/DL (0.50-1.00)
[2017-05-08] MEDS: SODIUM CHLORIDE 0.9% FLUSH 10 ML FLUSH IV FLUSH SCH (09:00)
[2017-05-08] MEDS: SILDENAFIL CITRATE 20 MG TAB PO SCH (09:00)
[2017-05-08] MEDS: ESCITALOPRAM OXALATE 20 MG TAB PO SCH (09:23)
[2017-05-08] MEDS: POTASSIUM CHLORIDE 20 MEQ CONTROLLED RELEASE TAB PO SCH (09:23)
[2017-05-08] MEDS: HYDROXYCHLOROQUINE SULFATE 200 MG TAB PO SCH (09:23)
[2017-05-08] MEDS: GABAPENTIN 100 MG CAP PO SCH (09:23)
[2017-05-08] MEDS: NIFEdipine 60 MG SUSTAINED RELEASE TAB PO SCH (09:23)
[2017-05-08] MEDS: predniSONE 5 MG TAB PO SCH (09:23)
[2017-05-08] MEDS: PANTOPRAZOLE SOD 40 MG DELAYED RELEASE TAB PO SCH (09:23)
[2017-05-08] MEDS: DOCUSATE SODIUM 50 MG/SENNA 8.6 MG TAB PO SCH (09:24)
[2017-05-08] MEDS: ASPIRIN 81 MG CHEW TAB CHEW SCH (09:24)
[2017-05-08] MEDS: PRAVASTATIN SOD 40 MG TAB PO SCH (09:24)
[2017-05-08] MEDS: FUROSEMIDE 40 MG TAB PO SCH (09:24)
[2017-05-08] MEDS ORDERED: OXYC-392 PO (10:25)
[2017-05-08] MEDS ORDERED: FURO20TA PO (10:25)
[2017-05-08] MEDS ORDERED: DOXY100C PO (10:45)
--- NOTE | 2017-05-08 10:58 | HHI.PR ---
Subjective Remarks in no acute distress. still with some pain. no other new complaints. d/w the RN. Objective Vitals Vital Signs Date Time Temp Pulse Resp B/P (MAP) Pulse Ox O2 Delivery O2 Flow Rate FiO2 05/08/17 07:29 98.9 79 18 96/44 (61) 93 05/08/17 00:00 99.2 83 20 124/58 (80) 94 05/07/17 20:34 98.9 79 19 114/54 (74) 98 05/07/17 18:29 18 05/07/17 17:45 18 05/07/17 16:00 98.4 82 18 91/50 (64) 97 05/07/17 11:57 98.6 80 18 109/53 (71) 100 I/O 05/07/17 05/07/17 05/07/17 05/08/17 05/08/17 05/08/17 07:00 15:00 23:00 07:00 15:00 23:00 Intake Total 1000 ml 960 ml 480 ml 500 ml Output Total 550 ml Balance 1000 ml 960 ml 480 ml -50 ml Intake Oral 480 ml 960 ml 480 ml 500 ml IV Total 520 ml Output Urine Total 550 ml # Voids 1 2 2 # Bowel Movements 0 1 0 0 Result Diagram: 05/06/17 0740 05/08/17 0635 Imaging Last Impressions Lower Extremity Ultrasound 05/04/17 0000 Signed Impressions: Service Date/Time: Thursday, May 04, 2017 13:16 - CONCLUSION: Normal examination. Juwan Gómez MD Shoulder X-Ray 04/30/17 0000 Signed Impressions: Service Date/Time: Sunday, April 30, 2017 19:40 - CONCLUSION: Right shoulder replacement is noted in good position Heath Armas MD Multiplanar Reconstruction 04/29/17 0800 Signed Impressions: Service Date/Time: Saturday, April 29, 2017 08:24 - CONCLUSION: 3-D reconstructions again demonstrate the comminuted displaced right proximal humerus fracture. Please refer to right shoulder CT examination for further details. Eleazar Triplett MD Pelvis X-Ray 04/29/17 0016 Signed Impressions: Service Date/Time: Saturday, April 29, 2017 00:21 - CONCLUSION: 1. No acute fracture or dislocation. Adan Shrestha MD Maxillofacial CT 04/29/1715 Signed Impressions: Service Date/Time: Saturday, April 29, 2017 00:59 - CONCLUSION: 1. No acute facial fracture. Adan Shrestha MD Knee X-Ray 04/29/1715 Signed Impressions: Service Date/Time: Saturday, April 29, 2017 00:21 - CONCLUSION: 1. No acute fracture or dislocation. Adan Shrestha MD Humerus X-Ray 04/29/1715 Signed Impressions: Service Date/Time: Saturday, April 29, 2017 00:21 - CONCLUSION: 1. Redemonstration of impacted slightly comminuted fracture of the humeral head with interval reduction of the distal fragment. Adan Shrestha MD ADDENDUM: There is a large fragment of the humeral head that remains inferiorly displaced. Adan Shrestha MD Head CT 04/29/1715 Signed Impressions: Service Date/Time: Saturday, April 29, 2017 00:59 - CONCLUSION: 1. No acute intracranial abnormality. Adan Shrestha MD Chest X-Ray 04/29/1715 Signed Impressions: Service Date/Time: Saturday, April 29, 2017 00:21 - CONCLUSION: 1. Comminuted fracture of the right humeral head. 2. Otherwise, negative portable chest status post trauma. Adan Shrestha MD Chest CT 04/29/1715 Signed Impressions: Service Date/Time: Saturday, April 29, 2017 00:59 - CONCLUSION: 1. Comminuted impacted fracture of the right humeral head with displacement of large humeral head fragment anteriorly and inferiorly with respect to the glenoid fossa. 2. Mild diffuse ground glass opacities in the lower lobes, likely atelectasis although pulmonary contusions cannot be entirely excluded. 3. Mildly dilated fluid filled esophagus. Adan Shrestha MD Cervical Spine CT 04/29/1715 Signed Impressions: Service Date/Time: Saturday, April 29, 2017 00:59 - CONCLUSION: 1. No acute fracture or subluxation. Adan Shrestha MD Abdomen/Pelvis CT 04/29/1715 Signed Impressions: Service Date/Time: Saturday, April 29, 2017 00:59 - CONCLUSION: 1. No CT evidence for acute traumatic injury in the abdomen or pelvis. 2. 8mm nonobstructing calcified calyceal calculus in the inferior pole of the right kidney. Adan Shrestha MD Upper Extremity CT 04/29/17 0000 Signed Impressions: Service Date/Time: Saturday, April 29, 2017 08:24 - CONCLUSION: Comminuted and displaced fracture through the right proximal humeral surgical neck with displaced and dislocated humeral head fragment which is displaced medially and the greater tuberosity and lateral aspect of the humeral head displaced laterally. Eleazar Triplett MD Objective Remarks GENERAL: in no apparent distress. CARDIOVASCULAR: Regular rate and regular rhythm without murmurs, gallops, or rubs. RESPIRATORY: Clear to auscultation. Breath sounds equal bilaterally. No wheezes , rales, or rhonchi. GASTROINTESTINAL: Abdomen soft, non-tender, nondistended. Normal, active bowel sounds MUSCULOSKELETAL: right shoulder in sling NEURO: Alert & Oriented x4 to person, place, time, situation. Moves all ext x4 Procedures Status post right humeral fracture repair 04/30/17 Medications and IVs Inpatient Medications Acetaminophen (Tylenol) 650 mg Q6H PRN PO Temperature > 101.5; Start 04/30/17 at 18:45 Albuterol/ Ipratropium (Duoneb Neb) 1 ampule Q2HR NEB PRN NEB dyspnea; Start at 14:30 Aspirin (Aspirin Chew) 81 mg DAILY CHEW Last administered on 05/08/17at 09:24; Start 05/01/17 at 09:00 Bisacodyl (Dulcolax Supp) 10 mg DAILY PRN RECTAL SEVERE CONSITIPATION; Start at 18:45 Bupivacaine Liposome (Exparel Pf 1.3% Inj) 20 ml ONCE ONCE INFIL Last administered on 04/30/17at 17:17; Start 04/30/17 at 17:17; Stop 04/30/17 at 17:18 ; Status DC Cefazolin Sodium/ Dextrose 50 ml @ 100 mls/hr ONCE STAT IV Last administered on 04/29/17at 01:08; Start 04/29/17 at 01:08; Stop 04/29/17 at 01:37; Status DC Chlorhexidine Gluconate (Chlorhexidine 2% Cloth) 3 pack NURSERY HAND PRN TOPICAL SEE LABEL COMMENTS; Start 04/29/17 at 20:45; Stop 04/30/17 at 20:20; Status DC Clindamycin Phosphate/Dextrose 50 ml @ 200 mls/hr Q8H IV Last administered on 05/01/17at 08:08; Start 04/30/17 at 23:00; Stop 05/01/17 at 07:14; Status DC Cyclobenzaprine HCl (Flexeril) 10 mg HS PO Last administered on 05/07/17at 21:09 ; Start 04/30/17 at 21:00 Dextrose/Sodium Chloride 1,000 ml @ 100 mls/hr Q10H IV Last administered on 05/02/17at 20:37; Start 04/30/17 at 18:37; Stop 05/03/17 at 15:47; Status DC Diphenhydramine HCl (Benadryl) 25 mg Q6H PRN PO ITCHING; Start 04/30/17 at 18: 45 Diphtheria/ Tetanus/Acell Pertussis (Boostrix Inj) 0.5 ml ONCE ONCE IM Last administered on 04/29/17at 01:07; Start 04/29/17 at 01:07; Stop 04/29/17 at 01:09 ; Status DC Enoxaparin Sodium (Lovenox Inj) 135 mg Q12H SQ Last administered on 05/04/17at 07 :07; Start 05/03/17 at 07:00; Stop 05/04/17 at 12:08; Status DC Escitalopram Oxalate (Lexapro) 20 mg DAILY PO Last administered on 05/08/17at 09: 23; Start 04/29/17 at 09:00 Furosemide (Lasix) 20 mg ONCE ONCE PO Last administered on 05/03/17at 15:59; Start 05/03/17 at 16:00; Stop 05/03/17 at 16:01; Status DC Gabapentin (Neurontin) 100 mg BID PO Last administered on 05/08/17at 09:23; Start 04/29/17 at 09:00 Gentamicin Sulfate (Gentamicin Inj) 200 mg ONCE ONCE IRRIGATION ; Start at 16:58; Stop 04/30/17 at 17:24; Status DC Hydromorphone HCl (Dilaudid DIE CUTTING MACHINE OPERATOR Inj) 6 mg UNSCH IV Last administered on 08:01; Start 04/30/17 at 18:45; Stop 05/03/17 at 15:48; Status DC Hydromorphone HCl (Dilaudid Pf Inj) 1 mg Q4H PRN IV PAIN > 5 Last administered on 04/30/17 12:28; Start 04/29/17 at 03:15; Stop 04/30/17 at 20:21; Status DC Hydroxychloroquine Sulfate (Plaquenil) 200 mg BID PO Last administered on 09:23; Start 04/29/17 at 09:00 Lactated Ringer's 1,000 ml @ 30 mls/hr Q24H PRN IV SEE LABEL COMMENTS; Start at 20:45; Stop 04/30/17 at 20:20; Status DC Lactulose (Lactulose Liq) 30 ml DAILY PRN PO SEVERE CONSITIPATION; Start at 18:45 Magnesium Hydroxide (Milk Of Magnesia Liq) 30 ml Q12H PRN PO Mild constipation Last administered on 05/02/17 12:47; Start 04/30/17 at 18:45 Metoprolol Tartrate (Lopressor) 25 mg NURSERY HAND PRN PO SEE LABEL COMMENTS; Start 04/29/17 at 20:45; Stop 04/30/17 at 20:20; Status DC Miscellaneous Information SPECIFIC LAB TO BE DRAWN:VANCOMYCIN TROUGH DATE TO... ONCE ONCE .XX Last administered on 05/08/17at 04:45; Start 05/08/17 at 04:45; Stop 05/08/17 at 04:46; Status DC Miscellaneous Information (Post-op Orders (for Pharmacy)) STAT ONCE XX ; Start 04/30/17 at 18:45; Stop 04/30/17 at 20:19; Status DC Miscellaneous Medication ([facility]) ONCE ONCE XX Last administered on 04/30/17at 18:45; Start 04/30/17 at 18:45; Stop 04/30/17 at 20:19 ; Status DC Morphine Sulfate (Morphine Inj) 2 mg Q6H PRN IV PUSH breakthrough pain Last administered on 3/8/18at 01:40; Start 05/04/17 at 15:45 Naloxone HCl (Narcan Inj) 0.4 mg UNSCH PRN IV PUSH RESPIRATORY RATE LESS THAN 10; Start 04/30/17 at 18:45 Nifedipine (Procardia Xl) 60 mg DAILY PO Last administered on 05/08/17 09:23; Start 04/29/17 at 09:00 Ondansetron HCl (Zofran Inj) 4 mg Q4H PRN IVP NAUSEA OR VOMITING; Start at 18:45 Oxycodone HCl (Roxicodone) 15 mg ONCE ONCE PO Last administered on 05/04/17 16 :16; Start 05/04/17 at 16:00; Stop 05/04/17 at 16:01; Status DC Oxycodone/ Acetaminophen (Percocet 5-325 Mg) 2 tab Q4H PRN PO PAIN GREATER THAN/EQUAL TO 5 Last administered on 05/04/17 09:06; Start 05/03/17 at 16:00; Stop 05/04/17 at 15:56; Status DC Pantoprazole Sodium (Protonix) 40 mg DAILY PO Last administered on 05/08/17 09: 23; Start 04/29/17 at 09:00 DIE CUTTING MACHINE OPERATOR Dosage Infused (Pha) 1 Q8HR OTHER Last administered on 05/03/17at 14:00; Start 04/30/17 at 22:00; Stop 05/03/17 at 15:48; Status DC Pharmacy Profile Note 0 ml @ 0 mls/hr UNSCH OTHER ; Start 05/06/17 at 13:45 Phytonadione 10 mg/Sodium Chloride 51 ml @ 102 mls/hr ONCE STAT IV Last administered on 04/29/17at 18:35; Start 04/29/17 at 18:33; Stop 04/29/17 at 19:02 ; Status DC Potassium Bicarb/ Potassium Chloride (K-Lyte Cl Eff) 50 meq ONCE ONCE PO Last administered on 05/04/17 16:15; Start 05/04/17 at 16:00; Stop 05/04/17 at 16: 01; Status DC Potassium Chloride (KCl) 20 meq Q12HR PO Last administered on 05/08/17 09:23; Start 05/03/17 at 21:00 Povidone Iodine (Betadine 5% Antisepsis Kit) 1 applic NURSERY HAND PRN EACH NARE SEE LABEL COMMENTS; Start 04/29/17 at 20:45; Stop 05/02/17 at 20:44; Status DC Pravastatin Sodium (Pravachol) 40 mg DAILY PO Last administered on 05/08/17 09: 24; Start 04/29/17 at 09:00 Prazosin HCl (Minipress) 5 mg BID PO Last administered on 05/04/17 08:59; Start 04/29/17 at 09:00; Status Future Hold Prednisone (Deltasone) 5 mg DAILY PO Last administered on 05/08/17 09:23; Start 04/29/17 at 09:00 Senna/Docusate Sodium (Cathy-Colace) 1 tab BID PO Last administered on 05/08/17 09:24; Start 04/30/17 at 21:00 Sennosides (Senokot) 17.2 mg Q12H PRN PO Moderate constipation; Start 04/30/17 at 18:45 Sildenafil Citrate (Revatio) 20 mg TID PO Last administered on 05/07/17 18:22; Start 04/29/17 at 09:00 Sodium Chloride 500 ml @ 30 mls/hr [id number] PRN IV SEE LABEL COMMENTS; Start at 20:45; Stop 04/30/17 at 20:20; Status DC Sodium Chloride (NS Flush) 2 ml BID IV FLUSH Last administered on 05/08/17 09: 00; Start 04/29/17 at 09:00 Vancomycin HCl 2000 mg/Sodium Chloride 520 ml @ 250 mls/hr Q12H IV Last administered on 05/08/17 06:16; Start 05/06/17 at 17:00 Warfarin Sodium (Coumadin) 10 mg DAILY@1600 PO ; Start 05/08/17 at 16:00 A/P Assessment and Plan Humeral head fracture S/p mechanical fall. Upper extremity CT: Comminuted and displaced fracture through the right proximal humeral surgical neck with displaced and dislocated humeral head fragment which is displaced medially and the greater tuberosity and lateral aspect of the humeral head displaced laterally. Orthopedic surgery consulted, appreciate recommendations. S/p surgical repair 04/30. - pain control with a bowel regimen. - weightbearing and wound care per ortho. - PT/ OT. May need rehab. Case management assistance appreciated. - incentive spirometry. Antiphospholipid syndrome/history of DVT/PE Anticoagulated on Coumadin with goal INR of 2.5-3.5. Hematology consult appreciated. S/p IV vitamin K. Lovenox has been discontinued. - anticoagulation following surgery per ortho and hematology. Continue Coumadin. - INR 2.4 today. -cleared by hematology for discharge. Anemia The pt had an elevated INR on presentation. Hemoglobin decreased following surgery. S/p 1 unit red cells. - Stable. Left knee pain Imaging negative for an acute process. Duplex US negative. - supportive care. - PT. - Lasix for swelling. Scleroderma Currently stable. - continue home regimen. Right eye injection Likely s/t burst superficial vessel. - conservative management. Lower extremity edema- now with worsening redness over the left lower extremity - possible cellulitis The pt endorses pain in the LEs. - keep legs elevated. - continue anticoagulation. -started on IV antibiotic- will switch to po antibiotic upon discharge. - encourage ambulation. PPx: Coumadin Discharge Planning dc home within the next 24 hrs. f/u; pcp, hematology and ortho. see med list. d/w the patient,RN, PT and case management. time spent 35 min. Hiral Fernando MD May 08, 2017 10:58
--- NOTE | 2017-05-08 10:59 | HHI.DS ---
Discharge Summary Admission Date Apr 29, 2017 at 02:21 Discharge Date: May 08, 2017 Admitting Diagnosis Fall, Head injury, supratheraputic INR, right humeral head fx (1) Fracture of humeral head, closed ICD Code: S42.293A - Other displaced fracture of upper end of unspecified humerus, initial encounter for closed fracture Status: Acute (2) Anticoagulated on Coumadin ICD Code: Z51.81 - Encounter for therapeutic drug level monitoring; Z79.01 - director long term care (current) use of anticoagulants Status: Acute Procedures Status post right humeral fracture repair 04/30/17 Brief History - From Admission 47-year-old female with a past medical history significant for scleroderma and anti-phospholipid syndrome anticoagulated on Coumadin presents to the emergency department for evaluation of a fall. The patient reports that she tripped over a rug and fell into a wall. She is on vacation from [place]. The patient is unsure exactly how she landed. She stated that she hit her face on the wall. Denies any loss of consciousness. She complains of right thigh, right arm/shoulder and left knee pain. Her INR is supratherapeutic at 5.0. CBC/BMP: 05/06/17 0740 05/08/17 0635 Significant Findings Laboratory Tests Test 05/06/17 07:40 05/07/17 08:10 05/08/17 06:05 05/08/17 06:35 Red Blood Count 2.98 MIL/MM3 (4.00-5.30) Hemoglobin 8.1 GM/DL (11.6-15.3) Hematocrit 25.0 % (35.0-46.0) Red Cell Distribution Width 18.2 % (11.6-17.2) Prothrombin Time 27.0 SEC (9.8-11.6) 28.8 SEC (9.8-11.6) 24.6 SEC (9.8-11.6) Vancomycin Level Trough 14.5 MCG/ML (5.0-10.0) Imaging Last Impressions Lower Extremity Ultrasound 05/04/17 0000 Signed Impressions: Service Date/Time: Thursday, May 04, 2017 13:16 - CONCLUSION: Normal examination. Juwan Gómez MD Shoulder X-Ray 04/30/17 0000 Signed Impressions: Service Date/Time: Sunday, April 30, 2017 19:40 - CONCLUSION: Right shoulder replacement is noted in good position Heath Armas MD Multiplanar Reconstruction 04/29/17 0800 Signed Impressions: Service Date/Time: Saturday, April 29, 2017 08:24 - CONCLUSION: 3-D reconstructions again demonstrate the comminuted displaced right proximal humerus fracture. Please refer to right shoulder CT examination for further details. Eleazar Triplett MD Pelvis X-Ray 04/29/1715 Signed Impressions: Service Date/Time: Saturday, April 29, 2017 00:21 - CONCLUSION: 1. No acute fracture or dislocation. Adan Shrestha MD Maxillofacial CT 04/29/17 001 Signed Impressions: Service Date/Time: Saturday, April 29, 2017 00:59 - CONCLUSION: 1. No acute facial fracture. Adan Shrestha MD Knee X-Ray 04/29/17 001 Signed Impressions: Service Date/Time: Saturday, April 29, 2017 00:21 - CONCLUSION: 1. No acute fracture or dislocation. Adan Shrestha MD Humerus X-Ray 04/29/17 0016 Signed Impressions: Service Date/Time: Saturday, April 29, 2017 00:21 - CONCLUSION: 1. Redemonstration of impacted slightly comminuted fracture of the humeral head with interval reduction of the distal fragment. Adan Shrestha MD ADDENDUM: There is a large fragment of the humeral head that remains inferiorly displaced. Adan Shrestha MD Head CT 04/29/17 0016 Signed Impressions: Service Date/Time: Saturday, April 29, 2017 00:59 - CONCLUSION: 1. No acute intracranial abnormality. Adan Shrestha MD Chest X-Ray 04/29/17 0016 Signed Impressions: Service Date/Time: Saturday, April 29, 2017 00:21 - CONCLUSION: 1. Comminuted fracture of the right humeral head. 2. Otherwise, negative portable chest status post trauma. Adan Shrestha MD Chest CT 04/29/1715 Signed Impressions: Service Date/Time: Saturday, April 29, 2017 00:59 - CONCLUSION: 1. Comminuted impacted fracture of the right humeral head with displacement of large humeral head fragment anteriorly and inferiorly with respect to the glenoid fossa. 2. Mild diffuse ground glass opacities in the lower lobes, likely atelectasis although pulmonary contusions cannot be entirely excluded. 3. Mildly dilated fluid filled esophagus. Adan Shrestha MD Cervical Spine CT 04/29/1715 Signed Impressions: Service Date/Time: Saturday, April 29, 2017 00:59 - CONCLUSION: 1. No acute fracture or subluxation. Adan Shrestha MD Abdomen/Pelvis CT 04/29/1715 Signed Impressions: Service Date/Time: Saturday, April 29, 2017 00:59 - CONCLUSION: 1. No CT evidence for acute traumatic injury in the abdomen or pelvis. 2. 8mm nonobstructing calcified calyceal calculus in the inferior pole of the right kidney. Adan Shrestha MD Upper Extremity CT 04/29/17 0000 Signed Impressions: Service Date/Time: Saturday, April 29, 2017 08:24 - CONCLUSION: Comminuted and displaced fracture through the right proximal humeral surgical neck with displaced and dislocated humeral head fragment which is displaced medially and the greater tuberosity and lateral aspect of the humeral head displaced laterally. Eleazar Triplett MD PE at Discharge GENERAL: in no apparent distress. CARDIOVASCULAR: Regular rate and regular rhythm without murmurs, gallops, or rubs. RESPIRATORY: Clear to auscultation. Breath sounds equal bilaterally. No wheezes , rales, or rhonchi. GASTROINTESTINAL: Abdomen soft, non-tender, nondistended. Normal, active bowel sounds MUSCULOSKELETAL: right shoulder in sling NEURO: Alert & Oriented x4 to person, place, time, situation. Moves all ext x4 Hospital Course Humeral head fracture S/p mechanical fall. Upper extremity CT: Comminuted and displaced fracture through the right proximal humeral surgical neck with displaced and dislocated humeral head fragment which is displaced medially and the greater tuberosity and lateral aspect of the humeral head displaced laterally. Orthopedic surgery consulted, appreciate recommendations. S/p surgical repair 04/30. - pain control with a bowel regimen. - weightbearing and wound care per ortho. - PT/ OT. May need rehab. Case management assistance appreciated. - incentive spirometry. Antiphospholipid syndrome/history of DVT/PE Anticoagulated on Coumadin with goal INR of 2.5-3.5. Hematology consult appreciated. S/p IV vitamin K. Lovenox has been discontinued. - anticoagulation following surgery per ortho and hematology. Continue Coumadin. - INR 2.4 today. -cleared by hematology for discharge. Anemia The pt had an elevated INR on presentation. Hemoglobin decreased following surgery. S/p 1 unit red cells. - Stable. Left knee pain Imaging negative for an acute process. Duplex US negative. - supportive care. - PT. - Lasix for swelling. Scleroderma Currently stable. - continue home regimen. Right eye injection Likely s/t burst superficial vessel. - conservative management. Lower extremity edema- now with worsening redness over the left lower extremity - possible cellulitis The pt endorses pain in the LEs. - keep legs elevated. - continue anticoagulation. -started on IV antibiotic- will switch to po antibiotic upon discharge. - encourage ambulation. PPx: Coumadin Pt Condition on Discharge: Fair Discharge Disposition: Discharge Home Discharge Time: > 30 minutes Discharge Instructions DIET: Follow Instructions for: Heart Healthy Diet Activities to Avoid: Weight Bearing Hiral Fernando MD May 08, 2017 10:59
[2017-05-08 11:36] VITALS: BP_SYST 121; BP_SYST 95; BP_DIAS 46; BP_DIAS 58; PULSE 82; RESP 18; TEMP 99.2; O2SAT 97
[2017-05-08] MEDS ORDERED: PERC5TAB12 PO (12:43)
[2017-05-08] MEDS ORDERED: WARFARIN SOD 10 MG TAB PO SCH (16:00)
[2017-05-10] MEDS ORDERED: PHARMACY ORDERED LAB ONE (04:45)
== END 2017-05-08 17:19 | disposition home or self-care (01) | DRG 483 ==
LOC: NEPE 00:06 → NEDA 02:21 → NEDH 06:16 → N06B 13:36
PROVIDERS: ADMIT Internal Medicine; ATTEND Internal Medicine
PROC: 0PSCXZZ Reposition Right Humeral Head, External Approach (ICD-10-PCS; 2017-04-29)
PROC: 0RRJ00Z Replacement of Right Shoulder Joint with Reverse Ball and Socket Synthetic Substitute, Open Approach (ICD-10-PCS; principal; 2017-04-30 15:47)
PROC: 30233N1 Transfusion of Nonautologous Red Blood Cells into Peripheral Vein, Percutaneous Approach (ICD-10-PCS; 2017-05-02)
DX: S42.211A Unspecified displaced fracture of surgical neck of right humerus, initial encounter for closed fracture (principal); D68.61 Antiphospholipid syndrome; M34.9 Systemic sclerosis, unspecified; D62 Acute posthemorrhagic anemia; S09.90XA Unspecified injury of head, initial encounter; L03.116 Cellulitis of left lower limb; M25.062 Hemarthrosis, left knee; Z68.43 Body mass index [BMI] 50.0-59.9, adult; S42.251A Displaced fracture of greater tuberosity of right humerus, initial encounter for closed fracture; S80.02XA Contusion of left knee, initial encounter; E66.01 Morbid (severe) obesity due to excess calories; G89.29 Other chronic pain; R60.0 Localized edema; Z79.01 Long term (current) use of anticoagulants; Z86.711 Personal history of pulmonary embolism; Z86.718 Personal history of other venous thrombosis and embolism; W01.198A Fall on same level from slipping, tripping and stumbling with subsequent striking against other object, initial encounter; Y92.000 Kitchen of unspecified non-institutional (private) residence as the place of occurrence of the external cause
CPT/HCPCS: 23650; 36430; 70450; 70486; 71045; 71260; 72125; 72170; 73020; 73200; 73560; 74177; 76377; 76937; 80048; 80202; 80307; 82565; 82805; 83735; 84702; 85025; 85027; 85384; 85610; 85730; 86077; 86850; 86870; 86900; 86901; 86902; 86920; 86922; 90471; 90715; 93971; 94150; 94664; 96365; 96375; 99152; C1776; C9290; J0131; J0690; J1100; J1170; J1644; J1650; J2175; J2250; J2270; J2370; J2405; J3010; J3370; J3430; J7030; J7040; J7120; J7512; J7613; L0150; P9016; Q9967